=== PATIENT | female | born 1940 | race Caucasian/White ===

== ENCOUNTER 2023-01-03 11:49 | Emergency (ER) | payer OTHER ==
--- OUTSIDE RECORDS SUMMARY | 2023-01-03 12:00 | XMS REPORT | Continuity of Care Document ---
:1940 Author Organization [facility] t Address [address] [facility] [address] [place] [id number] Care Team Providers Name Role Phone Kymberly Stover MD Primary Care Physician [phone] Nathalie Rivers MA Attending Clinician Unavailable Sakina CRUZ, Wild Attending Clinician Therapy, [facility] Attending Clinician Unavailable Hawa Rolon MD Attending Clinician HAWA ROLON Attending Clinician Unavailable Doctor Unassigned, Wrens Attending Clinician Unavailable Lavelle Zacraias Attending Clinician Unavailable Lauren Valente MD Attending Clinician Pedro VORA, Neli Attending Clinician Steve Hanna DO Attending Clinician Selene Vila MD Attending Clinician Ck JAIN, Marc Attending Clinician Unavailable Kymberly Stover MD Attending Clinician [phone] Sarah Arroyo RN Attending Clinician Unavailable Jacquie CRUZ, Andres Kirkland Attending Clinician Maikol JAIN, [facility] Attending Clinician Unavailable TONI PAYNE Attending Clinician Unavailable KYMBERLY STOVER Attending Clinician Unavailable DONALD SMITH Attending Clinician Unavailable Carlos Alberto Cash Attending Clinician Unavailable Lavelle Zacarias Admitting Clinician Unavailable WILD PRESLEY Admitting Clinician Unavailable Carlos Alberto Cash Admitting Clinician Unavailable Payers Payer Name Policy Type Policy Number Effective Date Expiration Date S ource Problems Condition Condition Condition Status Onset Resolution Last Treating Co mments Source Name Details Category Date Date Treatment Clinician Date 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 10-05 st 00:00: Hospita 00 l Dysuria Dysuria Disease Active Univers 7-12 ity of 00:00: [place] 00 [facility] Acute Acute Disease Active Univers cystitis cystitis 01-16 ity of without without 00:00: [place] hematuria hematuria 00 [facility] Atrial Atrial Disease Active Univers fibrillati fibrillati 305 it y of on with on with 00:00: [place] RVR RVR 00 [facility] Chronic Chronic Disease Active Univers pain of pain of 1-29 [place]y [place] knees [place] [facility] Anxiety Anxiety Disease Active Methodi 01-28 00:00: Hospita 00 l Benign Benign Disease Active Methodi essential essential 01-28 hypertensi hypertensi 00:00: Ho spita on on 00 l Insomnia Insomnia Disease Active Meth[facility] di 01-28 00:00: Hospita 00 l Prediabete Prediabete Disease Active M ethodi s s 01-28 00:00: Hospita 00 l Seasonal Seasonal Disease Active Meth[facility] di allergies allergies 01-28 00:00: Hospita 00 l AF (atrial AF (atrial Disease Active M ethodi fibrillati fibrillati 01-28 on) on) 00:00: Hospita 00 l Diarrhea Diarrhea Disease Active 2015-07 [facility] di 0 00:00: Hospita 00 l Abdominal Abdominal Disease Active 2015-07 Met [facility] cramps cramps 0 00:00: Hospita 00 l 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 00:00: Hospit a 00 l Lactose Lactose Disease Active Methodi intoleranc intoleranc 1- st e e 00:00: Hospita 00 l Change in Change in Disease Active Met hodi bowel bowel st habit habit Hospita l Chronic Chronic Disease Active Methodi diarrhea diarrhea st Hospita l Diverticul Diverticul Disease Active M ethodi osis osis st Hospita l Hemorrhoid Hemorrhoid Disease Active M ethodi s s st Hospita l Fecal Fecal Disease Active Methodi incontinen incontinen st ce ce Hospita l Change in Change in Disease Active Met hodi bowel bowel st habit habit Hospita l Allergies, Adverse Reactions, Alerts Allergy Allergy Status Severity Reaction(s) Onset Inactive Treating Comm ents Source Name Type Date Date Clinician PENICILL DRUG Active N/V 20190 Univers IN INGREDI 3-05 ity of 00:00: [place] 00 [facility] Penicill Propensi Active Nausea 0 Univer s in ty to and/or 09-09 ity of adverse Vomiting 00:00: [place] reaction 00 Medical s Branch Penicill Propensi Active Nausea 0 Univer s in ty to and/or 305 ity of adverse Vomiting 00:00: [place] reaction 00 Medical s Branch Codeine Propensi Active Hallucinatio 2018-0 M ethodi ty to ns 02-05 st adverse 00:00: Hospita reaction 00 l s to drug CODEINE DRUG Active Hallucinates Uni vers INGREDI 02-05 ity of 00:00: [place] 00 Medical Branch Codeine Propensi Active Hallucinatio 2018-0 U nivers ty to ns 02-05 ity of adverse 00:00: [place] reaction 00 Medical s Branch Penicill DA Active SV 2016-0 [facility]12 [place] [facility] codeine DA Active SV [facility] 5[facility]12 [place] 00:00: d 00 Medical [place] Penicill DA Active SV VOMITING [facility] ins 5[facility]12 [place] 00:[facility]: d [facility] codeine DA Active SV HALLUCINATIO 2016-0 [facility] NS 5-12 [place] 00:[facility]: d 00 [facility] Family History Family Member Diagnosis Comments Start Date Stop Date Source Natural brother Stroke [facility] Natural father Heart attack [facility] Natural mother [facility] Paternal grandfather [facility] Social History Social Habit Start Date Stop Date Quantity Comments Source Gender identity [facility] Sexual orientation [facility] History SDOH [facility] Alcohol Frequency Hospita l History SDOH [facility] Alcohol Std Drinks Hospit al History SDOH [facility] Exposure [facility] Not sure [facility] SARS-CoV-2 (event) Hospit al History of Social 2022-09-11 2022-09-[address] function 00:00:00 00:00:00 Hospital Alcohol intake 2021-11-29 2021-11-29 Current drinker [facility] 00:00:00 00:00:00 of alcohol Hospital (finding) Tobacco use and 2018-02-05 2018-02-05 Smokeless [facility] exposure 00:00:00 00:00:00 tobacco non-user Hospital Alcohol Comment 2016-06-05 2016-06-05 I don't drink [facility] 00:00:00 00:00:00 every Hospital week/occasionall y Sex Assigned At [birth year] [facility] Smoking Status Start Date Stop Date Source Never smoked tobacco [facility] Medications Ordered Filled Start Stop Current Ordering Indication Dosage Frequency Signature Comments Components Source Medication Medication Date Date Medication? Clinician (SIG) Name Name gabapentin Yes 300mg Q.[id number] Take 300 [facility] (NEURONTIN) 1-19 [id number] mg by s t 300 mg 08:59: 3D mouth 3 Hospita capsule 14 (three) l times a day. atorvastati Yes 20mg QD Take 20 mg Methodi n (LIPITOR) 1-[address] 20 mg 08:59: daily. Hospita tablet 14 Default OP l ins cholecalcif Yes 1000U QD Take 1,000 Methodi jerry, 1-[address] vitamin D3, 08:59: mouth Hospi ta (cholecalci 14 daily. l ferol) 1,000 unit tablet gabapentin Yes 300mg Q.[id number] Take 300 [facility] (NEURONTIN) 1-19 [id number] mg by s t 300 mg 08:59: 3D mouth 3 Hospita capsule 14 (three) l times a day. atorvastati Yes 20mg QD Take 20 mg Methodi n (LIPITOR) 1-[address] 20 mg 08:59: daily. Hospita tablet 14 Default OP l ins cholecalcif 2022-0 Yes 1000U QD Take 1,000 Methodi jerry, 1-[address] vitamin D3, 08:59: mouth Hospi ta (cholecalci 14 daily. l ferol) 1,000 unit tablet gabapentin 2022-0 Yes 300mg Q.[id number] Take 300 [facility] (NEURONTIN) 1-19 [id number] mg by s t 300 mg 08:59: 3D mouth 3 Hospita capsule 14 (three) l times a day. atorvastati 2022-0 Yes 20mg QD Take 20 mg Methodi n (LIPITOR) 1-[address] 20 mg 08:59: daily. Hospita tablet 14 Default OP l ins cholecalcif 2022-0 Yes 1000U QD Take 1,000 Methodi jerry, 1-[address] vitamin D3, 08:59: mouth Hospi ta (cholecalci 14 daily. l ferol) 1,000 unit tablet gabapentin 2022-0 Yes 300mg Q.[id number] Take 300 [facility] (NEURONTIN) 1-19 [id number] mg by s t 300 mg 08:59: 3D mouth 3 Hospita capsule 14 (three) l times a day. atorvastati 2022-0 Yes 20mg QD Take 20 mg Methodi n (LIPITOR) 1-[address] 20 mg 08:59: daily. Hospita tablet 14 Default OP l ins cholecalcif 2022-0 Yes 1000U QD Take 1,000 Methodi jerry, 1-[address] vitamin D3, 08:59: mouth Hospi ta (cholecalci 14 daily. l ferol) 1,000 unit tablet gabapentin 2022-0 Yes 300mg Q.[id number] Take 300 [facility] (NEURONTIN) 1-19 [id number] mg by s t 300 mg 08:59: 3D mouth 3 Hospita capsule 14 (three) l times a day. atorvastati 2022-0 Yes 20mg QD Take 20 mg Methodi n (LIPITOR) 1-[address] 20 mg 08:59: daily. Hospita tablet 14 Default OP l ins cholecalcif 2022-0 Yes 1000U QD Take 1,000 Methodi jerry, 1-[address] vitamin D3, 08:59: mouth Hospi ta (cholecalci 14 daily. l ferol) 1,000 unit tablet gabapentin 2021-0 Yes 300mg Q.[id number] Take 300 Methodi (NEURONTIN) 1-19 [id number] mg by s t 300 mg 08:59: 3D mouth 3 Hospita capsule 14 (three) l times a day. atorvastati 2021-0 Yes 20mg QD Take 20 mg Methodi n (LIPITOR) 1-[address] 20 mg 08:59: daily. Hospita tablet 14 Default OP l ins cholecalcif 2021-0 Yes 1000U QD Take 1,000 Methodi jerry, 1-[address] vitamin D3, 08:59: mouth Hospi ta (cholecalci 14 daily. l ferol) 1,000 unit tablet gabapentin 2021-0 Yes 300mg Q.[id number] Take 300 [facility] (NEURONTIN) 1-19 [id number] mg by s t 300 mg 08:59: 3D mouth 3 Hospita capsule 14 (three) l times a day. atorvastati 0 Yes 20mg QD Take 20 mg Methodi n (LIPITOR) 1-[address] 20 mg 08:59: daily. Hospita tablet 14 Default OP l ins cholecalcif 0 Yes 1000U QD Take 1,000 Methodi jerry, 1-[address] vitamin D3, 08:59: mouth Hospi ta (cholecalci 14 daily. l ferol) 1,000 unit tablet lisinopril Yes 20mg Q.5D Take 20 mg M ethodi (PRINIVIL,Z 03-[address] ESTRIL) 20 14:21: (two) Hospit a mg tablet 15 times a l day. MULTIVIT,AR Yes Take by Met hodi [id number] 03-[address] ITK-CQ10 14:21: Hospita ORAL 15 l vit B comp 0 Yes 1{tbl} QD Take 1 Met [facility]odi no.3-folic- 03-[address] C-biotin 14:21: mouth Hospita (NEPHRO-VIT 15 daily. l E RX) 1-60-300 mg-mg-mcg tablet lisinopril 0 Yes 20mg Q.5D Take 20 mg M ethodi (PRINIVIL,Z 03-[address] ESTRIL) 20 14:21: (two) Hospit a mg tablet 15 times a l day. MULTIVIT,AR Yes Take by Met gilles [id number] 03-29 mouth. ITK-CQ10 14:21: Hospita ORAL 15 l vit B comp 2020-0 Yes 1{tbl} QD Take 1 Met hodi no.3-folic- 9-[address] C-biotin 14:21: mouth Hospita (NEPHRO-VIT 15 daily. l E RX) 1-60-300 mg-mg-mcg tablet lisinopril 0 Yes 20mg Q.5D Take 20 mg M ethodi (PRINIVIL,Z 03-[address] ESTRIL) 20 14:21: (two) Hospit a mg tablet 15 times a l day. MULTIVIT,AR Yes Take by Met gilles [id number] 03-29 mouth. ITK-CQ10 14:21: Hospita ORAL 15 l vit B comp 0 Yes 1{tbl} QD Take 1 Met hodi no.3-folic- 9-[address] C-biotin 14:21: mouth Hospita (NEPHRO-VIT 15 daily. l E RX) 1-60-300 mg-mg-mcg tablet lisinopril 0 Yes 20mg Q.5D Take 20 mg M ethodi (PRINIVIL,Z 03-[address] ESTRIL) 20 14:21: (two) Hospit a mg tablet 15 times a l day. MULTIVIT,AR Yes Take by Met gilles [id number] 03-29 mouth. ITK-CQ10 14:21: Hospita ORAL 15 l vit B comp 2020-0 Yes 1{tbl} QD Take 1 Met hodi no.3-folic- 9-[address] C-biotin 14:21: mouth Hospita (NEPHRO-VIT 15 daily. l E RX) 1-60-300 mg-mg-mcg tablet lisinopril 2020-0 Yes 20mg Q.5D Take 20 mg M ethodi (PRINIVIL,Z 03-[address] ESTRIL) 20 14:21: (two) Hospit a mg tablet 15 times a l day. MULTIVIT,AR Yes Take by Met gilles [id number] 03-29 mouth. ITK-CQ10 14:21: Hospita ORAL 15 l vit B comp Yes 1{tbl} QD Take 1 Met hodi no.3-folic- 9-[address] C-biotin 14:21: mouth Hospita (NEPHRO-VIT 15 daily. l E RX) 1-60-300 mg-mg-mcg tablet lisinopril Yes 20mg Q.5D Take 20 mg M ethodi (PRINIVIL,Z 03-[address] ESTRIL) 20 14:21: (two) Hospit a mg tablet 15 times a l day. MULTIVIT,AR Yes Take by Met gilles [id number] 03-29 mouth. ITK-CQ10 14:21: Hospita ORAL 15 l vit B comp Yes 1{tbl} QD Take 1 Met hodi no.3-folic- 9-[address] C-biotin 14:21: mouth Hospita (NEPHRO-VIT 15 daily. l E RX) 1-60-300 mg-mg-mcg tablet lisinopril Yes 20mg Q.5D Take 20 mg M ethodi (PRINIVIL,Z 03-[address] ESTRIL) 20 14:21: (two) Hospit a mg tablet 15 times a l day. MULTIVIT,AR Yes Take by Met gilles [id number] 03-29 mouth. ITK-CQ10 14:21: Hospita ORAL 15 l vit B comp Yes 1{tbl} QD Take 1 Met hodi no.3-folic- 9-[address] C-biotin 14:21: mouth Hospita (NEPHRO-VIT 15 daily. l E RX) 1-60-300 mg-mg-mcg tablet casirivimab 202- No [id number] 1200mg 1,200 mg, Univers -imdevimab 03-10 Subcutaneo it y of (REGEN-COV 15:32: 15:18 [place], [place], [place] (EUA[place] 00 :00 1 dose, Medical injection 03/10/21 Bran ch 1,200 mg at 1045, Routine casirivimab 2020- No [id number] 1200mg 1,200 mg, Univers -imdevimab 03-10 Subcutaneo it y of (REGEN-COV 15:32: 15:18 us, ONCE, [place] (EUA[place] 00 :00 1 dose, Medical injection 03/10/21 Bran ch 1,200 mg at 1045, Routine MULTIVIT,AR 2019-07 Yes Take by Met hodi [id number] 0-[address] ITK-CQ10 15:26: Hospita ORAL 08 l vit B comp 2019-07 Yes 1{tbl} QD Take 1 Met [facility]odi no.3-folic- 0-[address] C-biotin 15:26: mouth Hospita (NEPHRO-VIT 08 daily. l E RX) 1-60-300 mg-mg-mcg tablet lisinopril 2019-07 Yes 20mg Q.5D Take 20 mg M ethodi (PRINIVIL,Z 0-[address] ESTRIL) 20 15:23: (two) Hospit a mg tablet 40 times a l day. zolpidem 10 Yes [id number] 10mg Take 1 Univers mg tablet 4-28 tablet by ity o f 00:00: mouth at [place] 00 bedtime as Medical needed for Branch Insomnia. Keep on file until patient calls. zolpidem 10 Yes [id number] 10mg Take 1 Univers mg tablet 4-28 tablet by ity o f 00:00: mouth at [place] 00 bedtime as Medical needed for Branch Insomnia. Keep on file until patient calls. zolpidem 10 0 Yes [id number] 10mg Take 1 Univers mg tablet 4-28 tablet by ity o f 00:00: mouth at [place] 00 bedtime as Medical needed for Branch Insomnia. Keep on file until patient calls. zolpidem 10 Yes [id number] 10mg Take 1 Univers mg tablet 4-28 tablet by ity o f 00:00: mouth at [place] 00 bedtime as Medical needed for Branch Insomnia. Keep on file until patient calls. zolpidem 10 0 Yes [id number] 10mg Take 1 Univers mg tablet 4-28 tablet by ity o f 00:00: mouth at [place] 00 bedtime as Medical needed for Branch Insomnia. Keep on file until patient calls. zolpidem 10 Yes [id number] 10mg Take 1 Univers mg tablet 4-28 tablet by ity o f 00:00: mouth at [place] 00 bedtime as Medical needed for Branch Insomnia. Keep on file until patient calls. zolpidem 10 Yes [id number] 10mg Take 1 Univers mg tablet 4-28 tablet by ity o f 00:00: mouth at [place] 00 bedtime as Medical needed for Branch Insomnia. Keep on file until patient calls. zolpidem 10 Yes [id number] 10mg Take 1 Univers mg tablet 4-28 tablet by ity o f 00:00: mouth at [place] 00 bedtime as Medical needed for Branch Insomnia. Keep on file until patient calls. zolpidem 10 Yes [id number] 10mg Take 1 Univers mg tablet 4-28 tablet by ity o f 00:00: mouth at [place] 00 bedtime as Medical needed for Branch Insomnia. Keep on file until patient calls. zolpidem 10 Yes [id number] 10mg Take 1 Univers mg tablet 4-28 tablet by ity o f 00:00: mouth at [place] 00 bedtime as Medical needed for Branch Insomnia. Keep on file until patient calls. zolpidem 10 Yes [id number] 10mg Take 1 Univers mg tablet 4-28 tablet by ity o f 00:00: mouth at [place] 00 bedtime as Medical needed for Branch Insomnia. Keep on file until patient calls. zolpidem 10 Yes [id number] 10mg Take 1 Univers mg tablet 4-28 tablet by ity o f 00:00: mouth at [place] 00 bedtime as Medical needed for Branch Insomnia. Keep on file until patient calls. zolpidem 10 Yes [id number] 10mg Take 1 Univers mg tablet 4-28 tablet by ity o f 00:00: mouth at [place] 00 bedtime as Medical needed for Branch Insomnia. Keep on file until patient calls. zolpidem 10 Yes [id number] 10mg Take 1 Univers mg tablet 4-28 tablet by ity o f 00:00: mouth at [place] 00 bedtime as Medical needed for Branch Insomnia. Keep on file until patient calls. zolpidem 10 2020-0 Yes [id number] 10mg Take 1 Univers mg tablet 4-28 tablet by ity o f 00:00: mouth at [place] 00 bedtime as Medical needed for Branch Insomnia. Keep on file until patient calls. CHOLESTYRAM 2020-0 Yes [id number] TAKE 1 Univers INE 4 gram 1-11 PACKET BY ity of packet 00:00: [facility] 3 [place] (THREE) Medical TIMES Branch DAILY WITH MEALS. CHOLESTYRAM 2020-0 Yes [id number] TAKE 1 Univers INE 4 gram 1-11 PACKET BY ity of packet 00:00: [address] (THREE) Medical TIMES Branch DAILY WITH MEALS. CHOLESTYRAM 2020-0 Yes [id number] TAKE 1 Univers INE 4 gram 1-11 PACKET BY ity of packet 00:00: [address] (THREE) Medical TIMES Branch DAILY WITH MEALS. CHOLESTYRAM 2020-0 Yes [id number] TAKE 1 Univers INE 4 gram 1-11 PACKET BY ity of packet 00:00: [address] (THREE) Medical TIMES Branch DAILY WITH MEALS. CHOLESTYRAM 2020-0 Yes [id number] TAKE 1 Univers INE 4 gram 1-11 PACKET BY ity of packet 00:00: [address] (THREE) Medical TIMES Branch DAILY WITH MEALS. CHOLESTYRAM 2020-0 Yes [id number] TAKE 1 Univers INE 4 gram 1-11 PACKET BY ity of packet 00:00: [address] (THREE) Medical TIMES Branch DAILY WITH MEALS. CHOLESTYRAM 2020-0 Yes [id number] TAKE 1 Univers INE 4 gram 1-11 PACKET BY ity of packet 00:00: [address] (THREE) Medical TIMES Branch DAILY WITH MEALS. CHOLESTYRAM 2020-0 Yes [id number] TAKE 1 Univers INE 4 gram 1-11 PACKET BY ity of packet 00:00: [address] (THREE) Medical TIMES Branch DAILY WITH MEALS. CHOLESTYRAM 2020-0 Yes [id number] TAKE 1 Univers INE 4 gram 1-11 PACKET BY ity of packet 00:00: [address] (THREE) Medical TIMES Branch DAILY WITH MEALS. CHOLESTYRAM 2020-0 Yes [id number] TAKE 1 Univers INE 4 gram 1-11 PACKET BY ity of packet 00:00: MOUTH 3 (THREE) Medical TIMES Branch DAILY WITH MEALS. CHOLESTYRAM 2020-0 Yes [id number] TAKE 1 Univers INE 4 gram 1-11 PACKET BY ity of packet 00:00: MOUTH 3 (THREE) Medical TIMES Branch DAILY WITH MEALS. CHOLESTYRAM 2020-0 Yes [id number] TAKE 1 Univers INE 4 gram 1-11 PACKET BY ity of packet 00:00: MOUTH (THREE) Medical TIMES Branch DAILY WITH MEALS. CHOLESTYRAM 2020-0 Yes [id number] TAKE 1 Univers INE 4 gram 1-11 PACKET BY ity of packet 00:00: MOUTH (THREE) Medical TIMES Branch DAILY WITH MEALS. CHOLESTYRAM 2020-0 Yes [id number] TAKE 1 Univers INE 4 gram 1-11 PACKET BY ity of packet 00:00: [facility] (THREE) Medical TIMES Branch DAILY WITH MEALS. CHOLESTYRAM 2020-0 Yes [id number] TAKE 1 Univers INE 4 gram 1-11 PACKET BY ity of packet 00:00: MOUTH (THREE) Medical TIMES Branch DAILY WITH MEALS. CHOLESTYRAM 2020-0 Yes [id number] TAKE 1 Univers INE 4 gram 1-11 PACKET BY ity of packet 00:00: MOUTH (THREE) Medical TIMES Branch DAILY WITH MEALS. CHOLESTYRAM 2020-0 Yes [id number] TAKE 1 Univers INE 4 gram 1-11 PACKET BY ity of packet 00:00: MOUTH (THREE) Medical TIMES Branch DAILY WITH MEALS. CHOLESTYRAM 2020-0 Yes [id number] TAKE 1 Univers INE 4 gram 1-11 PACKET BY ity of packet 00:00: MOUTH (THREE) Medical TIMES Branch DAILY WITH MEALS. CHOLESTYRAM 2020-0 Yes [id number] TAKE 1 Univers INE 4 gram 1-11 PACKET BY ity of packet 00:00: MOUTH (THREE) Medical TIMES Branch DAILY WITH MEALS. CHOLESTYRAM 2020-0 Yes [id number] TAKE 1 Univers INE 4 gram 1-11 PACKET BY ity of packet 00:00: MOUTH 3 (THREE) Medical TIMES Branch DAILY WITH MEALS. CHOLESTYRAM 2020-0 Yes [id number] TAKE 1 Univers INE 4 gram 1-11 PACKET BY ity of packet 00:00: MOUTH 3 [place] 00 (THREE) Medical TIMES Branch DAILY WITH MEALS. CHOLESTYRAM 2020-0 Yes [id number] TAKE 1 Univers INE 4 gram 1-11 PACKET BY ity of packet 00:00: MOUTH 3 [place] [address] (THREE) Medical TIMES Branch DAILY WITH MEALS. CHOLESTYRAM 2020-0 Yes [id number] TAKE 1 Univers INE 4 gram 1-11 PACKET BY ity of packet 00:00: MOUTH 3 [place] [address] (THREE) Medical TIMES Branch DAILY WITH MEALS. rosuvastati 2018-07 Yes 10mg Take 10 mg Univers n 10 mg 1-11 by mouth ity of tablet 19:26: at [place] [address] bedtime. Medical Branch rosuvastati 2018-07 Yes 10mg Take 10 mg Univers n 10 mg 1-11 by mouth ity of tablet 19:26: at [place] [address] bedtime. Medical Branch rosuvastati 2018-07 Yes 10mg Take 10 mg Univers n 10 mg 1-11 by mouth ity of tablet 19:26: at [place] [address] bedtime. Medical Branch rosuvastati 2018-07 Yes 10mg Take 10 mg Univers n 10 mg 1-11 by mouth ity of tablet 19:26: at [place] [address] bedtime. Medical Branch rosuvastati 2018-07 Yes 10mg Take 10 mg Univers n 10 mg 1-11 by mouth ity of tablet 19:26: at [place] [address] bedtime. Medical Branch rosuvastati 2018-07 Yes 10mg Take 10 mg Univers n 10 mg 1-11 by mouth ity of tablet 19:26: at [place] [address] bedtime. Medical Branch rosuvastati 2018-07 Yes 10mg Take 10 mg Univers n 10 mg 1-11 by mouth ity of tablet 19:26: at [place] [address] bedtime. Medical Branch rosuvastati 2018-07 Yes 10mg Take 10 mg Univers n 10 mg 1-11 by mouth ity of tablet 19:26: at [place] [address] bedtime. Medical Branch rosuvastati 2018-07 Yes 10mg Take 10 mg Univers n 10 mg 1-11 by mouth ity of tablet 19:26: at [place] [address] bedtime. Medical Branch rosuvastati 2018-07 Yes 10mg Take 10 mg Univers n 10 mg 1-11 by mouth ity of tablet 19:26: at [place] [address] bedtime. Medical Branch rosuvastati 2018-07 Yes 10mg Take 10 mg Univers n 10 mg 1-11 by mouth ity of tablet 19:26: at [place] [address] bedtime. Medical Branch rosuvastati 2018-07 Yes 10mg Take 10 mg Univers n 10 mg 1-11 by mouth ity of tablet 19:26: at [place] [address] bedtime. Medical Branch rosuvastati 2018-07 Yes 10mg Take 10 mg Univers n 10 mg 1-11 by mouth ity of tablet 19:26: at [place] [address] bedtime. Medical Branch rosuvastati 2018-07 Yes 10mg Take 10 mg Univers n 10 mg 1-11 by mouth ity of tablet 19:26: at [place] [address] bedtime. Medical Branch rosuvastati 2018-07 Yes 10mg Take 10 mg Univers n 10 mg 1-11 by mouth ity of tablet 19:26: at [place] [address] bedtime. Medical Branch rosuvastati 2018-07 Yes 10mg Take 10 mg Univers n 10 mg 1-11 by mouth ity of tablet 19:26: at [place] [address] bedtime. Medical Branch rosuvastati 2018-07 Yes 10mg Take 10 mg Univers n 10 mg 1-11 by mouth ity of tablet 19:26: at [place] [address] bedtime. Medical Branch rosuvastati 2018-07 Yes 10mg Take 10 mg Univers n 10 mg 1-11 by mouth ity of tablet 19:26: at [place] [address] bedtime. Medical Branch rosuvastati 2018-07 Yes 10mg Take 10 mg Univers n 10 mg 1-11 by mouth ity of tablet 19:26: at [place] [address] bedtime. Medical Branch rosuvastati 2018-07 Yes 10mg Take 10 mg Univers n 10 mg 1-11 by mouth ity of tablet 19:26: at [place] [address] bedtime. Medical Branch rosuvastati 2018-07 Yes 10mg Take 10 mg Univers n 10 mg 1-11 by mouth ity of tablet 19:26: at [place] [address] bedtime. Medical Branch rivaroxaban 2018-07 Yes 15mg Take 15 mg Univers (XARELTO) 1-11 by mouth ity of 20 mg 19:26: daily. [place] [address] Medical Branch rivaroxaban 2018-07 Yes 15mg Take 15 mg Univers (XARELTO) 1-11 by mouth ity of 20 mg 19:26: daily. [place] [facility] 52 Medical Branch rivaroxaban 2018-07 Yes 15mg Take 15 mg Univers (XARELTO) 1-11 by mouth ity of 20 mg 19:26: daily. [address] rivaroxaban 2018-07 Yes 15mg Take 15 mg Univers (XARELTO) 1-11 by mouth ity of 20 mg 19:26: daily. [address] Branch rivaroxaban 2018-07 Yes 15mg Take 15 mg Univers (XARELTO) 1-11 by mouth ity of 20 mg 19:26: daily. [address] rivaroxaban 2018-07 Yes 15mg Take 15 mg Univers (XARELTO) 1-11 by mouth ity of 20 mg 19:26: daily. [address] rivaroxaban 2018-07 Yes 15mg Take 15 mg Univers (XARELTO) 1-11 by mouth ity of 20 mg 19:26: daily. [address] rivaroxaban 2018-07 Yes 15mg Take 15 mg Univers (XARELTO) 1-11 by mouth ity of 20 mg 19:26: daily. [address] rivaroxaban 2018-07 Yes 15mg Take 15 mg Univers (XARELTO) 1-11 by mouth ity of 20 mg 19:26: daily. [address] rivaroxaban 2018-07 Yes 15mg Take 15 mg Univers (XARELTO) 1-11 by mouth ity of 20 mg 19:26: daily. [address] rivaroxaban 2018-07 Yes 15mg Take 15 mg Univers (XARELTO) 1-11 by mouth ity of 20 mg 19:26: daily. [address] rivaroxaban 2018-07 Yes 15mg Take 15 mg Univers (XARELTO) 1-11 by mouth ity of 20 mg 19:26: daily. [address] rivaroxaban 2018-07 Yes 15mg Take 15 mg Univers (XARELTO) 1-11 by mouth ity of 20 mg 19:26: daily. [address] rivaroxaban 2018-07 Yes 15mg Take 15 mg Univers (XARELTO) 1-11 by mouth ity of 20 mg 19:26: daily. [address] rivaroxaban 2018-07 Yes 15mg Take 15 mg Univers (XARELTO) 1-11 by mouth ity of 20 mg 19:26: daily. [address] [address] rivaroxaban 2018-07 Yes 15mg Take 15 mg [facility] (XARELTO) 1-11 by mouth ity of 20 mg 19:26: daily. [place] [address] [facility] Branch rivaroxaban 2018-07 Yes 15mg Take 15 mg [facility] (XARELTO) 1-11 by mouth ity of 20 mg 19:26: daily. [place] tablet 52 Medical Branch rivaroxaban 2018-07 Yes 15mg Take 15 mg [facility] (XARELTO) 1-11 by mouth ity of 20 mg 19:26: daily. [address] Branch rivaroxaban 2018-07 Yes 15mg Take 15 mg [facility] (XARELTO) 1-11 by mouth ity of 20 mg 19:26: daily. [place] tablet [address] [place] [address] Branch rivaroxaban 2018-07 Yes 15mg Take 15 mg [facility] (XARELTO) 1-11 by mouth ity of 20 mg 19:26: daily. [address] Branch rivaroxaban 2018-07 Yes 15mg Take 15 mg [facility] (XARELTO) 1-11 by mouth ity of 20 mg 19:26: daily. [address] nebivolol 5 2018-07 Yes 2.5mg Take 2.5 U nivers mg tablet 1-11 mg by ity of 19:26: mouth. [address] nebivolol 5 2018-07 Yes 2.5mg Take 2.5 U nivers mg tablet 1-11 mg by ity of 19:26: mouth. [address] nebivolol 5 2018-07 Yes 2.5mg Take 2.5 U nivers mg tablet 1-11 mg by ity of 19:26: mouth. [address] nebivolol 5 2018-07 Yes 2.5mg Take 2.5 U nivers mg tablet 1-11 mg by ity of 19:26: mouth. [address] nebivolol 5 2018-07 Yes 2.5mg Take 2.5 U nivers mg tablet 1-11 mg by ity of 19:26: mouth. [address] nebivolol 5 2018-07 Yes 2.5mg Take 2.5 U nivers mg tablet 1-11 mg by ity of 19:26: mouth. [address] nebivolol 5 2018-07 Yes 2.5mg Take 2.5 U nivers mg tablet 1-11 mg by ity of 19:26: mouth. [address] nebivolol 5 2018-07 Yes 2.5mg Take 2.5 U nivers mg tablet 1-11 mg by ity of 19:26: mouth. [place] [address] Medical Branch nebivolol 5 2018-07 Yes 2.5mg Take 2.5 U nivers mg tablet 1-11 mg by ity of 19:26: mouth. [address] Branch nebivolol 5 2018-07 Yes 2.5mg Take 2.5 U nivers mg tablet 1-11 mg by ity of 19:26: mouth. [address] Branch nebivolol 5 2018-07 Yes 2.5mg Take 2.5 U nivers mg tablet 1-11 mg by ity of 19:26: mouth. [address] nebivolol 5 2018-07 Yes 2.5mg Take 2.5 U nivers mg tablet 1-11 mg by ity of 19:26: mouth. [address] nebivolol 5 2018-07 Yes 2.5mg Take 2.5 U nivers mg tablet 1-11 mg by ity of 19:26: mouth. [address] nebivolol 5 2018-07 Yes 2.5mg Take 2.5 U nivers mg tablet 1-11 mg by ity of 19:26: mouth. [address] nebivolol 5 2018-07 Yes 2.5mg Take 2.5 U nivers mg tablet 1-11 mg by ity of 19:26: mouth. [address] nebivolol 2018-07 Yes 2.5mg Take 2.5 U nivers mg tablet 1-11 mg by ity of 19:26: mouth. [address] nebivolol 5 2018-07 Yes 2.5mg Take 2.5 U nivers mg tablet 1-11 mg by ity of 19:26: mouth. [address] nebivolol 5 2018-07 Yes 2.5mg Take 2.5 U nivers mg tablet 1-11 mg by ity of 19:26: mouth. [address] nebivolol 5 2018-07 Yes 2.5mg Take 2.5 U nivers mg tablet 1-11 mg by ity of 19:26: mouth. [address] nebivolol 5 2018-07 Yes 2.5mg Take 2.5 U nivers mg tablet 1-11 mg by ity of 19:26: mouth. [address] nebivolol 5 2018-07 Yes 2.5mg Take 2.5 U nivers mg tablet 1-11 mg by ity of 19:26: mouth. [address] Branch rosuvastati 2018-07 Yes 10mg Take 10 mg [facility] n 10 mg 1-11 by mouth ity of tablet 13:26: at [place] 53 bedtime. [facility] Branch rosuvastati 2018-07 Yes 10mg Take 10 mg Univers n 10 mg 1-11 by mouth ity of tablet 13:26: at [place] 53 bedtime. [facility] Branch rivaroxaban 2018-07 Yes 15mg Take 15 mg [facility] (XARELTO) 1-11 by mouth ity of 20 mg 13:26: daily. [place] [facility] 52 [facility] rivaroxaban 2018-07 Yes 15mg Take 15 mg [facility] (XARELTO) 1-11 by mouth ity of 20 mg 13:26: daily. [place] [facility] 52 [facility] nebivolol 5 2018-07 Yes 2.5mg Take 2.5 U nivers mg tablet 1-11 mg by ity of 13:26: mouth. [address] nebivolol 5 2018-07 Yes 2.5mg Take 2.5 U nivers mg tablet 1-11 mg by ity of 13:26: mouth. [address] ESCITALOPRA 2018-07 Yes [id number] TAKE 1 [facility] M OXALATE 0-30 TABLET BY ity o f 10 mg 00:00: MOUTH [place] tablet 00 EVERY DAY [facility] flecainide 2018-07 Yes 1{tbl} Take 1 Uni vers 50 mg 0-30 tablet by ity of tablet 00:00: mouth [place] 00 daily. [facility] ESCITALOPRA 2018-07 Yes [id number] TAKE 1 [facility] M OXALATE 0-30 TABLET BY ity o f 10 mg 00:00: MOUTH [place] tablet 00 EVERY DAY [facility] Branch flecainide 2018- Yes 1{tbl} Take 1 Uni vers 50 mg 0-30 tablet by ity of tablet 00:00: mouth [place] 00 daily. [facility] ESCITALOPRA 2018-07 Yes [id number] TAKE 1 [facility] M OXALATE 0-30 TABLET BY ity o f 10 mg 00:00: MOUTH [place] tablet 00 EVERY DAY [facility] flecainide 2018- Yes 1{tbl} Take 1 Uni vers 50 mg 0-30 tablet by ity of tablet 00:00: mouth [place] 00 daily. [facility] ESCITALOPRA 2018-07 Yes [id number] TAKE 1 [facility] M OXALATE 0-30 TABLET BY ity o f 10 mg 00:00: MOUTH [place] tablet 00 EVERY DAY Medical Branch flecainide 2018- Yes 1{tbl} Take 1 [facility] vers 50 mg 0-30 tablet by ity of tablet 00:00: mouth [place] 00 daily. Medical Branch ESCITALOPRA 2018-07 Yes [id number] TAKE 1 [facility] M OXALATE 0-30 TABLET BY ity o f 10 mg 00:00: MOUTH [place] tablet 00 EVERY DAY Medical Branch flecainide 2018- Yes 1{tbl} Take 1 [facility] vers 50 mg 0-30 tablet by ity of tablet 00:00: mouth [place] 00 daily. Medical Branch ESCITALOPRA 2018-07 Yes [id number] TAKE 1 [facility] M OXALATE 0-30 TABLET BY ity o f 10 mg 00:00: MOUTH [place] tablet 00 EVERY DAY Medical Branch flecainide 2018- Yes 1{tbl} Take 1 [facility] vers 50 mg 0-30 tablet by ity of tablet 00:00: mouth [place] 00 daily. Medical Branch ESCITALOPRA 2018-07 Yes [id number] TAKE 1 [facility] M OXALATE 0-30 TABLET BY ity o f 10 mg 00:00: MOUTH [place] tablet 00 EVERY DAY Medical Branch flecainide 2018- Yes 1{tbl} Take 1 [facility] vers 50 mg 0-30 tablet by ity of tablet 00:00: mouth [place] 00 daily. Medical Branch ESCITALOPRA 2018-07 Yes [id number] TAKE 1 [facility] M OXALATE 0-30 TABLET BY ity o f 10 mg 00:00: MOUTH [place] tablet 00 EVERY DAY Medical Branch flecainide 2018- Yes 1{tbl} Take 1 [facility] vers 50 mg 0-30 tablet by ity of tablet 00:00: mouth [place] 00 daily. Medical Branch ESCITALOPRA 2018-07 Yes [id number] TAKE 1 [facility] M OXALATE 0-30 TABLET BY ity o f 10 mg 00:00: MOUTH [place] tablet 00 EVERY DAY Medical Branch ESCITALOPRA 2018- Yes [id number] TAKE 1 [facility] M OXALATE 0-30 TABLET BY ity o f 10 mg 00:00: MOUTH [place] tablet 00 EVERY DAY Medical Branch flecainide 2018- Yes 1{tbl} Take 1 [facility] vers 50 mg 0-30 tablet by ity of tablet 00:00: mouth [place] 00 daily. Medical Branch flecainide 2019- Yes 1{tbl} Take 1 [facility] vers 50 mg 0-30 tablet by ity of tablet 00:00: mouth [place] 00 daily. Medical Branch ESCITALOPRA 2018-07 Yes [id number] TAKE 1 [facility] M OXALATE 0-30 TABLET BY ity o f 10 mg 00:00: MOUTH [place] tablet 00 EVERY DAY Medical Branch flecainide 2018-07 Yes 1{tbl} Take 1 [facility] vers 50 mg 0-30 tablet by ity of tablet 00:00: mouth [place] 00 daily. Medical Branch ESCITALOPRA 2018-07 Yes [id number] TAKE 1 [facility] M OXALATE 0-30 TABLET BY ity o f 10 mg 00:00: MOUTH [place] tablet 00 EVERY DAY Medical Branch flecainide 2018- Yes 1{tbl} Take 1 [facility] vers 50 mg 0-30 tablet by ity of tablet 00:00: mouth [place] 00 daily. Medical Branch ESCITALOPRA 2018-07 Yes [id number] TAKE 1 [facility] M OXALATE 0-30 TABLET BY ity o f 10 mg 00:00: MOUTH [place] tablet 00 EVERY DAY Medical Branch flecainide 2018-07 Yes 1{tbl} Take 1 [facility] vers 50 mg 0-30 tablet by ity of tablet 00:00: mouth [place] 00 daily. Medical Branch ESCITALOPRA 2018-07 Yes [id number] TAKE 1 [facility] M OXALATE 0-30 TABLET BY ity o f 10 mg 00:00: MOUTH [place] tablet 00 EVERY DAY Medical Branch flecainide 2018- Yes 1{tbl} Take 1 [facility] vers 50 mg 0-30 tablet by ity of tablet 00:00: mouth [place] 00 daily. Medical Branch ESCITALOPRA 2018-07 Yes [id number] TAKE 1 [facility] M OXALATE 0-30 TABLET BY ity o f 10 mg 00:00: MOUTH [place] tablet 00 EVERY DAY Medical Branch flecainide 2019- Yes 1{tbl} Take 1 [facility] vers 50 mg 0-30 tablet by ity of tablet 00:00: mouth [place] 00 daily. Medical Branch ESCITALOPRA 2018-07 Yes [id number] TAKE 1 [facility] M OXALATE 0-30 TABLET BY ity o f 10 mg 00:00: MOUTH [place] tablet 00 EVERY DAY Medical Branch flecainide 2018- Yes 1{tbl} Take 1 [facility] vers 50 mg 0-30 tablet by ity of tablet 00:00: mouth [place] 00 daily. Medical Branch ESCITALOPRA 2018-07 Yes [id number] TAKE 1 [facility] M OXALATE 0-30 TABLET BY ity o f 10 mg 00:00: MOUTH [place] tablet 00 EVERY DAY Medical Branch flecainide 2018-07 Yes 1{tbl} Take 1 [facility] vers 50 mg 0-30 tablet by ity of tablet 00:00: mouth [place] 00 daily. Medical Branch ESCITALOPRA 2018-07 Yes [id number] TAKE 1 [facility] M OXALATE 0-30 TABLET BY ity o f 10 mg 00:00: MOUTH [place] tablet 00 EVERY DAY Medical Branch flecainide 2018-07 Yes 1{tbl} Take 1 [facility] vers 50 mg 0-30 tablet by ity of tablet 00:00: mouth [place] 00 daily. Medical Branch ESCITALOPRA 2018-07 Yes [id number] TAKE 1 [facility] M OXALATE 0-30 TABLET BY ity o f 10 mg 00:00: MOUTH [place] tablet 00 EVERY DAY Medical Branch flecainide 2018-07 Yes 1{tbl} Take 1 [facility] vers 50 mg 0-30 tablet by ity of tablet 00:00: mouth [place] 00 daily. Medical Branch ESCITALOPRA 2018-07 Yes [id number] TAKE 1 [facility] M OXALATE 0-30 TABLET BY ity o f 10 mg 00:00: MOUTH [place] tablet 00 EVERY DAY Medical Branch flecainide 2018-07 Yes 1{tbl} Take 1 [facility] vers 50 mg 0-30 tablet by ity of tablet 00:00: mouth [place] 00 daily. Medical Branch ESCITALOPRA 2018-07 Yes [id number] TAKE 1 [facility] M OXALATE 0-30 TABLET BY ity o f 10 mg 00:00: MOUTH [place] tablet 00 EVERY DAY Medical Branch flecainide 2018- Yes 1{tbl} Take 1 [facility] vers 50 mg 0-30 tablet by ity of tablet 00:00: mouth [place] 00 daily. Medical Branch ESCITALOPRA 2018-07 Yes [id number] TAKE 1 [facility] M OXALATE 0-30 TABLET BY ity o f 10 mg 00:00: MOUTH [place] tablet 00 EVERY DAY Medical Branch flecainide 2018- Yes 1{tbl} Take 1 [facility] vers 50 mg 0-30 tablet by ity of tablet 00:00: mouth [place] 00 daily. Medical Branch ESCITALOPRA 2018-07 Yes [id number] TAKE 1 [facility] M OXALATE 0-30 TABLET BY ity o f 10 mg 00:00: MOUTH [place] tablet 00 EVERY DAY Medical Branch flecainide 2019-1 Yes 1{tbl} Take 1 [facility] vers 50 mg 0-30 tablet by ity of tablet 00:00: mouth [place] 00 daily. Medical Branch ipratropium 2019-0 Yes 2{spray Use 2 Un zohra 0.03 % 8-02 } Sprays in ity of nasal spray 00:00: each nostril Medical every 12 Branch (twelve) hours. ipratropium 2019-0 Yes 2{spray Use 2 Un zohra 0.03 % 8-02 } Sprays in ity of nasal spray 00:00: each [place] nostril Medical every 12 Branch (twelve) hours. ipratropium 2019-0 Yes 2{spray Use 2 Un zohra 0.03 % 8-02 } Sprays in ity of nasal spray 00:00: each [place] nostril Medical every 12 Branch (twelve) hours. ipratropium 2019-0 Yes 2{spray Use 2 Un zohra 0.03 % 8-02 } Sprays in ity of nasal spray 00:00: each [place] nostril Medical every 12 Branch (twelve) hours. ipratropium 2019-0 Yes 2{spray Use 2 Un zohra 0.03 % 8-02 } Sprays in ity of nasal spray 00:00: each [place] nostril Medical every 12 Branch (twelve) hours. ipratropium 2019-0 Yes 2{spray Use 2 Un zohra 0.03 % 8-02 } Sprays in ity of nasal spray 00:00: each [place] nostril Medical every 12 Branch (twelve) hours. ipratropium 2019-0 Yes 2{spray Use 2 Un zohra 0.03 % 8-02 } Sprays in ity of nasal spray 00:00: each [place] nostril Medical every 12 Branch (twelve) hours. ipratropium 2019-0 Yes 2{spray Use 2 Un zohra 0.03 % 8-02 } Sprays in ity of nasal spray 00:00: each [place] nostril Medical every 12 Branch (twelve) hours. ipratropium 2019-0 Yes 2{spray Use 2 Un zohra 0.03 % 8-02 } Sprays in ity of nasal spray 00:00: each [place] nostril Medical every 12 Branch (twelve) hours. ipratropium 2019-0 Yes 2{spray Use 2 Un zohra 0.03 % 8-02 } Sprays in ity of nasal spray 00:00: each [place] nostril Medical every 12 Branch (twelve) hours. ipratropium 2019-0 Yes 2{spray Use 2 Un zohra 0.03 % 8-02 } Sprays in ity of nasal spray 00:00: each [place] nostril Medical every 12 Branch (twelve) hours. ipratropium 2019-0 Yes 2{spray Use 2 Un zohra 0.03 % 8-02 } Sprays in ity of nasal spray 00:00: each [place] nostril Medical every 12 Branch (twelve) hours. ipratropium 2019-0 Yes 2{spray Use 2 Un zohra 0.03 % 8-02 } Sprays in ity of nasal spray 00:00: each [place] nostril Medical every 12 Branch (twelve) hours. ipratropium 2019-0 Yes 2{spray Use 2 Un zohra 0.03 % 8-02 } Sprays in ity of nasal spray 00:00: each [place] nostril Medical every 12 Branch (twelve) hours. ipratropium 2019-0 Yes 2{spray Use 2 Un zohra 0.03 % 8-02 } Sprays in ity of nasal spray 00:00: each [place] nostril Medical every 12 Branch (twelve) hours. ipratropium 2019-0 Yes 2{spray Use 2 Un zohra 0.03 % 8-02 } Sprays in ity of nasal spray 00:00: each [place] nostril Medical every 12 Branch (twelve) hours. ipratropium 2019-0 Yes 2{spray Use 2 Un zohra 0.03 % 8-02 } Sprays in ity of nasal spray 00:00: each [place] nostril Medical every 12 Branch (twelve) hours. ipratropium 2019-0 Yes 2{spray Use 2 Un zohra 0.03 % 8-02 } Sprays in ity of nasal spray 00:00: each [place] nostril Medical every 12 Branch (twelve) hours. ipratropium 2019-0 Yes 2{spray Use 2 Un zohra 0.03 % 8-02 } Sprays in ity of nasal spray 00:00: each 00 nostril Medical every 12 Branch (twelve) hours. ipratropium 2019-0 Yes 2{spray Use 2 Un zohra 0.03 % 8-02 } Sprays in ity of nasal spray 00:00: each [place] 00 nostril Medical every 12 Branch (twelve) hours. ipratropium 2019-0 Yes 2{spray Use 2 Un zohra 0.03 % 8-02 } Sprays in ity of nasal spray 00:00: each [place] 00 nostril Medical every 12 Branch (twelve) hours. ipratropium 2019-0 Yes 2{spray Use 2 Un zohra 0.03 % 8-02 } Sprays in ity of nasal spray 00:00: each [place] nostril Medical every 12 Branch (twelve) hours. ipratropium 2019-0 Yes 2{spray Use 2 Un zohra 0.03 % 8-02 } Sprays in ity of nasal spray 00:00: each [place] 00 nostril Medical every 12 Branch (twelve) hours. ipratropium 2019-0 Yes 2{spray Use 2 Un zohra 0.03 % 8-02 } Sprays in ity of nasal spray 00:00: each [place] 00 nostril Medical every 12 Branch (twelve) hours. zolpidem Yes [id number] 10mg Take 1 [facility] mg tablet 7-23 tablet by ity o f 00:00: mouth at [place] 00 bedtime as Medical needed for Branch Insomnia. Keep on file until patient calls. zolpidem Yes [id number] 10mg Take 1 [facility] mg tablet 7-23 tablet by ity o f 00:00: mouth at [place] 00 bedtime as Medical needed for Branch Insomnia. Keep on file until patient calls. zolpidem 10 Yes [id number] 10mg Take 1 [facility] mg tablet 7-23 tablet by ity o f 00:00: mouth at [place] 00 bedtime as Medical needed for Branch Insomnia. Keep on file until patient calls. zolpidem 10 Yes [id number] 10mg Take 1 [facility] mg tablet 7-23 tablet by ity o f 00:00: mouth at [place] 00 bedtime as Medical needed for Branch Insomnia. Keep on file until patient calls. zolpidem 10 Yes [id number] 10mg Take 1 [facility] mg tablet 7-23 tablet by ity o f 00:00: mouth at [place] 00 bedtime as Medical needed for Branch Insomnia. Keep on file until patient calls. zolpidem 10 Yes [id number] 10mg Take 1 [facility] mg tablet 7-23 tablet by ity o f 00:00: mouth at [place] 00 bedtime as Medical needed for Branch Insomnia. Keep on file until patient calls. zolpidem 10 Yes [id number] 10mg Take 1 [facility] mg tablet 7-23 tablet by ity o f 00:00: mouth at [place] 00 bedtime as Medical needed for Branch Insomnia. Keep on file until patient calls. zolpidem 10 Yes [id number] 10mg Take 1 [facility] mg tablet 7-23 tablet by ity o f 00:00: mouth at [place] 00 bedtime as Medical needed for Branch Insomnia. Keep on file until patient calls. zolpidem 2020- No [id number] 10mg Take 1 [facility] mg tablet 7-23 04-28 tablet by ity of 00:00: 00:00 mouth at [place] 00 :00 bedtime as Medical needed for Branch Insomnia. Keep on file until patient calls. NEBIVOLOL Yes 5mg Take 5 mg Uni vers HCL 7-12 by mouth ity of (BYSTOLIC 14:40: daily. [place] ORAL) 05 Medical Branch rivaroxaban Yes 15mg Take 15 mg [facility] (XARELTO) 7-12 by mouth ity of 20 mg 14:40: daily. [place] tablet 05 Medical Branch rosuvastati Yes 10mg Take 10 mg [facility] n 10 mg 7-12 by mouth ity of tablet 14:40: at [place] 05 bedtime. Medical Branch NEBIVOLOL Yes 5mg Take 5 mg Uni vers HCL 7-12 by mouth ity of (BYSTOLIC 14:40: daily. [place] ORAL) 05 Medical Branch rivaroxaban 0 Yes 15mg Take 15 mg [facility] (XARELTO) 7-12 by mouth ity of 20 mg 14:40: daily. [place] tablet 05 Medical Branch rosuvastati Yes 10mg Take 10 mg [facility] n 10 mg 7-12 by mouth ity of tablet 14:40: at [place] 05 bedtime. Medical Branch Diclofenac 2018- Yes [id number] APPLY TO Univers Sodium 1 % 11-13 [id number] AFFECTED ity of gel 00:00: AREA 2-4 [place] 00 GRAMS Medical TWICE A Branch DAY NEEDED FOR PAIN pregabalin 2018- Yes [id number] 75mg Take 1 [facility] 75 mg 11-13 [id number] capsule by ity of capsule 00:00: mouth 3 [place] 00 (three) Medical times Branch daily. Diclofenac Yes [id number] APPLY TO Univers Sodium 1 % 11-13 [id number] AFFECTED ity of gel 00:00: AREA 2-4 [place] 00 GRAMS Medical TWICE A Branch DAY NEEDED FOR PAIN Diclofenac 2018- Yes [id number] APPLY TO Univers Sodium 1 % 11-13 [id number] AFFECTED ity of gel 00:00: AREA 2-4 [place] 00 GRAMS Medical TWICE A Branch DAY NEEDED FOR PAIN Diclofenac 2018- Yes [id number] APPLY TO Univers Sodium 1 % 11-13 [id number] AFFECTED ity of gel 00:00: AREA 2-4 [place] 00 GRAMS Medical TWICE A Branch DAY NEEDED FOR PAIN Diclofenac 2019-0 Yes [id number] APPLY TO Univers Sodium 1 % 11-13 [id number] AFFECTED ity of gel 00:00: AREA 2-4 [place] 00 GRAMS Medical TWICE A Branch DAY NEEDED FOR PAIN Diclofenac 2019-0 Yes [id number] APPLY TO Univers Sodium 1 % 11-13 [id number] AFFECTED ity of gel 00:00: AREA 2-4 [place] 00 GRAMS Medical TWICE A Branch DAY NEEDED FOR PAIN Diclofenac 2019-0 Yes [id number] APPLY TO Univers Sodium 1 % 11-13 [id number] AFFECTED ity of gel 00:00: AREA 2-4 [place] 00 GRAMS Medical TWICE A Branch DAY NEEDED FOR PAIN Diclofenac 2019-0 Yes [id number] APPLY TO Univers Sodium 1 % 11-13 [id number] AFFECTED ity of gel 00:00: AREA 2-4 [place] 00 GRAMS Medical TWICE A Branch DAY NEEDED FOR PAIN Diclofenac 2019-0 Yes [id number] APPLY TO Univers Sodium 1 % 11-13 [id number] AFFECTED ity of gel 00:00: AREA 2-4 [place] 00 GRAMS Medical TWICE A Branch DAY NEEDED FOR PAIN Diclofenac 2019-0 Yes [id number] APPLY TO Univers Sodium 1 % 11-13 [id number] AFFECTED ity of gel 00:00: AREA 2-4 [place] 00 GRAMS Medical TWICE A Branch DAY NEEDED FOR PAIN Diclofenac 2019-0 Yes [id number] APPLY TO Univers Sodium 1 % 11-13 [id number] AFFECTED ity of gel 00:00: AREA 2-4 [place] 00 GRAMS Medical TWICE A Branch DAY NEEDED FOR PAIN Diclofenac 2019-0 Yes [id number] APPLY TO Univers Sodium 1 % 11-13 [id number] AFFECTED ity of gel 00:00: AREA 2-4 [place] 00 GRAMS Medical TWICE A Branch DAY NEEDED FOR PAIN Diclofenac 2019-0 Yes [id number] APPLY TO Univers Sodium 1 % 11-13 [id number] AFFECTED ity of gel 00:00: AREA 2-4 [place] 00 GRAMS Medical TWICE A Branch DAY NEEDED FOR PAIN Diclofenac 2019-0 Yes [id number] APPLY TO Univers Sodium 1 % 11-13 [id number] AFFECTED ity of gel 00:00: AREA 2-4 [place] 00 GRAMS Medical TWICE A Branch DAY NEEDED FOR PAIN Diclofenac 2019-0 Yes [id number] APPLY TO Univers Sodium 1 % 11-13 [id number] AFFECTED ity of gel 00:00: AREA 2-4 [place] 00 GRAMS Medical TWICE A Branch DAY NEEDED FOR PAIN Diclofenac 2019-0 Yes [id number] APPLY TO Univers Sodium 1 % 11-13 [id number] AFFECTED ity of gel 00:00: AREA 2-4 [place] 00 GRAMS Medical TWICE A Branch DAY NEEDED FOR PAIN Diclofenac 2019-0 Yes [id number] APPLY TO Univers Sodium 1 % 11-13 [id number] AFFECTED ity of gel 00:00: AREA 2-4 [place] 00 GRAMS Medical TWICE A Branch DAY NEEDED FOR PAIN Diclofenac 2019-0 Yes [id number] APPLY TO Univers Sodium 1 % 11-13 [id number] AFFECTED ity of gel 00:00: AREA 2-4 [place] 00 GRAMS Medical TWICE A Branch DAY NEEDED FOR PAIN Diclofenac 2019-0 Yes [id number] APPLY TO Univers Sodium 1 % 11-13 [id number] AFFECTED ity of gel 00:00: AREA 2-4 [place] 00 GRAMS Medical TWICE A Branch DAY NEEDED FOR PAIN Diclofenac 2019-0 Yes [id number] APPLY TO Univers Sodium 1 % 11-13 [id number] AFFECTED ity of gel 00:00: AREA 2-4 [place] 00 GRAMS Medical TWICE A Branch DAY NEEDED FOR PAIN Diclofenac 2019-0 Yes [id number] APPLY TO Univers Sodium 1 % 11-13 [id number] AFFECTED ity of gel 00:00: AREA 2-4 [place] 00 GRAMS Medical TWICE A Branch DAY NEEDED FOR PAIN Diclofenac 2019-0 Yes [id number] APPLY TO [facility] Sodium 1 % 11-13 [id number] AFFECTED ity of gel 00:00: AREA 2-4 [place] 00 GRAMS Medical TWICE A Branch DAY NEEDED FOR PAIN Diclofenac Yes [id number] APPLY TO [facility] Sodium 1 % 11-13 [id number] AFFECTED ity of gel 00:00: AREA 2-4 [place] 00 GRAMS Medical TWICE A Branch DAY NEEDED FOR PAIN Diclofenac Yes [id number] APPLY TO [facility] Sodium 1 % 11-13 [id number] AFFECTED ity of gel 00:00: AREA 2-4 [place] 00 GRAMS Medical TWICE A Branch DAY NEEDED FOR PAIN Diclofenac Yes [id number] APPLY TO [facility] Sodium 1 % 11-13 [id number] AFFECTED ity of gel 00:00: AREA 2-4 [place] 00 GRAMS Medical TWICE A Branch DAY NEEDED FOR PAIN pregabalin 2018- Yes [id number] 75mg Take 1 [facility] 75 mg 11-13 [id number] capsule by ity of capsule 00:00: mouth 3 (three) Medical times Branch daily. lisinopril Yes TAKE 1 [facility] 20 mg 2-25 TABLET BY ity of tablet 00:00: MOUTH TWICE A Medical DAY Branch lisinopril Yes TAKE 1 [facility] 20 mg 2-25 TABLET BY ity of tablet 00:00: MOUTH TWICE A Medical DAY Branch lisinopril 2018-0 Yes TAKE 1 [facility] 20 mg 2-25 TABLET BY ity of tablet 00:00: [facility] TWICE A Medical DAY Branch lisinopril 2018- Yes TAKE 1 Unive rs 20 mg 2-25 TABLET BY ity of tablet 00:00: MOUTH TWICE A Medical DAY Branch lisinopril 2018- Yes TAKE 1 Unive rs 20 mg 2-25 TABLET BY ity of tablet 00:00: MOUTH TWICE A Medical DAY Branch lisinopril 2018- Yes TAKE 1 [facility]ive rs 20 mg 2-25 TABLET BY ity of tablet 00:00: MOUTH TWICE A Medical DAY Branch lisinopril 2018- Yes TAKE 1 [facility] rs 20 mg 2-25 TABLET BY ity of tablet 00:00: MOUTH TWICE A Medical DAY Branch lisinopril 2018- Yes TAKE 1 [facility] 20 mg 2-25 TABLET BY ity of tablet 00:00: MOUTH TWICE A Medical DAY Branch lisinopril 2019-0 Yes TAKE 1 [facility] 20 mg 2-25 TABLET BY ity of tablet 00:00: TWICE A Medical DAY Branch lisinopril 2019-0 Yes TAKE 1 [facility] rs 20 mg 2-25 TABLET BY ity of tablet 00:00: TWICE A Medical DAY Branch lisinopril 2019-0 Yes TAKE 1 [facility] 20 mg 2-25 TABLET BY ity of tablet 00:00: TWICE A Medical DAY Branch lisinopril 2019-0 Yes TAKE 1 [facility] 20 mg 2-25 TABLET BY ity of tablet 00:00: TWICE A Medical DAY Branch lisinopril 2019-0 Yes TAKE 1 [facility] 20 mg 2-25 TABLET BY ity of tablet 00:00: TWICE A Medical DAY Branch lisinopril 2019-0 Yes TAKE 1 Un[facility] rs 20 mg 2-25 TABLET BY ity of tablet 00:00: TWICE A Medical DAY Branch lisinopril 2019-0 Yes TAKE 1 Unive rs 20 mg 2-25 TABLET BY ity of tablet 00:00: TWICE A Medical DAY Branch lisinopril 2019-0 Yes TAKE 1 [facility] 20 mg 2-25 TABLET BY ity of tablet 00:00: TWICE A Medical DAY Branch lisinopril 2019-0 Yes TAKE 1 [facility]ive rs 20 mg 2-25 TABLET BY ity of tablet 00:00: TWICE A Medical DAY Branch lisinopril 2019-0 Yes TAKE 1 [facility] rs 20 mg 2-25 TABLET BY ity of tablet 00:00: TWICE A Medical DAY Branch lisinopril 2019-0 Yes TAKE 1 [facility] rs 20 mg 2-25 TABLET BY ity of tablet 00:00: TWICE A Medical DAY Branch lisinopril 2019-0 Yes TAKE 1 [facility] rs 20 mg 2-25 TABLET BY ity of tablet 00:00: TWICE A Medical DAY Branch lisinopril 2019-0 Yes TAKE 1 [facility] 20 mg 2-25 TABLET BY ity of tablet 00:00: TWICE A Medical DAY Branch lisinopril 2019-0 Yes TAKE 1 Unive rs 20 mg 2-25 TABLET BY ity of tablet 00:00: MOUTH [place] 00 TWICE A Medical DAY Branch lisinopril Yes TAKE 1 Unive rs 20 mg 2-25 TABLET BY ity of tablet 00:00: MOUTH [place] 00 TWICE A Medical DAY Branch lisinopril Yes TAKE 1 Unive rs 20 mg 2-25 TABLET BY ity of tablet 00:00: MOUTH [place] 00 TWICE A Medical DAY Branch lisinopril Yes TAKE 1 Unive rs 20 mg 2-25 TABLET BY ity of tablet 00:00: MOUTH [place] 00 TWICE A Medical DAY Branch cholestyram 2017-07 Yes [id number] 4g Take 1 [facility] ine light 2-31 Packet by ity o f (CHOLESTYRA 00:00: mouth 3 [place] MINE LIGHT) 00 (three) Medic al 4 gram times Branch powder daily with meals. cholestyram 2017-07 Yes [id number] 4g Take 1 [facility] ine light 2-31 Packet by ity o f (CHOLESTYRA 00:00: mouth 3 [place] MINE LIGHT) 00 (three) Medic al 4 gram times Branch powder daily with meals. ipratropium 2017-07 2019- No 2{spray Use 2 U nivers 0.03 % [id number] } Sprays in ity of nasal spray 00:00: 00:00 each [place] 00 :00 nostril Medical every 12 Branch (twelve) hours. escitalopra 2017-07 Yes [id number] 10mg Take 1 [facility] oxalate 0-02 tablet by ity o f 10 mg 00:00: mouth [place] tablet 00 daily. [facility] escitalopra 2017-07 Yes [id number] 10mg Take 1 [facility] oxalate 0-02 tablet by ity o f 10 mg 00:00: mouth [place] tablet 00 daily. [facility] Branch cholestyram Yes [facility]IX ONE [facility] (QUESTRAN) 00:[facility]: [facility] 4 gram 00 LIQUID AND l packet TAKE BY MOUTH EVERY DAY. DO NOT TAKE MEDS 1 HOUR PRIOR OR AFTER. cholestyram Yes MIX ONE [facility] (QUESTRAN) 00:00: WITH [facility] 4 gram 00 LIQUID AND l packet TAKE BY MOUTH EVERY DAY. DO NOT TAKE MEDS 1 HOUR PRIOR OR AFTER. cholestyram Yes MIX ONE [facility] (QUESTRAN) 00:00: WITH [facility] 4 gram 00 LIQUID AND l packet TAKE BY MOUTH EVERY DAY. DO NOT TAKE MEDS 1 HOUR PRIOR OR AFTER. cholestyram Yes MIX ONE [facility] (QUESTRAN) 00:00: WITH [facility] 4 gram 00 LIQUID AND l packet TAKE BY MOUTH EVERY DAY. DO NOT TAKE MEDS 1 HOUR PRIOR OR AFTER. cholestyram Yes MIX ONE [facility] (QUESTRAN) 00:00: WITH [facility] 4 gram 00 LIQUID AND l packet TAKE BY MOUTH EVERY DAY. DO NOT TAKE MEDS 1 HOUR PRIOR OR AFTER. cholestyram Yes MIX ONE [facility] (QUESTRAN) 00:00: WITH [facility] 4 gram 00 LIQUID AND l packet TAKE BY MOUTH EVERY DAY. DO NOT TAKE MEDS 1 HOUR PRIOR OR AFTER. cholestyram Yes MIX ONE [facility] (QUESTRAN) 00:00: WITH [facility] 4 gram 00 LIQUID AND l packet TAKE BY MOUTH EVERY DAY. DO NOT TAKE MEDS 1 HOUR PRIOR OR AFTER. cholestyram Yes MIX ONE [facility] (QUESTRAN) 00:00: WITH [facility] 4 gram 00 LIQUID AND l packet TAKE BY MOUTH EVERY DAY. DO NOT TAKE MEDS 1 HOUR PRIOR OR AFTER. diclofenac Yes 2g Apply 2 g [facility] (VOLTAREN) 5-[address] 1 % gel 00:00: as [facility]. [facility] l diclofenac Yes 2g Apply 2 g [facility] (VOLTAREN) 5-[address] 1 % gel 00:00: as [facility]. [facility] l diclofenac Yes 2g Apply 2 g [facility] (VOLTAREN) 5-[address] 1 % gel 00:00: as needed. [facility] 00 l diclofenac 0 Yes 2g Apply 2 g [facility] (VOLTAREN) 5-[address] 1 % gel 00:00: as needed. [facility] l diclofenac Yes 2g Apply 2 g [facility] (VOLTAREN) 5-[address] 1 % gel 00:00: as needed. [facility] 00 l diclofenac Yes 2g Apply 2 g [facility] (VOLTAREN) 5-[address] 1 % gel 00:00: as needed. [facility] 00 l diclofenac Yes 2g Apply 2 g [facility] (VOLTAREN) 5-[address] 1 % gel 00:00: as needed. [facility] 00 l diclofenac 2017-0 Yes 2g Apply 2 g [facility] (VOLTAREN) 5-[address] 1 % gel 00:00: as needed. [facility] 00 l hydroCHLORO Yes TAKE 1 Univ ers thiazide 25 4-24 TABLET BY ity of mg tablet 00:00: MOUTH [place] [id number] EVERY DAY Medical IN THE [place] MORNING hydroCHLORO Yes 12.5mg 12.5 mg. Univers thiazide 25 4-24 ity of mg tablet 00:00: [address] hydroCHLORO Yes 12.5mg 12.5 mg. Univers thiazide 25 4-24 ity of mg tablet 00:00: [address] hydroCHLORO Yes 12.5mg 12.5 mg. Univers thiazide 25 4-24 ity of mg tablet 00:00: [address] hydroCHLORO Yes 12.5mg 12.5 mg. Univers thiazide 25 4-24 ity of mg tablet 00:00: [address] hydroCHLORO Yes 12.5mg 12.5 mg. Univers thiazide 25 4-24 ity of mg tablet 00:00: [address] hydroCHLORO Yes 12.5mg 12.5 mg. Univers thiazide 25 4-24 ity of mg tablet 00:00: [address] hydroCHLORO Yes 12.5mg 12.5 mg. Univers thiazide 25 4-24 ity of mg tablet 00:00: [address] hydroCHLORO Yes 12.5mg 12.5 mg. Univers thiazide 25 4-24 ity of mg tablet 00:00: [address] hydroCHLORO Yes 12.5mg 12.5 mg. Univers thiazide 25 4-24 ity of mg tablet 00:00: [address] hydroCHLORO 0 Yes 12.5mg 12.5 mg. Univers thiazide 25 4-24 ity of mg tablet 00:00: [address] hydroCHLORO Yes 12.5mg 12.5 mg. [facility] thiazide 25 4-24 ity of mg tablet 00:00: [address] hydroCHLORO Yes 12.5mg 12.5 mg. [facility] thiazide 25 4-24 ity of mg tablet 00:00: [address] hydroCHLORO Yes 12.5mg 12.5 mg. Univers thiazide 25 4-24 ity of mg tablet 00:00: [address] hydroCHLORO Yes 12.5mg 12.5 mg. Univers thiazide 25 4-24 ity of mg tablet 00:00: [address] hydroCHLORO Yes 12.5mg 12.5 mg. Univers thiazide 25 4-24 ity of mg tablet 00:00: [address] hydroCHLORO Yes 12.5mg 12.5 mg. Univers thiazide 25 4-24 ity of mg tablet 00:00: [address] hydroCHLORO Yes 12.5mg 12.5 mg. Univers thiazide 25 4-24 ity of mg tablet 00:00: [address] hydroCHLORO Yes 12.5mg 12.5 mg. Univers thiazide 25 4-24 ity of mg tablet 00:00: [address] hydroCHLORO Yes 12.5mg 12.5 mg. Univers thiazide 25 4-24 ity of mg tablet 00:00: [address] hydroCHLORO Yes 12.5mg 12.5 mg. Univers thiazide 25 4-24 ity of mg tablet 00:00: [address] hydroCHLORO Yes 12.5mg 12.5 mg. Univers thiazide 25 4-24 ity of mg tablet 00:00: [address] hydroCHLORO Yes 12.5mg 12.5 mg. Univers thiazide 25 4-24 ity of mg tablet 00:00: [address] hydroCHLORO Yes 12.5mg 12.5 mg. Univers thiazide 25 4-24 ity of mg tablet 00:00: [address] hydroCHLORO Yes TAKE 1 Univ ers thiazide 25 4-24 TABLET BY ity of mg tablet 00:00: MOUTH [place] [id number] EVERY DAY Medical IN THE [place] MORN[place] hydroCHLORO Yes 25mg QD Take 25 mg [facility] thiazide 4-[address] (HYDRODIURI 00:00: daily. [facility]) 25 MG 00 l tablet hydroCHLORO 2018-0 Yes 25mg QD Take 25 mg [facility] thiazide 4-[address] (HYDRODIURI 00:00: daily. [facility]) 25 MG 00 l tablet hydroCHLORO 2018-0 Yes 25mg QD Take 25 mg [facility] thiazide 4-[address] (HYDRODIURI 00:00: daily. [facility]) 25 MG 00 l tablet hydroCHLORO 2018-0 Yes 25mg QD Take 25 mg [facility] thiazide 4-[address] (HYDRODIURI 00:00: daily. [facility]) 25 MG 00 l tablet hydroCHLORO 2018-0 Yes 25mg QD Take 25 mg [facility] thiazide 4-[address] (HYDRODIURI 00:00: daily. [facility]) 25 MG 00 l tablet hydroCHLORO 2018-0 Yes 25mg QD Take 25 mg [facility] thiazide 4-[address] (HYDRODIURI 00:00: daily. [facility]) 25 MG 00 l tablet hydroCHLORO 2018-0 Yes 25mg QD Take 25 mg [facility] thiazide 4-[address] (HYDRODIURI 00:00: daily. [facility]) 25 MG 00 l tablet hydroCHLORO 2018-0 Yes 25mg QD Take 25 mg [facility] thiazide 4-[address] (HYDRODIURI 00:00: daily. [facility]) 25 MG 00 l tablet zolpidem 2016-07 Yes 5mg Take 5 mg [facility] (AMBIEN) 5 0-[address] [facility] tablet 00:00: as needed. [facility] l zolpidem 2016-07 Yes 5mg Take 5 mg [facility] (AMBIEN) 5 0-[address] MG tablet 00:00: as needed. [facility] 00 l zolpidem 2016-07 Yes 5mg Take 5 mg [facility] (AMBIEN) 5 0-[address] MG tablet 00:00: as needed. [facility] zolpidem 2016-07 Yes 5mg Take 5 mg [facility] (AMBIEN) 5 0-[address] MG tablet 00:00: as needed. [facility] zolpidem 2016-07 Yes 5mg Take 5 mg [facility] (AMBIEN) 5 0-[address] MG tablet 00:00: as needed. [facility] 00 l zolpidem 2016-07 Yes 5mg Take 5 mg [facility] (AMBIEN) 5 0-[address] MG tablet 00:00: as needed. [facility] zolpidem 2016-07 Yes 5mg Take 5 mg [facility] (AMBIEN) 5 0-[address] MG tablet 00:00: as needed. [facility] zolpidem 2016-07 Yes 5mg Take 5 mg [facility] (AMBIEN) 5 0-[address] MG tablet 00:00: as needed. [facility] 00 l escitalopra Yes 10mg QD Take 10 mg [facility] (LEXAPRO) 9-[address] 10 MG 00:00: daily. [facility]osp[facility] tablet 00 l escitalopra Yes 10mg QD Take 10 mg [facility] (LEXAPRO) 9-[address] 10 MG 00:00: daily. [facility]ospita tablet 00 l escitalopra Yes 10mg QD Take 10 mg [facility] (LEXAPRO) 9-[address] 10 MG 00:00: daily. [facility]ospita tablet 00 l escitalopra Yes 10mg QD Take 10 mg [facility] (LEXAPRO) 9-[address] 10 MG 00:00: daily. [facility]ospita tablet 00 l escitalopra Yes 10mg QD Take 10 mg [facility] (LEXAPRO) 9-[address] 10 MG 00:00: daily. [facility]ospita tablet 00 l escitalopra Yes 10mg QD Take 10 mg [facility] (LEXAPRO) 9-[address] 10 MG 00:00: daily. [facility]ospita tablet 00 l escitalopra 2016 Yes 10mg QD Take 10 mg [facility] (LEXAPRO) 9-[address] 10 MG 00:00: daily. Hospita tablet 00 l escitalopra [id number] Yes 10mg QD Take 10 mg [facility] (LEXAPRO) 9-[address] 10 MG 00:00: daily. Hospita tablet 00 l Immunizations Ordered Filled Immunization Date Status Comments [facility] e Immunization Name Name Ticket M[facility] COVID-19 2020-08-03 Completed [facility] VACC[facility] 00:00:00 [facility] PFIZER COVID-19 2020-08-03 Completed [facility] VACC[facility] 00:00:00 [facility] PFIZER COVID-19 2020-08-03 Completed [facility] VACCIN[facility] 00:00:00 [facility] PFIZER COVID-19 2020-08-03 Completed [facility] VACC[facility] 00:00:00 [facility] PFIZER COVID-19 2020-08-03 Completed [facility] VACCIN[facility] 00:00:00 [facility] PFIZER COVID-19 2020-08-03 Completed [facility] VACCINATION 00:00:00 [facility] PFIZER COVID-19 2020-08-03 Completed [facility] VACCINATION 00:00:00 [facility] PFIZER COVID-19 2020-08-03 Completed [facility] VACCINATION 00:00:00 [facility] PFIZER COVID-19 2020-07-13 Completed [facility] VACCINATION 00:00:00 [facility] PFIZER COVID-19 2020-07-13 Completed [facility] VACCINATION 00:00:00 [facility] PFIZER COVID-19 2020-07-13 Completed [facility] VACCINATION 00:00:00 [facility] PFIZER COVID-19 2020-07-13 Completed [facility] VACCINATION 00:00:00 [facility] PFIZER COVID-19 2020-07-13 Completed [facility] VACCINATION 00:00:00 [facility] PFIZER COVID-19 2020-07-13 Completed [facility] VACCINATION 00:00:00 [facility] PFIZER COVID-19 2020-07-13 Completed [facility] VACCINATION 00:00:00 [facility] PFIZER COVID-19 2020-07-13 Completed [facility] VACCINATION 00:00:00 [facility] Pneumococcal 2019-05-05 Completed University o f Polysaccharide, 00:00:00 [place] [facility] PPSV23 (PNEUMOVAX) Branch Pneumococcal 2019-05-05 Completed University o f Polysaccharide, 00:00:00 [place] [facility] PPSV23 (PNEUMOVAX) Branch Pneumococcal 2019-05-05 Completed University o f Polysaccharide, 00:00:00 [place] [facility] PPSV23 (PNEUMOVAX) Branch Pneumococcal 2019-05-05 Completed University o f Polysaccharide, 00:00:00 [place] [facility] PPSV23 (PNEUMOVAX) Branch Pneumococcal 2019-05-05 Completed University o f Polysaccharide, 00:00:00 [place] [facility] PPSV23 (PNEUMOVAX) Branch Pneumococcal 2019-05-05 Completed University o f Polysaccharide, 00:00:00 [place] [facility] PPSV23 (PNEUMOVAX) Branch Pneumococcal 2019-05-05 Completed University o f Polysaccharide, 00:00:00 [place] [facility] PPSV23 (PNEUMOVAX) Branch Pneumococcal 2019-05-05 Completed University o f Polysaccharide, 00:00:00 [place] [facility] PPSV23 (PNEUMOVAX) Branch Pneumococcal 2019-05-05 Completed University o f Polysaccharide, 00:00:00 [place] [facility] PPSV23 (PNEUMOVAX) Branch Pneumococcal 2019-05-05 Completed University o f Polysaccharide, 00:00:00 [place] [facility] PPSV23 (PNEUMOVAX) Branch Pneumococcal 2019-05-05 Completed University o f Polysaccharide, 00:00:00 [place] [facility] PPSV23 (PNEUMOVAX) Branch Pneumococcal 2019-05-05 Completed University o f Polysaccharide, 00:00:00 [place] [facility] PPSV23 (PNEUMOVAX) Branch Pneumococcal 2019-05-05 Completed University o f Polysaccharide, 00:00:00 [place] [facility] PPSV23 (PNEUMOVAX) Branch Pneumococcal 2019-05-05 Completed University o f Polysaccharide, 00:00:00 [place] [facility] PPSV23 (PNEUMOVAX) Branch Pneumococcal 2019-05-05 Completed University o f Polysaccharide, 00:00:00 [place] [facility] PPSV23 (PNEUMOVAX) Branch Pneumococcal 2019-05-05 Completed University o f Polysaccharide, 00:00:00 [place] [facility] PPSV23 (PNEUMOVAX) Branch Pneumococcal 2019-05-05 Completed University o f Polysaccharide, 00:00:00 [place] [facility] PPSV23 (PNEUMOVAX) Branch Pneumococcal 2019-05-05 Completed University o f Polysaccharide, 00:00:00 [place] [facility] PPSV23 (PNEUMOVAX) Branch Pneumococcal 2019-05-05 Completed University o f Polysaccharide, 00:00:00 [place] [facility] PPSV23 (PNEUMOVAX) Branch Pneumococcal 2019-05-05 Completed University o f Polysaccharide, 00:00:00 [place] [facility] PPSV23 (PNEUMOVAX) Branch Pneumococcal 2019-05-05 Completed University o f Polysaccharide, 00:00:00 [place] [facility] PPSV23 (PNEUMOVAX) Branch Pneumococcal 2019-05-05 Completed University o f Polysaccharide, 00:00:00 [place] [facility] PPSV23 (PNEUMOVAX) Branch Pneumococcal 2019-05-05 Completed University o f Polysaccharide, 00:00:00 [facility] PPSV23 (PNEUMOVAX) Branch Influenza High Dose 2019-04-23 Completed Unive rsity of 00:00:00 [facility] Influenza High Dose 2019-04-23 Completed Unive rsity of 00:00:00 [facility] Influenza High Dose 2019-04-23 Completed Unive rsity of 00:00:00 [facility] Influenza High Dose 2019-04-23 Completed Unive rsity of 00:00:00 [facility] Influenza High Dose 2019-04-23 Completed Unive rsity of 00:00:00 [facility] Influenza High Dose 2019-04-23 Completed Unive rsity of 00:00:00 [facility] Influenza High Dose 2019-04-23 Completed Unive rsity of 00:00:00 [facility] Influenza High Dose 2019-04-23 Completed Unive rsity of 00:00:00 [facility] Influenza High Dose 2019-04-23 Completed Unive rsity of 00:00:00 [facility] Influenza High Dose 2019-04-23 Completed Unive rsity of 00:00:00 [facility] Influenza High Dose 2019-04-23 Completed Unive rsity of 00:00:00 [facility] Influenza High Dose 2019-04-23 Completed Unive rsity of 00:00:00 [facility] Influenza High Dose 2019-04-23 Completed Unive rsity of 00:00:00 [facility] Influenza High Dose 2019-04-23 Completed Unive rsity of 00:00:00 [facility] Influenza High Dose 2019-04-23 Completed Unive rsity of 00:00:00 [facility] Influenza High Dose 2019-04-23 Completed Unive rsity of 00:00:00 [facility] Influenza High Dose 2019-04-23 Completed Unive rsity of 00:00:00 [facility] Influenza High Dose 2019-04-23 Completed Unive rsity of 00:00:00 [facility] Influenza High Dose 2019-04-23 Completed Unive rsity of 00:00:00 [facility] Influenza High Dose 2019-04-23 Completed Unive rsity of 00:00:00 [facility] Influenza High Dose 2019-04-23 Completed Unive rsity of 00:00:00 [facility] Influenza High Dose 2019-04-23 Completed Unive rsity of 00:00:00 [facility] Influenza High Dose 2019-04-23 Completed Unive rsity of 00:00:00 [facility] Influenza High Dose 2018-05-20 Completed Unive rsity of 00:00:00 [facility] Influenza High Dose 2018-05-20 Completed Unive rsity of 00:00:00 [facility] Influenza High Dose 2018-04-27 Completed Unive rsity of 00:00:00 [facility] Influenza High Dose 2018-04-27 Completed Unive rsity of 00:00:00 [facility] Influenza High Dose 2018-04-27 Completed Unive rsity of 00:00:00 [facility] Influenza High Dose 2018-04-27 Completed Unive rsity of 00:00:00 [facility] Influenza High Dose 2018-04-27 Completed Unive rsity of 00:00:00 [facility] Influenza High Dose 2018-04-27 Completed Unive rsity of 00:00:00 [facility] Influenza High Dose 2018-04-27 Completed Unive rsity of 00:00:00 [facility] Influenza High Dose 2018-04-27 Completed Unive rsity of 00:00:00 [facility] Influenza High Dose 2018-04-27 Completed Unive rsity of 00:00:00 [facility] Influenza High Dose 2018-04-27 Completed Unive rsity of 00:00:00 [facility] Influenza High Dose 2018-04-27 Completed Unive rsity of 00:00:00 [facility] Influenza High Dose 2018-04-27 Completed Unive rsity of 00:00:00 [facility] Influenza High Dose 2018-04-27 Completed Unive rsity of 00:00:00 [facility] Influenza High Dose 2018-04-27 Completed Unive rsity of 00:00:00 [facility] Influenza High Dose 2018-04-27 Completed Unive rsity of 00:00:00 [facility] Influenza High Dose 2018-04-27 Completed Unive rsity of 00:00:00 [facility] Influenza High Dose 2018-04-27 Completed Unive rsity of 00:00:00 [facility] Influenza High Dose 2018-04-27 Completed Unive rsity of 00:00:00 [facility] Influenza High Dose 2018-04-27 Completed Unive rsity of 00:00:00 [facility] Influenza High Dose 2018-04-27 Completed Unive rsity of 00:00:00 [facility] Influenza High Dose 2018-04-27 Completed Unive rsity of 00:00:00 [facility] Influenza High Dose 2018-04-27 Completed Unive rsity of 00:00:00 [facility] Influenza High Dose 2018-04-27 Completed Unive rsity of 00:00:00 [facility] Pneumococcal 13 2018-03-31 Completed Universit y of Conjugate, PCV13 00:00:00 [place] [facility] (Prevnar 13) Branch Pneumococcal 13 2018-03-31 Completed Universit y of Conjugate, PCV13 00:00:00 [place] [facility] (Prevnar 13) Branch Pneumococcal 13 2018-03-31 Completed Universit y of Conjugate, PCV13 00:00:00 [place] [facility] (Prevnar 13) Branch Pneumococcal 13 2018-03-31 Completed Universit y of Conjugate, PCV13 00:00:00 [place] [facility] (Prevnar 13) Branch Pneumococcal 13 2018-03-31 Completed Universit y of Conjugate, PCV13 00:00:00 [place] [facility] (Prevnar 13) Branch Pneumococcal 13 2018-03-31 Completed Universit y of Conjugate, PCV13 00:00:00 [place] [facility] (Prevnar 13) Branch Pneumococcal 13 2018-03-31 Completed Universit y of Conjugate, PCV13 00:00:00 [place] [facility] (Prevnar 13) Branch Pneumococcal 13 2018-03-31 Completed Universit y of Conjugate, PCV13 00:00:00 [place] [facility] (Prevnar 13) Branch Pneumococcal 13 2018-03-31 Completed Universit y of Conjugate, PCV13 00:00:00 [place] [facility] (Prevnar 13) Branch Pneumococcal 13 2018-03-31 Completed Universit y of Conjugate, PCV13 00:00:00 [place] [facility] (Prevnar 13) Branch Pneumococcal 13 2018-03-31 Completed Universit y of Conjugate, PCV13 00:00:00 [place] [facility] (Prevnar 13) Branch Pneumococcal 13 2018-03-31 Completed Universit y of Conjugate, PCV13 00:00:00 [place] [facility] (Prevnar 13) Branch Pneumococcal 13 2018-03-31 Completed Universit y of Conjugate, PCV13 00:00:00 [place] [facility] (Prevnar 13) Branch Pneumococcal 13 2018-03-31 Completed Universit y of Conjugate, PCV13 00:00:00 [place] [facility] (Prevnar 13) Branch Pneumococcal 13 2018-03-31 Completed Universit y of Conjugate, PCV13 00:00:00 [place] [facility] (Prevnar 13) Branch Pneumococcal 13 2018-03-31 Completed Universit y of Conjugate, PCV13 00:00:00 [place] [facility] (Prevnar 13) Branch Pneumococcal 13 2018-03-31 Completed Universit y of Conjugate, PCV13 00:00:00 [place] [facility] (Prevnar 13) Branch Pneumococcal 13 2018-03-31 Completed Universit y of Conjugate, PCV13 00:00:00 [place] [facility] (Prevnar 13) Branch Pneumococcal 13 2018-03-31 Completed Universit y of Conjugate, PCV13 00:00:00 [place] [facility] (Prevnar 13) Branch Pneumococcal 13 2018-03-31 Completed Universit y of Conjugate, PCV13 00:00:00 [place] [facility] (Prevnar 13) Branch Pneumococcal 13 2018-03-31 Completed Universit y of Conjugate, PCV13 00:00:00 [place] [facility] (Prevnar 13) Branch Pneumococcal 13 2018-03-31 Completed Universit y of Conjugate, PCV13 00:00:00 [place] [facility] (Prevnar 13) Branch Pneumococcal 13 2018-03-31 Completed Universit y of Conjugate, PCV13 00:00:00 [place] [facility] (Prevnar 13) Branch Pneumococcal 13 2018-03-31 Completed Universit y of Conjugate, PCV13 00:00:00 [place] [facility] (Prevnar 13) Branch Pneumococcal 13 2018-03-31 Completed Universit y of Conjugate, PCV13 00:00:00 [place] [facility] (Prevnar 13) Branch Influenza High Dose 2017-04-14 Completed Unive rsity of 00:00:00 [facility] Influenza High Dose 2017-04-14 Completed Unive rsity of 00:00:00 [facility] Influenza High Dose 2017-04-14 Completed Unive rsity of 00:00:00 [facility] Influenza High Dose 2017-04-14 Completed Unive rsity of 00:00:00 [facility] Influenza High Dose 2017-04-14 Completed Unive rsity of 00:00:00 [facility] Influenza High Dose 2017-04-14 Completed Unive rsity of 00:00:00 [facility] Influenza High Dose 2017-04-14 Completed Unive rsity of 00:00:00 [place] [facility] Influenza High Dose 2017-04-14 Completed Unive rsity of 00:00:00 [place] [facility] Influenza High Dose 2017-04-14 Completed Unive rsity of 00:00:00 [facility] Influenza High Dose 2017-04-14 Completed Unive rsity of 00:00:00 [facility] Influenza High Dose 2017-04-14 Completed Unive rsity of 00:00:00 [facility] Influenza High Dose 2017-04-14 Completed Unive rsity of 00:00:00 [place] [facility] Influenza High Dose 2017-04-14 Completed Unive rsity of 00:00:00 [facility] Influenza High Dose 2017-04-14 Completed Unive rsity of 00:00:00 [facility] Influenza High Dose 2017-04-14 Completed Unive rsity of 00:00:00 [facility] Influenza High Dose 2017-04-14 Completed Unive rsity of 00:00:00 [facility] Influenza High Dose 2017-04-14 Completed Unive rsity of 00:00:00 [facility] Influenza High Dose 2017-04-14 Completed Unive rsity of 00:00:00 [facility] Influenza High Dose 2017-04-14 Completed Unive rsity of 00:00:00 [facility] Influenza High Dose 2017-04-14 Completed Unive rsity of 00:00:00 [facility] Influenza High Dose 2017-04-14 Completed Unive rsity of 00:00:00 [facility] Influenza High Dose 2017-04-14 Completed Unive rsity of 00:00:00 [facility] Influenza High Dose 2017-04-14 Completed Unive rsity of 00:00:00 [facility] Influenza High Dose 2017-04-14 Completed Unive rsity of 00:00:00 [facility] Influenza High Dose 2017-04-14 Completed Unive rsity of 00:00:00 [facility] Influenza High Dose 2017-04-11 Completed Unive rsity of 00:00:00 [facility] Influenza High Dose 2017-04-11 Completed Unive rsity of 00:00:00 [facility] Influenza High Dose 2017-04-11 Completed Unive rsity of 00:00:00 [facility] Influenza High Dose 2017-04-11 Completed Unive rsity of 00:00:00 [place] [facility] Influenza High Dose 2017-04-11 Completed Unive rsity of 00:00:00 [facility] Influenza High Dose 2017-04-11 Completed Unive rsity of 00:00:00 [facility] [place] [facility] Influenza High Dose 2017-04-11 Completed Unive rsity of 00:00:00 [facility] Influenza High Dose 2017-04-11 Completed Unive rsity of 00:00:00 [facility] Influenza High Dose 2017-04-11 Completed Unive rsity of 00:00:00 [facility] Influenza High Dose 2017-04-11 Completed Unive rsity of 00:00:00 [facility] Influenza High Dose 2017-04-11 Completed Unive rsity of 00:00:00 [facility] Influenza High Dose 2017-04-11 Completed Unive rsity of 00:00:00 [facility] Influenza High Dose 2017-04-11 Completed Unive rsity of 00:00:00 [facility] Influenza High Dose 2017-04-11 Completed Unive rsity of 00:00:00 [facility] Influenza High Dose 2017-04-11 Completed Unive rsity of 00:00:00 [facility] Influenza High Dose 2017-04-11 Completed Unive rsity of 00:00:00 [facility] Influenza High Dose 2017-04-11 Completed Unive rsity of 00:00:00 [facility] Influenza High Dose 2017-04-11 Completed Unive rsity of 00:00:00 [facility] Influenza High Dose 2017-04-11 Completed Unive rsity of 00:00:00 [facility] Influenza High Dose 2017-04-11 Completed Unive rsity of 00:00:00 [facility] Influenza High Dose 2017-04-11 Completed Unive rsity of 00:00:00 [facility] Influenza High Dose 2017-04-11 Completed Unive rsity of 00:00:00 [facility] Influenza High Dose 2017-04-11 Completed Unive rsity of 00:00:00 [facility] Influenza High Dose 2017-04-11 Completed Unive rsity of 00:00:00 [facility] Influenza High Dose 2017-04-11 Completed Unive rsity of 00:00:00 [facility] Tdap 2016-04-25 Completed University of 00:00:00 [facility] Tdap 2016-04-25 Completed University of 00:00:00 [facility] Tdap 2016-04-25 Completed University of 00:00:00 [facility] Tdap 2016-04-25 Completed University of 00:00:00 [facility] Tdap 2016-04-25 Completed University of 00:00:00 [facility] Tdap 2016-04-25 Completed University of 00:00:00 [facility] Tdap 2016-04-25 Completed University of 00:00:00 [facility] Tdap 2016-04-25 Completed University of 00:00:00 [facility] Tdap 2016-04-25 Completed University of 00:00:00 [facility] Tdap 2016-04-25 Completed University of 00:00:00 [facility] Tdap 2016-04-25 Completed University of 00:00:00 [facility] Tdap 2016-04-25 Completed University of 00:00:00 [facility] Tdap 2016-04-25 Completed University of 00:00:00 [facility] TDAP 2016-04-25 Completed University of 00:00:00 [facility] TDAP 2016-04-25 Completed University of 00:00:00 [facility] TDAP 2016-04-25 Completed University of 00:00:00 [facility] TDAP 2016-04-25 Completed University of 00:00:00 [facility] TDAP 2016-04-25 Completed University of 00:00:00 [facility] TDAP 2016-04-25 Completed University of 00:00:00 [facility] TDAP 2016-04-25 Completed University of 00:00:00 [facility] TDAP 2016-04-25 Completed University of 00:00:00 [facility] TDAP 2016-04-25 Completed University of 00:00:00 [facility] TDAP 2016-04-25 Completed University of 00:00:00 [facility] TDAP 2016-04-25 Completed University of 00:00:00 [facility] TDAP 2016-04-25 Completed University of 00:00:00 [facility] Influenza High Dose 2016-04-16 Completed Unive rsity of 00:00:00 [facility] Influenza High Dose 2016-04-16 Completed Unive rsity of 00:00:00 [facility] Influenza High Dose 2016-04-16 Completed Unive rsity of 00:00:00 [facility] Influenza High Dose 2016-04-16 Completed Unive rsity of 00:00:00 [facility] Influenza High Dose 2016-04-16 Completed Unive rsity of 00:00:00 [facility] Influenza High Dose 2016-04-16 Completed Unive rsity of 00:00:00 [facility] Influenza High Dose 2016-04-16 Completed Unive rsity of 00:00:00 [facility] Influenza High Dose 2016-04-16 Completed Unive rsity of 00:00:00 [facility] Influenza High Dose 2016-04-16 Completed Unive rsity of 00:00:00 [facility] Influenza High Dose 2016-04-16 Completed Unive rsity of 00:00:00 [facility] Influenza High Dose 2016-04-16 Completed Unive rsity of 00:00:00 [facility] Influenza High Dose 2016-04-16 Completed Unive rsity of 00:00:00 [facility] Influenza High Dose 2016-04-16 Completed Unive rsity of 00:00:00 [facility] Influenza High Dose 2016-04-16 Completed Unive rsity of 00:00:00 [facility] Influenza High Dose 2016-04-16 Completed Unive rsity of 00:00:00 [facility] Influenza High Dose 2016-04-16 Completed Unive rsity of 00:00:00 [facility] Influenza High Dose 2016-04-16 Completed Unive rsity of 00:00:00 [facility] Influenza High Dose 2016-04-16 Completed Unive rsity of 00:00:00 [facility] Influenza High Dose 2016-04-16 Completed Unive rsity of 00:00:00 [facility] Influenza High Dose 2016-04-16 Completed Unive rsity of 00:00:00 [facility] Influenza High Dose 2016-04-16 Completed Unive rsity of 00:00:00 [facility] Influenza High Dose 2016-04-16 Completed Unive rsity of 00:00:00 [facility] Influenza High Dose 2016-04-16 Completed Unive rsity of 00:00:00 [facility] Influenza High Dose 2016-04-16 Completed Unive rsity of 00:00:00 [facility] Influenza High Dose 2016-04-16 Completed Unive rsity of 00:00:00 [facility] Pneumococcal 2013-06-14 Completed University o f Polysaccharide, 00:00:00 [facility] PPSV23 (PNEUMOVAX) Branch Pneumococcal 2013-06-14 Completed University o f Polysaccharide, 00:00:00 [place] [facility] PPSV23 (PNEUMOVAX) Branch Pneumococcal 2013-06-14 Completed University o f Polysaccharide, 00:00:00 [place] [facility] PPSV23 (PNEUMOVAX) Branch Pneumococcal 2013-06-14 Completed University o f Polysaccharide, 00:00:00 [place] [facility] PPSV23 (PNEUMOVAX) Branch Pneumococcal 2013-06-14 Completed University o f Polysaccharide, 00:00:00 [place] [facility] PPSV23 (PNEUMOVAX) Branch Pneumococcal 2013-06-14 Completed University o f Polysaccharide, 00:00:00 [place] [facility] PPSV23 (PNEUMOVAX) Branch Pneumococcal 2013-06-14 Completed University o f Polysaccharide, 00:00:00 [place] [facility] PPSV23 (PNEUMOVAX) Branch Pneumococcal 2013-06-14 Completed University o f Polysaccharide, 00:00:00 [place] [facility] PPSV23 (PNEUMOVAX) Branch Pneumococcal 2013-06-14 Completed University o f Polysaccharide, 00:00:00 [place] [facility] PPSV23 (PNEUMOVAX) Branch Pneumococcal 2013-06-14 Completed University o f Polysaccharide, 00:00:00 [place] [facility] PPSV23 (PNEUMOVAX) Branch Pneumococcal 2013-06-14 Completed University o f Polysaccharide, 00:00:00 [place] [facility] PPSV23 (PNEUMOVAX) Branch Pneumococcal 2013-06-14 Completed University o f Polysaccharide, 00:00:00 [place] [facility] PPSV23 (PNEUMOVAX) Branch Pneumococcal 2013-06-14 Completed University o f Polysaccharide, 00:00:00 [place] [facility] PPSV23 (PNEUMOVAX) Branch Pneumococcal 2013-06-14 Completed University o f Polysaccharide, 00:00:00 [place] [facility] PPSV23 (PNEUMOVAX) Branch Pneumococcal 2013-06-14 Completed University o f Polysaccharide, 00:00:00 [place] [facility] PPSV23 (PNEUMOVAX) Branch Pneumococcal 2013-06-14 Completed University o f Polysaccharide, 00:00:00 [place] [facility] PPSV23 (PNEUMOVAX) Branch Pneumococcal 2013-06-14 Completed University o f Polysaccharide, 00:00:00 [place] [facility] PPSV23 (PNEUMOVAX) Branch Pneumococcal 2013-06-14 Completed University o f Polysaccharide, 00:00:00 [place] [facility] PPSV23 (PNEUMOVAX) Branch Pneumococcal 2013-06-14 Completed University o f Polysaccharide, 00:00:00 [place] [facility] PPSV23 (PNEUMOVAX) Branch Pneumococcal 2013-06-14 Completed University o f Polysaccharide, 00:00:00 [place] [facility] PPSV23 (PNEUMOVAX) Branch Pneumococcal 2013-06-14 Completed University o f Polysaccharide, 00:00:00 [place] [facility] PPSV23 (PNEUMOVAX) Branch Pneumococcal 2013-06-14 Completed University o f Polysaccharide, 00:00:00 [place] [facility] PPSV23 (PNEUMOVAX) Branch Pneumococcal 2013-06-14 Completed University o f Polysaccharide, 00:00:00 [place] [facility] PPSV23 (PNEUMOVAX) Branch Pneumococcal 2013-06-14 Completed University o f Polysaccharide, 00:00:00 [place] [facility] PPSV23 (PNEUMOVAX) Branch Pneumococcal 2013-06-14 Completed University o f Polysaccharide, 00:00:00 [place] [facility] PPSV23 (PNEUMOVAX) Branch Vital Signs Vital Name Observation Time Observation Value Comments Source Systolic blood 2021-03-10 16:03:00 122 mm[Hg] [facility] Diastolic blood 2021-03-10 16:03:00 64 mm[Hg[facility] Heart rate 2021-03-10 16:03:00 84 /min [facility] Body temperature 2021-03-10 16:03:00 36.78 Tere [facility] Respiratory rate 2021-03-10 16:03:00 12 /min [facility] Oxygen saturation in 2021-03-10 16:03:00 94 /min [facility] Arterial blood by [facility] Pulse oximetry [facility] Body height 2021-03-10 15:00:00 170.2 cm [facility] Body weight 2021-03-10 15:00:00 86.183 kg [facility] BMI 2021-03-10 15:00:00 29.76 kg/m2 [facility] Body height 2021-12-08 15:12:00 167.6 cm [facility] Body weight 2021-12-08 15:12:00 88.905 kg [facility] BMI 2021-12-08 15:12:00 31.64 kg/m2 [facility] Systolic blood 2021-11-29 16:31:00 143 mm[Hg] [facility] Diastolic blood 2021-11-29 16:31:00 62 mm[Hg] [facility] pressure Heart rate 2021-11-29 16:31:00 64 /min [facility] Systolic blood 2021-07-26 17:45:00 145 mm[Hg] [facility] pressure Diastolic blood 2021-07-26 17:45:00 78 mm[Hg] [facility] pressure Heart rate 2021-07-26 17:45:00 84 /min [facility] Body weight 2021-07-26 17:45:00 90.719 kg [facility] BMI 2021-07-26 17:45:00 32.28 kg/m2 [facility] Body height 2021-03-29 18:52:00 167.6 cm [facility] Body height 2020-12-02 15:43:00 167.6 cm [facility] Body weight 2020-12-02 15:43:00 87.091 kg [facility] BMI 2020-12-02 15:43:00 30.99 kg/m2 [facility] Systolic blood 2020-11-23 16:45:00 119 mm[Hg] [facility] pressure Diastolic blood 2020-11-23 16:45:00 80 [facility] Heart rate 2020-11-23 16:45:00 84 /min [facility] Body temperature 2020-07-27 20:33:00 36.61 Tere [facility] Respiratory rate 2020-07-27 20:33:00 17 /min [facility] Oxygen saturation in 2020-07-27 20:33:00 96 /min [facility] Arterial blood by Pulse oximetry Procedures Procedure Date / Time Performing Clinician Source Performed CT CHEST W CONTRAST 2021-12-08 15:[facility] ABDOMEN W WO CONTRAST PELVIS W CONTRAST CANCER ANTIGEN 125 2021-11-29 17:56:00 Wild Presley [facility] CANCER ANTIGEN 125 2021-07-26 18:03:00 Neli Vasquez [facility] CANCER ANTIGEN 125 2021-03-29 19:48:00 [facility] 2021-03-10 05:01:00 Doctor Unassigned, No [facility] 2020-12-02 [facility] PELVIS W CONTRAST CANCER ANTIGEN 125 2020-11-23 17:30:00 [facility] CANCER ANTIGEN 125 2020-07-27 19:22:00 [facility] AUTHORIZATION FOR 2020-07-19 06:01:00 Doctor Unassigned, No [facility] RELEASE OF PHI Name Medical Branch REFERRAL- 2020-04-28 05:01:00 Doctor Unassigned, No [facility] REQUEST/RESPONSE [facility] CT CHEST W CONTRAST 2020-04-26 16:15:44 Sakina, [facility] ABDOMEN W CONTRAST PELVIS W CONTRAST POC CREATININE 2020-04-26 14:35:00 Sakina [facility] Ho spital ESTIMATED GFR 2020-04-26 14:35:00 Sakina [facility] Ho spital CANCER ANTIGEN 125 2020-04-20 16:55:00 [facility] REFERRAL- 2019-10-27 05:01:00 Doctor Unassigned, No [facility] REQUEST/RESPONSE [facility] ASSIGNMENT OF BENEFITS 2019-09-17 15:02:16 Doctor Unassigned, No [facility] Plan of Care Planned Activity Planned Date Details Comments Source Future Scheduled 2022-12-20 SHINGLES VACCINES Method [facility] Test 15:44:15 (1 of 2) [code = SHINGLES VACCINES (1 of 2)] Future Scheduled 2022-12-20 COVID-19 VACCINE (4 [facility] 15:44:15 - Booster for Pfizer series) [code = COVID-19 VACCINE (4 - Booster for Pfizer series)] Future Scheduled 2022-12-20 INFLUENZA VACCINE Method [facility] Test 15:44:15 [code = INFLUENZA VACCINE] Future Scheduled 2022-07-23 SHINGLES VACCINES Method [facility] Test 15:52:50 (1 of 2) [code = SHINGLES VACCINES (1 of 2)] Future Scheduled 2022-07-23 COVID-19 VACCINE (4 Meth odist Hospital Test 15:52:50 - Booster for Pfizer series) [code = COVID-19 VACCINE (4 - Booster for Pfizer series)] Future Scheduled 2022-07-23 INFLUENZA VACCINE Method [facility] Test 15:52:50 [code = INFLUENZA VACCINE] Future Scheduled 2022-06-21 SHINGLES VACCINES [facility] Test 19:12:52 (1 of 2) [code = SHINGLES VACCINES (1 of 2)] Future Scheduled 2022-06-21 COVID-19 VACCINE (4 [facility] Hospital Test 19:12:52 - Booster for Pfizer series) [code = COVID-19 VACCINE (4 - Booster for Pfizer series)] Future Scheduled 2022-06-21 INFLUENZA VACCINE [facility] Test 19:12:52 [code = INFLUENZA VACCINE] Future Scheduled 2022-06-21 SHINGLES VACCINES [facility] Test 19:12:52 (1 of 2) [code = SHINGLES VACCINES (1 of 2)] Future Scheduled 2022-06-21 COVID-19 VACCINE (4 [facility] Hospital Test 19:12:52 - Booster for Pfizer series) [code = COVID-19 VACCINE (4 - Booster for Pfizer series)] Future Scheduled 2022-06-21 INFLUENZA VACCINE [facility] Test 19:12:52 [code = INFLUENZA VACCINE] Future Scheduled 2022-06-21 SHINGLES VACCINES [facility] Test 19:12:52 (1 of 2) [code = SHINGLES VACCINES (1 of 2)] Future Scheduled 2022-06-21 COVID-19 VACCINE (4 [facility] Test 19:12:52 - Booster for Pfizer series) [code = COVID-19 VACCINE (4 - Booster for Pfizer series)] Future Scheduled 2022-06-21 INFLUENZA VACCINE [facility] Test 19:12:52 [code = INFLUENZA VACCINE] Future Scheduled 2022-06-21 SHINGLES VACCINES [facility] Test 19:12:52 (1 of 2) [code = SHINGLES VACCINES (1 of 2)] Future Scheduled 2022-06-21 COVID-19 VACCINE (4 [facility] Test 19:12:52 - Booster for Pfizer series) [code = COVID-19 VACCINE (4 - Booster for Pfizer series)] Future Scheduled 2022-06-21 INFLUENZA VACCINE [facility] Test 19:12:52 [code = INFLUENZA VACCINE] Future Scheduled 2021-08-02 [facility] 11:35:11 screening (procedure) [code = 701622721] Future Scheduled 2021-08-02 SHINGLES VACCINES [facility] Test 11:35:11 (#1) [code = SHINGLES VACCINES (#1)] Future Scheduled 2021-08-02 COVID-19 VACCINE (3 [facility] Test 11:35:11 - Booster for Pfizer series) [code = COVID-19 VACCINE (3 - Booster for Pfizer series)] Future Scheduled 2021-08-02 INFLUENZA VACCINE [facility] Test 11:35:11 [code = INFLUENZA VACCINE] Future Scheduled [facility] Test screening (procedure) [code = 252174042] Future Scheduled SHINGLES VACCINES [facility] Test (#1) [code = SHINGLES VACCINES (#1)] Future Scheduled INFLUENZA VACCINE [facility] Test [code = INFLUENZA VACCINE] Encounters Start End Encounter Admission Attending Care Care Encounter Source Date/Time Date/Time Type Type Clinicians Facility Department ID 2022-03-28 2022-03-28 Telephone Silvestre, 1.2.840.1 [id number] Methodi 00:00:00 00:00:[address] 3.430.2.7 Hospit a .3.671647 l .8 2022-03-28 2022-03-28 Travel 1.2.840.1 1.2.966.881 [id number] Methodi 00:00:00 00:00:[address] 3.430.2.7 0.2.7.3.698 Ho spita .3.552209 084.8 l .8 2022-03-28 2022-03-28 Telephone Silvestre, 1.2.840.1 [id number] Methodi 00:00:00 00:00:[address] 3.430.2.7 Hospit a .3.098057 l .8 2022-03-28 2022-03-28 Travel 1.2.840.1 1.2.801.691 [id number] Methodi 00:00:00 00:00:[address] 3.430.2.7 0.2.7.3.698 Ho spita .3.566868 084.8 l .8 2021-12-11 2021-12-11 Telephone SakinaTeduj 1.2.840.1 [id number] Methodi 00:00:00 00:00:[address] 3.430.2.7 Hospit a .3.191177 l .8 2021-12-08 2021-12-08 Outpatient SAKINATED AntonyUJ [facility] 2099 [id number] [place] 00:00:00 00:00:[address] 2021-12-05 2021-12-05 Telephone SakinaTeduj 1.2.840.1 [id number] Methodi 00:00:00 00:00:[address] 3.430.2.7 Hospit a .3.674759 l .8 2021-11-29 2021-11-29 Lab Wild Presley 1.2.840.1 [id number] Methodi 12:35:00 12:40:[address] 3.430.2.7 Hospit a .3.961404 l .8 2021-11-29 2021-11-29 Office Wild Presley 1.2.840.1 [id number] Methodi 11:15:00 12:30:[address] 3.430.2.7 Hospit a .3.312242 l .8 2021-11-29 2021-11-29 Travel 1.2.840.1 1.2.731.641 1296 [id number] Methodi 00:00:00 00:00:[address] 3.430.2.7 0.2.7.3.698 Ho spita .3.741256 084.8 l .8 2021-07-26 2021-07-26 [facility] 1.2.840.1 [id number] Methodi 12:30:00 12:35:[address] 3.430.2.7 Hospit a .3.254863 l .8 2021-07-26 2021-07-26 [facility] Wild Presley 1.2.840.1 [id number] Methodi 11:30:00 12:18:[address] 3.430.2.7 Hospit a .3.410475 l .8 2021-07-26 2021-07-26 Travel 1.2.840.1 1.2.706.500 4502 [id number] Methodi 00:00:00 00:00:[address] 3.430.2.7 0.2.7.3.698 Ho spita .3.559257 084.8 l .8 2021-03-29 2021-03-29 [facility] Wild Presley 1.2.840.1 [id number] Methodi 14:33:24 14:38:[address] 3.430.2.7 Hospit a .3.007216 l .8 2021-03-29 2021-03-29 [facility] Wild Presley 1.2.840.1 [id number] [id number] Methodi 13:49:53 14:26:[address] 3.430.2.7 Hospit a .3.865746 l .8 2021-03-29 2021-03-29 Travel 1.2.840.1 1.2.158.837 7744 [id number] Methodi 00:00:00 00:00:[address] 3.430.2.7 0.2.7.3.698 Ho spita .3.284849 084.8 l .8 2021-03-10 2021-03-10 Nurse Therapy, Adc Covid Infusion [facility] 1.2.840.114 [id number] Univers 09:16:12 10:16:12 Visit Hawa Rolon 350.1.13.10 [place] [id number] [place] [address] Branch 2021-03-10 2021-03-10 Outpatient R [facility] [id number] Univers 10:00:00 10:00:00 HAWA hebert [facility] 2021-03-10 2021-03-10 Orders Doctor CHUCK 1.2.840.114 [id number] [facility] 00:00:00 00:00:00 Only Unassigned, DEBBIE 350.1.13.10 ity of [place] [facility] 4.2.7.2.686 Everardo as [id number] [place] [address] Branch 2021-01-25 2021-01-25 Outpatient MICH Vasquez [facility] LOLLY [id number] [facility] 12:00:00 12:00:00 Mass, 05 Karime blank [facility] 2021-01-05 2021-01-05 Telephone Ambrosio, 1.2.840.1 [id number] [id number] Methodi 00:00:00 00:00:[address] [facility] 3.430.2.7 Hospit a .3.836741 l .8 2020-12-02 2020-12-02 Outpatient [facility] [id number] [place] 00:00:00 00:00:[address] 2020-12-02 2020-12-02 Travel 1.2.840.1 1.2.965.906 3040 [id number] Methodi 00:00:00 00:00:[address] 3.430.2.7 0.2.7.3.698 Ho spita .3.592315 084.8 l .8 2020-11-23 2020-11-23 Office Sakina, Wild 1.2.840.1 [id number] [id number] Methodi 11:41:49 12:43:39 Visit Neli Vasquez 26192.1.[address] 3.430.2.7 Hospit a .3.440402 l .8 2020-11-23 2020-11-23 Lab [facility] 1.2.840.1 [id number] Methodi 12:12:07 12:17:[address] 3.430.2.7 Hospit a .3.730758 l .8 2020-11-23 2020-11-23 Travel 1.2.840.1 1.2.240.537 0507 [id number] Methodi 00:00:00 00:00:[address] 3.430.2.7 0.2.7.3.698 Ho spita .3.196898 084.8 l .8 2020-08-03 2020-08-03 Clinical 1.2.840.1 [id number] Methodi 13:34:06 13:43:[address] 3.430.2.7 Hospit a .3.450678 l .8 2020-07-30 2020-07-30 Patient Jacques [facility] 1.2.840.114 [id number] 00:00:00 00:00:00 Outreach Steve PRIMARY 350.1.13.10 [place] [facility] 4.2.7.2.686 PAVILLION [id number] 388 2020-07-30 2020-07-30 Patient Jacques [facility] 1.2.840.114 [id number] Univers 00:00:00 00:00:00 Outreach Steve PRIMARY 350.1.13.10 i ty of [place] 4[place].2.686 [place] [id number] [place] dical 388 Branch 2020-07-27 2020-07-27 [facility], 1.2.840.1 [id number] Methodi 15:00:00 23:59:00 Encounter Selene Davies 33072.1.[address] 3.430.2.7 Hospit a .3.487379 l .8 2020-07-27 2020-07-27 Hospital Selene [place] 1.2.840.1 [id number] Methodi 13:47:37 15:48:02 Encounter Marc Stover 11724.1.[address] 3.430.2.7 Hospit a .3.449895 l .8 2020-07-27 2020-07-27 Lab [place] 1.2.840.1 [id number] Methodi 12:28:19 12:33:[address] 3.430.2.7 Hospit a .3.715612 l .8 2020-07-27 2020-07-27 Office Wild [place] 1.2.840.1 [id number] Methodi 11:43:47 12:15:48 Visit Neli Clifford 78792.1.[address] 3.430.2.7 Hospit a .3.784862 l .8 2020-07-27 2020-07-27 Travel 1.2.840.1 1.2.882.908 0172 [id number] Methodi 00:00:00 00:00:[address] 3.430.2.7 0.2.7.3.698 [facility] 084.8 l .8 2020-07-26 2020-07-26 [facility] 1.2.840.1 [id number] 2099 [id number] Methodi 00:00:00 00:00:00 Selene Davies 94204.1.[address] 3.430.2.7 Hospit a .3.751562 l .8 2020-07-25 2020-07-25 Telephone [facility], 1.2.840.1 [id number] 2099 [id number] Methodi 00:00:00 00:00:00 Selene Davies 96154.1.[address] 3.430.2.7 Hospit a .3.252307 l .8 2020-07-22 2020-07-22 [facility] 1.2.840.114 [id number] 00:00:00 00:00:00 Kymberly A [place] 350.1.13.10 [place] 4.2.7.2.686 Professio [id number] [address] 2020-07-22 2020-07-22 [facility] 1.2.840.114 [id number] [facility] 00:00:00 00:00:00 Kymberly A [place] 350.1.13.10 [place] [id number] [address] 2020-07-19 2020-07-19 Orders Doctor CHUCK 1.2.840.114 [id number] 00:00:00 00:00:00 Only Unassigned, DEBBIE 350.1.13.10 [place] HOSPITAL 4.2.7.2.686 [phone] [facility] 2020-07-19 2020-07-19 Orders Doctor CHUCK 1.2.840.114 [id number] [facility] 00:00:00 00:00:00 Only Unassigned, DEBBIE 350.1.13.10 [place] [facility] 4.2.7.2.686 Everardo as [phone] [address] 2020-07-18 2020-07-18 Refill [place], [facility] 1.2.840.114 [id number] 00:00:00 00:00:00 Kymberly A [place] 350.1.13.10 [place] 4.2.7.2.686 Professio [phone] [address] 2020-07-18 2020-07-18 [facility], [facility] 1.2.840.114 [id number] [id number] [facility] 00:00:00 00:00:00 Kymberly A [place] 350.1.13.10 [place] [phone] [address] 2020-07-17 2020-07-17 [facility] 1.2.840.114 [id number] [id number] 00:00:00 00:00:00 Kymberly Vera 350.1.13.10 [place] 4.2.7.2.686 Professio [phone] [address] 2020-07-17 2020-07-17 [facility] 1.2.840.114 [id number] [id number] [facility] 00:00:00 00:00:00 Kymberly Vera 350.1.13.10 [place] [phone] [address] 2020-07-13 2020-07-13 Clinical 1.2.840.1 [id number] 02823 [id number] Methodi 17:59:27 18:08:[address] 3.430.2.7 Hospit a .3.236186 l .8 2020-07-13 2020-07-13 Travel 1.2.840.1 1.2.708.436 5728 260201 Methodi 00:00:00 00:00:[address] 3.430.2.7 0.2.7.3.698 Ho spita .3.770499 084.8 l .8 2020-07-11 2020-07-11 [facility] 1.2.840.1 [id number] 05571 57498 Methodi 01:00:00 23:59:00 Yesi Selene SellersDasha 78605.1.[address] 3.430.2.7 Hospit a .3.467399 l .8 2020-07-06 2020-07-06 Travel 1.2.840.1 1.2.918.871 9466 360440 Methodi 00:00:00 00:00:[address] 3.430.2.7 0.2.7.3.698 Ho spita .3.418921 084.8 l .8 2020-06-16 2020-06-16 Travel 1.2.840.1 1.2.258.833 2522 213992 Methodi 00:00:00 00:00:[address] 3.430.2.7 0.2.7.3.698 Ho spita .3.199834 084.8 l .8 2020-04-28 2020-04-28 Telephone [facility] 1.2.840.114 7 [id number] 00:00:00 00:00:00 Kymberly Vera 350.1.13.10 [place] 4.2.7.2.686 Professio [phone] [address] 2020-04-28 2020-04-28 Orders Doctor CHUCK 1.2.840.114 [id number] 00:00:00 00:00:00 Only Unassigned, DEBBIE 350.1.13.10 [place] [facility] 4.2.7.2.686 [phone] [facility] 2020-04-28 2020-04-28 Telephone [facility] 1.2.840.114 7 [id number] Univers 00:00:00 00:00:00 Kymberly Vera 350.1.13.10 [place] [phone] [place] dical [address] 2020-04-28 2020-04-28 Orders Doctor CHUCK 1.2.840.114 [id number] [facility] 00:00:00 00:00:00 Only Unassigned, DEBBIE 350.1.13.10 ity of [place] [facility] 4.2.7.2.686 Everardo as [phone] [address] 2020-04-27 2020-04-27 [facility] Selene Vila.2.840.1 03459 1189 [id number] Methodi 13:14:38 16:41:51 Encounter Sarah Lawton 66508.1.[address] 3.430.2.7 Hospit a .3.911943 l .8 2020-04-26 2020-04-26 Outpatient WILD [facility] 2099 [id number] [place] 00:00:00 00:00:[address] 2020-04-26 2020-04-26 Telephone [place], 1.2.840.1 [id number] [id number] Methodi 00:00:00 00:00:00 Selene Davies 46753.1.[address] 3.430.2.7 Hospit a .3.652427 l .8 2020-04-26 2020-04-26 Travel 1.2.840.1 1.2.733.336 2733 294136 Methodi 00:00:00 00:00:[address] 3.430.2.7 0.2.7.3.698 Ho spita .3.944436 084.8 l .8 2020-04-21 2020-04-21 Telemedici Jacquie, 1.2.840.1 [id number] Methodi 10:31:18 10:46:18 ne Andres 51047.1.[address] [place] 3.430.2.7 Hospit a .3.408513 l .8 2020-04-20 2020-04-20 Lab [facility] [place] 1.2.840.1 [id number] 282 [id number] Methodi 11:37:38 11:42:[address] 3.430.2.7 Hospit a .3.600446 l .8 2020-04-20 2020-04-20 Office [place] 1.2.840.1 [id number] 639 [id number] Methodi 11:14:53 11:35:[address] 3.430.2.7 Hospit a .3.209833 l .8 2020-04-20 2020-04-20 Travel 1.2.840.1 1.2.976.666 4089 433194 Methodi 00:00:00 00:00:[address] 3.430.2.7 0.2.7.3.698 Ho spita .3.424026 084.8 l .8 2020-03-01 2020-03-01 Oncology Maikol, 1.2.840.1 [id number] 09803 00591 Methodi 00:00:00 00:00:00 [facility] Medardo 16547.1.1 270 s t ip 3.430.2.7 Hospit a .3.163375 l .8 2020-01-06 2020-01-06 Outpatient FARACH, [facility] [id number] [place] 00:00:00 00:00:00 SELENE 484 Method i 2020-01-06 2020-01-06 Outpatient FARACH, [facility] [id number] 311 [place] 00:00:00 00:00:00 SELENE 164 Method i 2020-01-06 2020-01-06 Outpatient FARACH, [facility] [id number] [place] 00:00:00 00:00:00 SELENE 963 Method i 2020-01-06 2020-01-06 Outpatient [place]ARACH, [facility] [id number] 310 [place] 00:00:00 00:00:00 SELENE 645 Method i 2020-01-04 2020-01-04 Outpatient [place]ARACH, [facility] [id number] [place] 00:00:00 00:00:00 SELENE 644 Method i 2020-01-04 2020-01-04 Outpatient [place], [facility] [id number] [place] 00:00:00 00:00:00 SELENE 163 Method i 2020-01-01 2020-01-01 Outpatient FARACH, [facility] [id number] [place] 00:00:00 00:00:00 SELENE 162 Method i 2020-01-01 2020-01-01 Outpatient FARACH, [facility] [id number] 310 [place] 00:00:00 00:00:00 SELENE 643 Method i 2019-12-31 2019-12-31 Outpatient [facility] [id number] 786 [place] 00:00:00 00:00:00 618 Method i 2019-12-31 2019-12-31 Outpatient FARACH, [facility] [id number] 788 [place] 00:00:00 00:00:00 SELENE 720 Method i 2019-12-30 2019-12-30 Outpatient [facility] [id number] 786 [place] 00:00:00 00:00:[address] 2019-12-29 2019-12-29 Outpatient [facility] [id number] 786 [place] 00:00:00 00:00:[address] 2019-12-28 2019-12-28 Outpatient [facility] [id number] 786 [place] 00:00:00 00:00:[address] 2019-12-25 2019-12-25 Outpatient [facility] [id number] 786 [place] 00:00:00 00:00:[address] 2019-12-24 2019-12-25 Outpatient FARACH, [facility] [id number] [place] 00:00:00 00:00:00 SELENE [address] 2019-12-24 2019-12-24 Outpatient BAILEYBAI, [facility] 2100 [id number] [place] 00:00:00 00:00:00 TONI [address] 2019-12-24 2019-12-24 Outpatient NEELACH, [facility] [id number] 263 [place] 00:00:00 00:00:00 SELENE [address] 2019-12-24 2019-12-24 Outpatient [facility] [id number] 786 [place] 00:00:00 00:00:[address] 2019-12-24 2019-12-24 Outpatient NEELACH, [facility] [id number] 788 [place] 00:00:00 00:00:00 SELENE [address] 2019-12-23 2019-12-23 Outpatient [facility] [id number] 786 [place] 00:00:00 00:00:[address] 2019-12-22 2019-12-22 Outpatient [facility] [id number] 786 [place] 00:00:00 00:00:[address] 2019-12-21 2019-12-21 Outpatient [facility] [id number] 786 [place] 00:00:00 00:00:[address] 2019-12-18 2019-12-18 Outpatient [facility] [id number] 786 [place] 00:00:00 00:00:[address] 2019-12-17 2019-12-17 Outpatient R[place], [facility] [id number] 788 [place] 00:00:00 00:00:00 SELENE [address] 2019-12-17 2019-12-17 Outpatient [facility] [id number] 786 [place] 00:00:00 00:00:[address] 2019-12-17 2019-12-17 Outpatient NEELACH, [facility] [id number] 969 [place] 00:00:00 00:00:00 SELENE [address] 2019-12-16 2019-12-16 Outpatient [facility] [id number] [place] 00:00:00 00:00:[address] 2019-12-15 2019-12-16 Outpatient NEELACH, [facility] [id number] 787 [place] 00:00:00 00:00:00 SELENE [address] 2019-12-15 2019-12-15 Outpatient TABATABAI, [facility] 2100 [id number] [place] 00:00:00 00:00:00 TONI [address] 2019-12-15 2019-12-15 Outpatient [facility] [id number] 786 [place] 00:00:00 00:00:[address] 2019-12-14 2019-12-14 Outpatient [facility] [id number] 786 [place] 00:00:00 00:00:[address] 2019-12-11 2019-12-11 Outpatient [facility] [id number] 786 [place] 00:00:00 00:00:[address] 2019-12-10 2019-12-11 Outpatient R[place], [facility] [id number] 591 [place] 00:00:00 00:00:00 SELENE [address] 2019-12-10 2019-12-10 Outpatient [facility] [id number] 786 [place] 00:00:00 00:00:[address] 2019-12-10 2019-12-10 Outpatient R[place], [facility] [id number] 788 [place] 00:00:00 00:00:00 SELENE [address] 2019-12-09 2019-12-09 Outpatient [facility] [id number] 786 [place] 00:00:00 00:00:[address] 2019-12-08 2019-12-08 Outpatient [facility] [id number] 786 [place] 00:00:00 00:00:[address] 2019-12-07 2019-12-07 Outpatient NEELACH, [facility] [id number] 855 [place] 00:00:00 00:00:00 SELENE [address] 2019-12-07 2019-12-07 Outpatient [facility] [id number] 786 [place] 00:00:00 00:00:[address] 2019-12-04 2019-12-04 Outpatient [facility] [id number] 786 [place] 00:00:00 00:00:[address] 2019-12-03 2019-12-03 Outpatient [facility] [id number] [place] 00:00:00 00:00:[address] 2019-12-03 2019-12-03 Outpatient FARACH, [facility] [id number] 788 [place] 00:00:00 00:00:00 SELENE [address] 2019-12-02 2019-12-02 Outpatient [facility] [id number] 786 [place] 00:00:00 00:00:[address] 2019-12-01 2019-12-01 Outpatient [facility] [id number] 786 [place] 00:00:00 00:00:[address] 2019-11-27 2019-11-27 Outpatient [facility] [id number] 786 [place] 00:00:00 00:00:[address] 2019-11-26 2019-11-26 Outpatient FARACH, [facility] [id number] 786 [place] 00:00:00 00:00:00 SELENE [address] 2019-11-19 2019-11-19 Telephone [facility] 1.2.840.114 [id number] [facility] 00:00:00 00:00:00 Kymberly Vera 350.1.13.10 ity [facility] [place]2.[place] [phone] [place] dical [address] 2019-11-19 2019-11-19 [facility] 1.2.840.114 [id number] 00:00:00 00:00:00 Kymberly Vera 350.1.13.10 [place] 4.2.7.2.686 Professio [phone] [address] 2019-11-18 2019-11-18 Outpatient SAKINA, WILD [facility] 2100 [id number] [place] 00:00:00 00:00:00 001 Method i 2019-11-18 2019-11-18 Outpatient FARACH, [facility] [id number] [place] 00:00:00 00:00:00 SELENE 874 Method i 2019-11-18 2019-11-18 Outpatient FARACH, [facility] [id number] [place] 00:00:00 00:00:00 SELENE 851 Method i 2019-11-17 2019-11-[address] [facility] 1.2.840.114 [id number] [facility] 07:55:54 13:46:22 ne Visit Kymberly Vera 350.1.13.10 it[place] [phone] [address] 2019-11-17 2019-11-[address] [facility] 1.2.840.114 [id number] 07:55:54 13:46:22 ne Visit Kymberly Vera 350.1.13.10 [place] 4.2.7.2.686 Professio [phone] [address] 2019-11-17 2019-11-17 Outpatient R JOLANTA [facility] [id number] [facility] 13:40:00 13:40:00 KYMBERLY hebert of [facility] 2019-11-09 2019-11-09 Outpatient RIVER, [facility] [id number] 912 [place] 00:00:00 00:00:00 SELENE 477 Method i 2019-11-06 2019-11-07 Outpatient NEELACH, [facility] [id number] 855 [place] 00:00:00 00:00:00 SELENE 840 Method i 2019-11-03 2019-11-03 Telephone Jolanta [facility] 1.2.840.114 7 [id number] [facility] 00:00:00 00:00:00 Kymberly Vera 350.1.13.10 [place] [phone] [place] dic[address] 2019-11-03 2019-11-03 Telephone Jolanta [facility] 1.2.840.114 [id number] 00:00:00 00:00:00 Kymberly A [place] 350.1.13.10 [place] 4.2.7.2.686 Professio [phone] [address] 2019-10-28 2019-10-28 [facility] 1.2.840.114 7 [id number] [facility] 00:00:00 00:00:00 Kymberly A [place] 350.1.13.10 it[place].2.[place] [phone] [place] dic[address] 2019-10-28 2019-10-28 [facility] 1.2.840.114 7 [id number] [facility] 00:00:00 00:00:00 Kymberly A Chuy 350.1.13.10 it[place].2.[place] [phone] [place] dic[address] 2019-10-27 2019-10-27 Orders Doctor CHUCK 1.2.840.114 [id number] Univers 00:00:00 00:00:00 Only Unassigned, DEBBIE 350.1.13.10 [facility] [place] [facility] 4.2.7.2.686 Everardo as [phone] [address] 2019-10-27 2019-10-27 Orders Doctor CHUCK 1.2.840.114 [id number] 00:00:00 00:00:00 Only Unassigned, DEBBIE 350.1.13.10 [place] [facility] 4.2.7.2.686 [phone] [facility] 2019-10-23 2019-10-23 [facility] 1.2.840.114 [id number] [facility] 00:00:00 00:00:00 Kymberly A [place] 350.1.13.10 [place]2.[place] [phone] [place] dic[address] 2019-10-14 2019-10-14 Outpatient WILD [facility] 2100 [id number] [place] 00:00:00 00:00:[address] 2019-10-14 2019-10-14 Outpatient SAKINA, [facility] 2100 [id number] [place] 00:00:00 00:00:[address] 2019-10-14 2019-10-14 Nurse Jolanta [facility] 1.2.840.114 [id number] [facility] 00:00:00 00:00:00 Triage Kymberly Vera 350.1.13.10 ity [facility] 4[place]7.2.[place] [phone] [place] dical [address] 2019-10-06 2019-10-06 Outpatient SAKINA, [facility] 021 [id number] [place] 00:00:00 00:00:[address] 2019-09-28 2019-09-28 Outpatient SAKINA, [facility] 2100 [id number] [place] 00:00:00 00:00:00 269 Method i 2019-09-28 2019-09-28 Outpatient SAKINA, [facility] 2100 [id number] [place] 00:00:00 00:00:[address] 2019-09-25 2019-09-25 Outpatient SAKINA, [facility] 2100 [id number] [place] 00:00:00 00:00:[address] 2019-09-17 2019-09-17 Outpatient R SMITH, [facility] [id number] Univers 10:00:00 10:00:00 DONALD ity of [facility] 2019-09-17 2019-09-17 Orders Doctor WOODS 1.2.840.114 [id number] [facility] 00:00:00 00:00:00 Only Unassigned, DEBBIE 350.1.13.10 ity of [facility] 4.2.7.2.686 [place] as [phone] [address] 2019-09-16 2019-09-16 Outpatient SAKINA, [facility] 2100 [id number] [place] 00:00:00 00:00:[address] 2019-09-16 2019-09-16 Outpatient SAKINA, [facility] 2100 [id number] [place] 00:00:00 00:00:[address] 2019-08-11 2019-08-11 Telephone Jolanta WYLORENZO 1.2.840.114 [id number] Univers 00:00:00 00:00:00 Kymberly Vera 350.1.13.10 [place] [phone] [address] 2019-07-07 2019-07-21 Inpatient CAPO Ng TELE [id number] [facility] 11:42:00 11:52:[address] 2019-02-05 2019-02-05 Refill Jolanta [facility] 1.2.840.114 [id number] Univers 00:00:00 00:00:00 Kymberly Vera 350.1.13.10 [place].2.[place] [phone] [address] 2019-02-04 2019-02-04 Patient Doctor CHUCK 1.2.840.114 [id number] Univers 00:00:00 00:00:00 Secure Msg Unassigned, DEBBIE 350.1.13.10 ity of [place] [facility] 4.2.7.2.686 [place] as [phone] [address] Results Test Description Test Time Test Comments Results Result Comments Source CBC W/AUTO DIFF 2019-07-08 05:33:00 Test Item Value Reference Range Interpretation Comme nts WHITE BLOOD CELL (test code = WBC) 6.5 K/MM3 3.8-9.8 N RED BLOOD CELL (test code = RBC) 3.27 M/MM3 3.58-4.97 L HEMOGLOBIN (test code = HGB) 8.7 G/DL 11.2-14.9 L HEMATOCRIT (test code = HCT) 29.1 % 33.2-43.5 L MEAN CELL VOLUME (test code = MCV) 89 fL 80.7-99.1 N MEAN CELL HGB (test code = MCH) 26.6 pg 27.0-34.1 L MEAN CELL HGB CONCETRATION (test code = MCHC) 29.9 % 32.2-35. 7 L RED CELL DISTRIBUTION WIDTH (test code = RDW) 14.9 % 12.1-15. 2 N PLATELET COUNT (test code = PLT) 163 K/MM3 129-368 MEAN PLATELET VOLUME (test code = MPV) 9.4 fl 7.4-10.4 N NEUTROPHIL % (test code = NT%) 67.0 % 43-75 N IMMATURE GRANULOCYTE % (test code = IG%) 0.3 % 0.0-2.0 N LYMPHOCYTE % (test code = LY%) 21.9 % 14-44 N MONOCYTE % (test code = MO%) 8.8 % 4-13 N EOSINOPHIL % (test code = EO%) 1.7 % 0-6 N BASOPHIL % (test code = BA%) 0.3 % 0-2 N NUCLEATED RBC % (test code = NRBC%) 0.0 % 0-1.0 N NEUTROPHIL # (test code = NT#) 4.32 K/mm3 2.0-7.6 N IMMATURE GRANULOCYTE # (test code = IG#) 0.02 x10 3/uL 0-0.03 N LYMPHOCYTE # (test code = LY#) 1.41 K/mm3 1.0-3.8 N MONOCYTE # (test code = MO#) 0.57 K/mm3 0.1-0.8 N EOSINOPHIL # (test code = EO#) 0.11 K/mm3 0.0-0.2 N BASOPHIL # (test code = BA#) 0.02 K/mm3 0.0-0.2 N NUCLEATED RBC # (test code = NRBC#) 0.00 K/mm3 0.0-0.1 N RECOLLECTION NEEDED ON 07/08/19 AT 0510 BY NOLANRBREASON: CLOTTED/ PLT COUN DROPNOTIFIED PATIENT CARE STAFF: MARCI Arreguin [facility]OL[facility] [id number] 05:21:00 Test Item Value Reference Range Interpretation Comments SODIUM (test code = 136 MMOL/L 137-145 L NA) POTASSIUM (test code = 3.9 MMOL/L 3.5-5.1 N K) CHLORIDE (test code = 105 MMOL/L 98-107 N CL) CARBON DIOXIDE (test 24 MMOL/L 22-30 N code = CO2) ANION GAP (test code = 11 MMOL/L 14-24 L GAP) GLUCOSE (test code = 98 MG/DL 74-106 N GLU) BLOOD UREA NITROGEN 12 MG/DL 7-17 N (test code = BUN) GLOMERULAR FILTRATION > 60 Report ing units: RATE (test code = GFR) ml/mi n/1.73 m2 (Modified MDRD Formula)Referen ce Range: > or = 6 0 ml/min/1.73 m2 CREATININE (test code 0.60 MG/DL 0.52-1.04 N = CREAT) CALCIUM (test code = 7.5 MG/DL 8.4-10.2 L CA) BASIC METABOLIC [id number] 05:16:00 Test Item Value Reference Range Interpretation Comments SODIUM (test code = 136 MMOL/L 137-145 L NA) POTASSIUM (test code = 3.9 MMOL/L 3.5-5.1 N K) CHLORIDE (test code = 105 MMOL/L 98-107 N CL) CARBON DIOXIDE (test MMOL/L 22-30 code = CO2) GLUCOSE (test code = MG/DL 74-106 GLU) BLOOD UREA NITROGEN MG/DL 7-17 (test code = BUN) GLOMERULAR FILTRATION > 60 Report ing units: RATE (test code = GFR) ml/mi n/1.73 m2 (Modified MDRD Formula)Referen ce Range: > or = 6 0 ml/min/1.73 m2 CREATININE (test code 0.60 MG/DL 0.52-1.04 N = CREAT) CALCIUM (test code = MG/DL 8.7-9.7 CA) BASIC METABOLIC [id number] 05:14:00 Test Item Value Reference Range Interpretation Comments SODIUM (test code = NA) 136 MMOL/L 137-145 L POTASSIUM (test code = K) 3.9 MMOL/L 3.5-5.1 N CHLORIDE (test code = CL) 105 MMOL/L 98-107 N CARBON DIOXIDE (test code = CO2) MMOL/L 22-30 GLUCOSE (test code = GLU) MG/DL 74-106 BLOOD UREA NITROGEN (test code = MG/DL 7-17 BUN) GLOMERULAR FILTRATION RATE (test code = GFR) CREATININE (test code = CREAT) MG/DL 0.52-1.04 CALCIUM (test code = CA) MG/DL 8.7-9.7 BASIC METABOLIC [id number] 05:13:00 Test Item Value Reference Range Interpretation Comments SODIUM (test code = NA) 136 MMOL/L 137-145 L POTASSIUM (test code = K) MMOL/L 3.5-5.1 CHLORIDE (test code = CL) 105 MMOL/L 98-107 N CARBON DIOXIDE (test code = CO2) MMOL/L 22-30 GLUCOSE (test code = GLU) MG/DL 74-106 BLOOD UREA NITROGEN (test code = MG/DL 7-17 BUN) GLOMERULAR FILTRATION RATE (test code = GFR) CREATININE (test code = CREAT) MG/DL 0.52-1.04 CALCIUM (test code = CA) MG/DL 8.7-9.7 [id number] 11:38:00 Test Item Value Reference Range Interpretation Comments ACT-ISTAT (test code = ACTI) 296 SEC 74-137 H [id number] 11:38:00 Test Item Value Reference Range Interpretation Comments ACT-ISTAT (test code = ACTI) 301 SEC 74-137 H [id number] 11:38:00 Test Item Value Reference Range Interpretation Comments ACT-ISTAT (test code = ACTI) 329 SEC 74-137 H [id number] 11:38:00 Test Item Value Reference Range Interpretation Comments ACT-ISTAT (test code = ACTI) 329 SEC 74-137 H [id number] 11:38:00 Test Item Value Reference Range Interpretation Comments ACT-ISTAT (test code = ACTI) 296 SEC 74-137 H [id number] 11:38:00 Test Item Value Reference Range Interpretation Comments ACT-ISTAT (test code = ACTI) 252 SEC 74-137 H BASIC METABOLIC [id number] 07:15:00 Test Item Value Reference Range Interpretation Comments SODIUM (test code = 139 MMOL/L 137-145 N NA) POTASSIUM (test code = 3.8 MMOL/L 3.5-5.1 N K) CHLORIDE (test code = 102 MMOL/L 98-107 N CL) CARBON DIOXIDE (test 26 MMOL/L 22-30 N code = CO2) GLUCOSE (test code = 115 MG/DL 74-106 H GLU) BLOOD UREA NITROGEN 16 MG/DL 7-17 N (test code = BUN) GLOMERULAR FILTRATION > 60 Report ing units: RATE (test code = GFR) ml/mi n/1.73 m2 (Modified MDRD Formula)Referen ce Range: > or = 6 0 ml/min/1.73 m2 CREATININE (test code 0.80 MG/DL 0.52-1.04 N = CREAT) CALCIUM (test code = 8.9 MG/DL 8.4-10.2 N CA) [id number] 07:15:00 Test Item Value Reference Range Interpretation Comments MAGNESIUM (test code = MAG) 1.9 MG/DL 1.6-2.3 N BASIC METABOLIC [id number] 07:14:00 Test Item Value Reference Range Interpretation Comments SODIUM (test code = 139 MMOL/L 137-145 N NA) POTASSIUM (test code = 3.8 MMOL/L 3.5-5.1 N K) CHLORIDE (test code = 102 MMOL/L 98-107 N CL) CARBON DIOXIDE (test 26 MMOL/L 22-30 N code = CO2) GLUCOSE (test code = 115 MG/DL 74-106 H GLU) BLOOD UREA NITROGEN 16 MG/DL 7-17 N (test code = BUN) GLOMERULAR FILTRATION > 60 Report ing units: RATE (test code = GFR) ml/mi n/1.73 m2 (Modified MDRD Formula)Referen ce Range: > or = 6 0 ml/min/1.73 m2 CREATININE (test code 0.80 MG/DL 0.52-1.04 N = CREAT) CALCIUM (test code = MG/DL 8.7-9.7 CA) [id number] 07:14:00 Test Item Value Reference Range Interpretation Comments MAGNESIUM (test code = MAG) MG/DL 1.6-2.3 BASIC METABOLIC [id number] 07:11:00 Test Item Value Reference Range Interpretation Comments SODIUM (test code = NA) 139 MMOL/L 137-145 N POTASSIUM (test code = K) 3.8 MMOL/L 3.5-5.1 N CHLORIDE (test code = CL) 102 MMOL/L 98-107 N CARBON DIOXIDE (test code = CO2) MMOL/L 22-30 GLUCOSE (test code = GLU) MG/DL 74-106 BLOOD UREA NITROGEN (test code = MG/DL 7-17 BUN) GLOMERULAR FILTRATION RATE (test code = GFR) CREATININE (test code = CREAT) MG/DL 0.52-1.04 CALCIUM (test code = CA) MG/DL 8.7-9.7 [id number] 07:11:00 Test Item Value Reference Range Interpretation Comments MAGNESIUM (test code = MAG) MG/DL 1.6-2.3 PROTHROMBIN [id number] 07:09:00 Test Item Value Reference Range Interpretation Comments PROTHROMBIN TIME 10.3 SECONDS 9.6-11.6 N PATIENT (test code = PTP) INTERNATIONAL NORMAL 1.0 0.8-1.1 N The INR is to be RATIO (test code = used only for INR) monitoring oral anticoagulantth erap y. INDICATION I NR VALUE ---- ---- ---- -------1. Prophylaxis, de ep venous thrombos is, including high risk surgery. 2.0 - 3.0 2. Prophylaxis, deep venous thrombosis, hip surgery, treatm ent for deep venous thrombosis or pulmonary prevention of systemic emboli sm in patients wit h valvular heart disease, atrial fibrillation, tissue heart va lve, or acute myocar dial infarction. 2.0 - 3.0 3. Snow Removal/Plowing al prosthesis hear t valves, recurre nt systemic emboli sm. 3.0 - 4.5 Comments to Police Captain: WILL BRING SPECIMAN TO THE [facility] [id number] 07:09:00 Test Item Value Reference Range Interpretation Comments PTT ACTIVATED (test code = APTT) 27.1 SECONDS 22.0-33.0 N Comments to Police Captain: WILL BRING SPECIMAN TO THE [facility] W/AUTO DIFF 2019-07-07 06:53:00 Test Item Value Reference Range Interpretation Comments WHITE BLOOD CELL (test code = 6.6 K/MM3 3.8-9.8 N WBC) RED BLOOD CELL (test code = 4.36 M/MM3 3.58-4.97 N RBC) HEMOGLOBIN (test code = HGB) 11.6 G/DL 11.2-14.9 N HEMATOCRIT (test code = HCT) 38.0 % 33.2-43.5 N MEAN CELL VOLUME (test code = 87 fL 80.7-99.1 N MCV) MEAN CELL HGB (test code = MCH) 26.6 pg 27.0-34.1 L MEAN CELL HGB CONCETRATION 30.5 % 32.2-35.7 L (test code = MCHC) RED CELL DISTRIBUTION WIDTH 14.6 % 12.1-15.2 N (test code = RDW) PLATELET COUNT (test code = 242 K/MM3 129-368 N PLT) MEAN PLATELET VOLUME (test code 10.0 fl 7.4-10.4 N = MPV) NEUTROPHIL % (test code = NT%) 66.8 % 43-75 N IMMATURE GRANULOCYTE % (test 0.5 % 0.0-2.0 N code = IG%) LYMPHOCYTE % (test code = LY%) 22.9 % 14-44 N MONOCYTE % (test code = MO%) 8.1 % 4-13 N EOSINOPHIL % (test code = EO%) 1.4 % 0-6 N BASOPHIL % (test code = BA%) 0.3 % 0-2 N NUCLEATED RBC % (test code = 0.0 % 0-1.0 N NRBC%) NEUTROPHIL # (test code = NT#) 4.44 K/mm3 2.0-7.6 N IMMATURE GRANULOCYTE # (test 0.03 x10 3/uL 0-0.03 N code = IG#) LYMPHOCYTE # (test code = LY#) 1.52 K/mm3 1.0-3.8 N MONOCYTE # (test code = MO#) 0.54 K/mm3 0.1-0.8 N EOSINOPHIL # (test code = EO#) 0.09 K/mm3 0.0-0.2 N BASOPHIL # (test code = BA#) 0.02 K/mm3 0.0-0.2 N NUCLEATED RBC # (test code = 0.00 K/mm3 0.0-0.1 N NRBC#) [id number] 06:13:00 Test Item Value Reference Range Interpretation Comments CREATININE (test code = CREAT) 0.60 MG/DL 0.52-1.04 N PLATELET [id number] 05:55:00 Test Item Value Reference Range Interpretation Comments PLATELET COUNT (test code = PLT) 202 K/MM3 129-368 N COMPREHENSIVE METABOLIC [id number] 13:52:00 Test Item Value Reference Range Interpretation Comments SODIUM (test code = NA) 134 MMOL/L 137-145 L POTASSIUM (test code = 3.6 MMOL/L 3.5-5.1 N K) CHLORIDE (test code = 99 MMOL/L 98-107 N CL) CARBON DIOXIDE (test 29 MMOL/L 22-30 N code = CO2) GLUCOSE (test code = 106 MG/DL 74-106 N GLU) BLOOD UREA NITROGEN 14 MG/DL 7-17 N (test code = BUN) GLOMERULAR FILTRATION > 60 Report ing units: RATE (test code = GFR) ml/mi n/1.73 m2 (Modified MDRD Formula)Referen ce Range: > or = 6 0 ml/min/1.73 m2 CREATININE (test code = 0.80 MG/DL 0.52-1.04 N CREAT) TOTAL PROTEIN (test 5.6 G/DL 6.3-8.2 L code = PROT) ALBUMIN (test code = 3.1 G/DL 3.5-5.0 L ALB) CALCIUM (test code = 8.0 MG/DL 8.4-10.2 L CA) BILIRUBIN TOTAL (test 0.5 MG/DL 0.2-1.3 N code = BILT) SGOT/AST (test code = 26 UNITS/L 14-36 N AST) SGPT/ALT (test code = 33 UNITS/L 9-52 N ALT) ALKALINE PHOSPHATASE 71 UNITS/L 38-126 N (test code = ALKP) [id number] 13:52:00 Test Item Value Reference Range Interpretation Comments PHOSPHOROUS (test code = PHOS) 3.0 MG/DL 2.5-4.5 N [id number] 13:52:00 Test Item Value Reference Range Interpretation Comments MAGNESIUM (test code = MAG) 1.7 MG/DL 1.6-2.3 N COMPREHENSIVE METABOLIC [id number] 13:51:00 Test Item Value Reference Range Interpretation Comments SODIUM (test code = NA) 134 MMOL/L 137-145 L POTASSIUM (test code = 3.6 MMOL/L 3.5-5.1 N K) CHLORIDE (test code = 99 MMOL/L 98-107 N CL) CARBON DIOXIDE (test 29 MMOL/L 22-30 N code = CO2) GLUCOSE (test code = 106 MG/DL 74-106 N GLU) BLOOD UREA NITROGEN 14 MG/DL 7-17 N (test code = BUN) GLOMERULAR FILTRATION > 60 Report ing units: RATE (test code = GFR) ml/mi n/1.73 m2 (Modified MDRD Formula)Referen ce Range: > or = 6 0 ml/min/1.73 m2 CREATININE (test code = 0.80 MG/DL 0.52-1.04 N CREAT) TOTAL PROTEIN (test 5.6 G/DL 6.3-8.2 L code = PROT) ALBUMIN (test code = 3.1 G/DL 3.5-5.0 L ALB) CALCIUM (test code = 8.0 MG/DL 8.4-10.2 L CA) BILIRUBIN TOTAL (test 0.5 MG/DL 0.2-1.3 N code = BILT) SGOT/AST (test code = 26 UNITS/L 14-36 N AST) SGPT/ALT (test code = 33 UNITS/L 9-52 N ALT) ALKALINE PHOSPHATASE 71 UNITS/L 38-126 N (test code = ALKP) [id number] 13:51:00 Test Item Value Reference Range Interpretation Comments PHOSPHOROUS (test code = PHOS) 3.0 MG/DL 2.5-4.5 N [id number] 13:51:00 Test Item Value Reference Range Interpretation Comments MAGNESIUM (test code = MAG) MG/DL 1.6-2.3 COMPREHENSIVE METABOLIC [id number] 13:50:00 Test Item Value Reference Range Interpretation Comments SODIUM (test code = NA) 134 MMOL/L 137-145 L POTASSIUM (test code = 3.6 MMOL/L 3.5-5.1 N K) CHLORIDE (test code = 99 MMOL/L 98-107 N CL) CARBON DIOXIDE (test MMOL/L 22-30 code = CO2) GLUCOSE (test code = MG/DL 74-106 GLU) BLOOD UREA NITROGEN MG/DL 7-17 (test code = BUN) GLOMERULAR FILTRATION > 60 Report ing units: RATE (test code = GFR) ml/mi n/1.73 m2 (Modified MDRD Formula)Referen ce Range: > or = 6 0 ml/min/1.73 m2 CREATININE (test code = 0.80 MG/DL 0.52-1.04 N CREAT) TOTAL PROTEIN (test G/DL 6.3-8.2 code = PROT) ALBUMIN (test code = 3.1 G/DL 3.5-5.0 L ALB) CALCIUM (test code = MG/DL 8.7-9.7 CA) BILIRUBIN TOTAL (test MG/DL 0.2-1.3 code = BILT) SGOT/AST (test code = UNITS/L 15-37 AST) SGPT/ALT (test code = UNITS/L 9-52 ALT) ALKALINE PHOSPHATASE UNITS/L 38-126 (test code = ALKP) [id number] 13:50:00 Test Item Value Reference Range Interpretation Comments PHOSPHOROUS (test code = PHOS) MG/DL 2.5-4.5 [id number] 13:50:00 Test Item Value Reference Range Interpretation Comments MAGNESIUM (test code = MAG) MG/DL 1.6-2.3 COMPREHENSIVE METABOLIC [id number] 13:48:00 Test Item Value Reference Range Interpretation Comments SODIUM (test code = NA) 134 MMOL/L 137-145 L POTASSIUM (test code = K) 3.6 MMOL/L 3.5-5.1 N CHLORIDE (test code = CL) 99 MMOL/L 98-107 N CARBON DIOXIDE (test code = CO2) MMOL/L 22-30 GLUCOSE (test code = GLU) MG/DL 74-106 BLOOD UREA NITROGEN (test code = MG/DL 7-17 BUN) GLOMERULAR FILTRATION RATE (test code = GFR) CREATININE (test code = CREAT) MG/DL 0.52-1.04 TOTAL PROTEIN (test code = PROT) G/DL 6.3-8.2 ALBUMIN (test code = ALB) 3.1 G/DL 3.5-5.0 L CALCIUM (test code = CA) MG/DL 8.7-9.7 BILIRUBIN TOTAL (test code = BILT) MG/DL 0.2-1.3 SGOT/AST (test code = AST) UNITS/L 15-37 SGPT/ALT (test code = ALT) UNITS/L 9-52 ALKALINE PHOSPHATASE (test code = UNITS/L 38-126 ALKP) [id number] 13:48:00 Test Item Value Reference Range Interpretation Comments PHOSPHOROUS (test code = PHOS) MG/DL 2.5-4.5 [id number] 13:48:00 Test Item Value Reference Range Interpretation Comments MAGNESIUM (test code = MAG) MG/DL 1.6-2.3 COMPREHENSIVE METABOLIC [id number] 13:47:00 Test Item Value Reference Range Interpretation Comments SODIUM (test code = NA) MMOL/L 137-145 POTASSIUM (test code = K) MMOL/L 3.5-5.1 CHLORIDE (test code = CL) 99 MMOL/L 98-107 N CARBON DIOXIDE (test code = CO2) MMOL/L 22-30 GLUCOSE (test code = GLU) MG/DL 74-106 BLOOD UREA NITROGEN (test code = MG/DL 7-17 BUN) GLOMERULAR FILTRATION RATE (test code = GFR) CREATININE (test code = CREAT) MG/DL 0.52-1.04 TOTAL PROTEIN (test code = PROT) G/DL 6.3-8.2 ALBUMIN (test code = ALB) G/DL 3.5-5.0 CALCIUM (test code = CA) MG/DL 8.7-9.7 BILIRUBIN TOTAL (test code = BILT) MG/DL 0.2-1.3 SGOT/AST (test code = AST) UNITS/L 15-37 SGPT/ALT (test code = ALT) UNITS/L 9-52 ALKALINE PHOSPHATASE (test code = UNITS/L 38-126 ALKP) [id number] 13:47:00 Test Item Value Reference Range Interpretation Comments PHOSPHOROUS (test code = PHOS) MG/DL 2.5-4.5 [id number] 13:47:00 Test Item Value Reference Range Interpretation Comments MAGNESIUM (test code = MAG) MG/DL 1.6-2.3 CBC W/AUTO [id number] 13:08:00 Test Item Value Reference Range Interpretation Comments WHITE BLOOD CELL (test code = 8.1 K/MM3 3.8-9.8 N WBC) RED BLOOD CELL (test code = 3.15 M/MM3 3.58-4.97 L RBC) HEMOGLOBIN (test code = HGB) 9.7 G/DL 11.2-14.9 L HEMATOCRIT (test code = HCT) 30.3 % 33.2-43.5 L MEAN CELL VOLUME (test code = 96 fL 80.7-99.1 N MCV) MEAN CELL HGB (test code = MCH) 30.8 pg 27.0-34.1 N MEAN CELL HGB CONCETRATION 32.0 % 32.2-35.7 L (test code = MCHC) RED CELL DISTRIBUTION WIDTH 14.5 % 12.1-15.2 N (test code = RDW) PLATELET COUNT (test code = 231 K/MM3 129-368 N PLT) MEAN PLATELET VOLUME (test code 8.9 fl 7.4-10.4 N = MPV) NEUTROPHIL % (test code = NT%) 71.0 % 43-75 N IMMATURE GRANULOCYTE % (test 0.4 % 0.0-2.0 N code = IG%) LYMPHOCYTE % (test code = LY%) 20.4 % 14-44 N MONOCYTE % (test code = MO%) 5.8 % 4-13 N EOSINOPHIL % (test code = EO%) 2.2 % 0-6 N BASOPHIL % (test code = BA%) 0.2 % 0-2 N NUCLEATED RBC % (test code = 0.0 % 0-1.0 N NRBC%) NEUTROPHIL # (test code = NT#) 5.76 K/mm3 2.0-7.6 N IMMATURE GRANULOCYTE # (test 0.03 x10 3/uL 0-0.03 N code = IG#) LYMPHOCYTE # (test code = LY#) 1.66 K/mm3 1.0-3.8 N MONOCYTE # (test code = MO#) 0.47 K/mm3 0.1-0.8 N EOSINOPHIL # (test code = EO#) 0.18 K/mm3 0.0-0.2 N BASOPHIL # (test code = BA#) 0.02 K/mm3 0.0-0.2 N NUCLEATED RBC # (test code = 0.00 K/mm3 0.0-0.1 N NRBC#) [id number] 08:00:00 Test Item Value Reference Range Interpretation Comments GLUBED (test code = GLUBED) 140 mg/dL 60-125 H - XR SPINE 1 V SPEC [id number] 12:26:00 Patient Name: SIA ESCAMILLA Unit No: [id number] EXAMS: CPT CODE: [id number] XR SPINE 1 V SPEC LEVEL 40980 3 LATERAL INTRAOPERATIVE VIEWS OF THE LUMBAR SPINE Image 1: Surgical instrumentation is at the L4 level. Image 2: In progress L4 S1 posterior decompression and fusion without complication. Image 3: L4-S1 posterior instrumented fusion is present without evidence of complication. Interbodygrafts are well-positioned. at 1226 Reported and signed by: Darío Barney M.D. CC: Stewart Wooten M.D. Technologist: LASHELL ERNST RT(R) Transcribed D/ (5296) t.LETICIAR.[facility] NAME: SIA ESCAMILLA [address] [facility] [address] [facility] PHYS: Devon David MD : 1940 AGE: 78 SEX: F [place], [place] [address] LOC: Y.502 A PHONE #: [phone] EXAM DATE: 03/26/2019 STATUS: DIS IN FAX #: [phone] RAD #: D/C DT 03/29/2019 PAGE 1 Signed Report Patient Name: SIA ESCAMILLA Unit No: [id number] EXAMS: CPT CODE: [id number] XR SPINE 1 V SPEC LEVEL 25715 <Continued> Orig Print D/T: S: 03/30/2019 (7437) [facility] NAME: SIA ESCAMILLA [address] [facility] PHYS: Devon David MD : 1940 AGE: 78 SEX: F [place], [place] [address] LOC: Y.502 A PHONE #: [phone] EXAM DATE: 03/26/2019 STATUS: DIS IN FAX#: [phone] RAD #: D/C DT 03/29/2019 PAGE 2 Signed Report- XR SPINE 1 V SPEC [id number] 12:26:00 Patient Name: SIA ESCAMILLA Unit No: [id number] EXAMS: CPT CODE: [id number] XR SPINE 1 V SPEC LEVEL 67262 3 LATERAL INTRAOPERATIVE VIEWS OF THE LUMBAR SPINE Image 1: Surgical instrumentation is at the L4 level. Image 2: In progress L4 S1 posterior decompression and fusion without complication. Image 3: L4-S1 posterior instrumented fusion is present without evidence of complication. Interbodygrafts are well-positioned. at 1226 Reported and signed by: Darío Barney M.D. CC: Stewart Wooten M.D. Technologist: DEVON HOGUE (RT.R) Transcribed D/ (1226) tNABEELJ [facility] NAME: SIA ESCAMILLA [address] [facility] PHYS: Devon David MD : 1940 AGE: 78 SEX: F [place], [place] [address] LOC: Y.502 A PHONE #: [phone] EXAM DATE: 03/26/2019 STATUS: DIS IN FAX #: [phone] RAD #: D/C DT 03/29/2019 PAGE 1 Signed Report Patient Name: SIA ESCAMILLA Unit No: [id number] EXAMS: CPT CODE: [id number] XR SPINE 1 V SPEC LEVEL 44829 <Continued> Orig Print D/T: S: 03/30/2019 (1221) [facility] NAME: SIA ESCAMILLA [address] [facility] PHYS: Devon David MD : 1940 AGE: 78 SEX: F [place], [place] LOC: Y.502 A PHONE #: [phone] EXAM DATE: 03/26/2019 STATUS: DIS IN FAX #: [phone] RAD #: D/C DT 03/29/2019 PAGE 2 Signed Report- XR SPINE 1 V SPEC [id number] 12:26:00 Patient Name: SIA ESCAMILLA Unit No: [id number] EXAMS: CPT CODE: [id number] XR SPINE 1 V SPEC LEVEL 72426 3 LATERAL INTRAOPERATIVE VIEWS OF THE LUMBAR SPINE Image 1: Surgical instrumentation is at the L4 level. Image 2: In progress L4 S1 posterior decompression and fusion without complication. Image 3: L4-S1 posterior instrumented fusion is present without evidence of complication. Interbodygrafts are well-positioned. at 1226 Reported and signed by: Darío Barney M.D. CC: Stewart Wooten M.D. Technologist: DEVON HOGUE (RT.R) Transcribed D/ (1226) tYVON.[facility] NAME: SIA ESCAMILLA [address] [facility] PHYS: Devon David MD : 1940 AGE: 78 SEX: F [place], [place] [address] LOC: Y.502 A PHONE #: [phone] EXAM DATE: 03/26/2019 STATUS: DIS IN FAX #: [phone] RAD #: D/C DT 03/29/2019 PAGE 1 Signed Report Patient Name: SIA ESCAMILLA Unit No: [id number] EXAMS: CPT CODE: [id number] XR SPINE 1 V SPEC LEVEL 59384 <Aniceto nued> Orig Print D/T: S: 03/30/2019 (4359) [facility] NAME: SIA ESCAMILLA [address] [facility] PHYS: Devon David MD : 1940 AGE: 78 SEX: [place] [address] LOC: Y.502 A PHONE #: [phone] EXAM DATE: 03/26/2019 STATUS: DIS IN FAX #: [phone] RAD #: D/C DT 03/29/2019 PAGE 2 Signed ReportHGB [id number] 08:39:00 Test Item Value Reference Range Interpretation Comments HEMOGLOBIN (test code = HGB) 8.7 g/dL 10.7-13.9 L HEMATOCRIT (test code = HCT) 27.2 % 32.1-42.1 L HGB [id number] 08:39:00 Test Item Value Reference Range Interpretation Comments HEMOGLOBIN (test code = HGB) 8.7 g/dL 10.7-13.9 L HEMATOCRIT (test code = HCT) 27.2 % 32.1-42.1 L [id number] 06:03:00 Test Item Value Reference Range Interpretation Comments GLUBED (test code = GLUBED) 85 mg/dL 60-125 N [id number] 20:35:00 Test Item Value Reference Range Interpretation Comments GLUBED (test code = GLUBED) 98 mg/dL 60-125 N [id number] 16:57:00 Test Item Value Reference Range Interpretation Comments GLUBED (test code = GLUBED) 101 mg/dL 60-125 N [id number] 16:57:00 Test Item Value Reference Range Interpretation Comments GLUBED (test code = GLUBED) 107 mg/dL 60-125 N VANCOMYCIN [id number] 13:25:00 Test Item Value Reference Range Interpretation Comments VANCOMYCIN TROUGH (test code = 12.50 mcg/mL 15.0-20.0 L VANCT) DATE OF LAST DOSE: 03/27/19TIME OF LAST DOSE: 2100VANCOMYCIN [id number] 13:24:00 Test Item Value Reference Range Interpretation Comments VANCOMYCIN TROUGH (test code = 12.50 mcg/mL 15.0-20.0 L VANCT) DATE OF LAST DOSE: 03/27/19TIME OF LAST DOSE: 2100HGB [id number] 06:30:00 Test Item Value Reference Range Interpretation Comments HEMOGLOBIN (test code = HGB) 8.6 g/dL 12-16 L HEMATOCRIT (test code = HCT) 26.7 % 37-47 L [id number] 05:46:00 Test Item Value Reference Range Interpretation Comments GLUBED (test code = GLUBED) 113 mg/dL 60-125 N [id number] 20:56:00 Test Item Value Reference Range Interpretation Comments GLUBED (test code = GLUBED) 143 mg/dL 60-125 H BASIC METABOLIC [id number] 06:46:00 Test Item Value Reference Range Interpretation Comments SODIUM (test code = 134 mmol/L 136-145 L NA) POTASSIUM (test code = 4.4 mmol/L 3.5-5.1 N K) CHLORIDE (test code = 98.0 mmol/L 98-107 N CL) CARBON DIOXIDE (test 26.0 mmol/L 21-32 N code = CO2) GLUCOSE (test code = 191 mg/dL 70-110 H GLU) BLOOD UREA NITROGEN 10 mg/dL 7-18 N (test code = BUN) GLOMERULAR FILTRATION 68.6 >60 Unit o f measure: RATE (test code = GFR) mL/mi n/1.73 d0Npzokuvvs Range:Healthy A dults >90 mL/min/1.73 m2 For Chronic Kid shannan Disease: Stage II Mild Decrease i n GFR 60-90 Stage III Moderate Decrea se in GFR 30-59 Stage IV Severe Decrease in GFR 15-29 Stage V Kidney Failure <15 CREATININE (test code 0.81 mg/dL 0.55-1.30 N = CREAT) CALCIUM (test code = 7.7 mg/dL 8.2-10.1 L CA) HGB [id number] 05:49:00 Test Item Value Reference Range Interpretation Comments HEMOGLOBIN (test code = HGB) 9.8 g/dL 12-16 L HEMATOCRIT (test code = HCT) 29.9 % 37-47 L BASIC METABOLIC [id number] 16:40:00 Test Item Value Reference Range Interpretation Comments SODIUM (test code = 134 mmol/L 136-145 L NA) POTASSIUM (test code = 4.3 mmol/L 3.5-5.1 N K) CHLORIDE (test code = 96.0 mmol/L 98-107 L CL) CARBON DIOXIDE (test 28.5 mmol/L 21-32 N code = CO2) GLUCOSE (test code = 100 mg/dL 70-110 N GLU) BLOOD UREA NITROGEN 11 mg/dL 7-18 N (test code = BUN) GLOMERULAR FILTRATION 60.7 >60 Unit o f measure: RATE (test code = GFR) mL/mi n/1.73 m6Rmmisnkne Range:Healthy A dults >90 mL/min/1.73 m2 For Chronic Kid shannan Disease: Stage II Mild Decrease i n GFR 60-90 Stage III Moderate Decrea se in GFR 30-59 Stage IV Severe Decrease in GFR 15-29 Stage V Kidney Failure <15 CREATININE (test code 0.90 mg/dL 0.55-1.30 N = CREAT) CALCIUM (test code = 8.7 mg/dL 8.2-10.1 N CA) CBC W/AUTO [id number] 16:14:00 Test Item Value Reference Range Interpretation Comments WHITE BLOOD CELL (test code = WBC) 5.6 K/mm3 5.8-11.0 L RED BLOOD CELL (test code = RBC) 4.60 M/mm3 4.2-5.4 N HEMOGLOBIN (test code = HGB) 13.8 g/dL 12-16 N HEMATOCRIT (test code = HCT) 41.4 % 37-47 N MEAN CELL VOLUME (test code = MCV) 90 fL 80-98 N MEAN CELL HGB (test code = MCH) 30.0 pg 27-34 N MEAN CELL HGB CONCENTRATION (test 33.3 g/dL 30.8-34.1 N code = MCHC) RED CELL DISTRIBUTION WIDTH (test 13.1 % 11-16 N code = RDW) PLT (test code = PLT) 249 K/mm3 130-400 N MEAN PLATELET VOLUME (test code = 10.7 fL 8.9-12.1 N MPV) NEUTROPHIL % (test code = NT%) 64.6 % 45-70 N LYMPHOCYTE % (test code = LY%) 25.3 % 20-40 N MONOCYTE % (test code = MO%) 8.8 % 3-10 N EOSINOPHIL % (test code = EO%) 0.7 % 1-5 L BASOPHIL % (test code = BA%) 0.4 % 0.0-1.1 N NEUTROPHIL # (test code = NT#) 3.60 K/mm3 2.00-7.50 N LYMPHOCYTE # (test code = LY#) 1.41 K/mm3 1.50-4.00 L MONOCYTE # (test code = MO#) 0.49 K/mm3 0.2-0.8 N EOSINOPHIL # (test code = EO#) 0.04 K/mm3 0.04-0.4 N BASOPHIL # (test code = BA#) 0.02 K/mm3 0.02-0.10 N MANUAL DIFF REQUIRED (test code = NO MANUAL DIFF MDIFF) NUCLEATED RED BLOOD CELL (test 0 % 0-0 N code = NRBC) URINALYSIS [id number] 14:42:00 Test Item Value Reference Range Interpretation Comments UA COLOR (test code = COLU) YELLOW YELLOW UA APPEARANCE (test code = SL CLOUDY CLEAR A APPU) UA GLUCOSE DIPSTICK (test code NEGATIVE NEGATIVE = DGLUU) UA BILIRUBIN DIPSTICK (test NEGATIVE NEGATIVE code = BILU) UA KETONE DIPSTICK (test code NEGATIVE mg/dL NEG = KETU) UA SPECIFIC GRAVITY (test code 1.010 1.003-1.035 = SGU) UA BLOOD DIPSTICK (test code = NEGATIVE NEGATIVE FABIAN) UA PH DIPSTICK (test code = 7.0 >6.5 AUGUST) UA PROTEIN DIPSTICK (test code NEGATIVE mg/dL NEG = PROU) UA UROBILINIOGEN DIPSTICK 0.2 mg/dL NORM (test code = URO) UA NITRITE DIPSTICK (test code NEGATIVE NEG = YOSSI) UA LEUKOCYTE ESTERASE DIPSTICK NEGATIVE NEGATIVE (test code = LEUU) UA WBC (test code = WBCU) <5 /HPF 0-2 UA RBC (test code = RBCU) 0-2 /HPF 0-2 UA EPITHELIAL CELLS (test code FEW /HPF 0-2 = EPIU) UA BACTERIA (test code = BACU) FEW /HPF NONE URINALYSIS [id number] 16:40:00 Test Item Value Reference Range Interpretation Comments UA COLOR (test code = COLU) YELLOW YELLOW UA APPEARANCE (test code = SL CLOUDY CLEAR A APPU) UA GLUCOSE DIPSTICK (test code NEGATIVE NEGATIVE = DGLUU) UA BILIRUBIN DIPSTICK (test NEGATIVE NEGATIVE code = BILU) UA KETONE DIPSTICK (test code NEGATIVE mg/dL NEG = KETU) UA SPECIFIC GRAVITY (test code 1.010 1.003-1.035 = SGU) UA BLOOD DIPSTICK (test code = NEGATIVE NEGATIVE FABIAN) UA PH DIPSTICK (test code = 7.0 >6.5 AUGUST) UA PROTEIN DIPSTICK (test code NEGATIVE mg/dL NEG = PROU) UA UROBILINIOGEN DIPSTICK 0.2 mg/dL NORM (test code = URO) UA NITRITE DIPSTICK (test code NEGATIVE NEG = YOSSI) UA LEUKOCYTE ESTERASE DIPSTICK NEGATIVE NEGATIVE (test code = LEUU) UA WBC (test code = WBCU) <5 /HPF 0-2 UA RBC (test code = RBCU) 0-2 /HPF 0-2 UA EPITHELIAL CELLS (test code FEW /HPF 0-2 = EPIU) UA BACTERIA (test code = BACU) MODERATE /HPF NONE BASIC METABOLIC [id number] 12:40:00 Test Item Value Reference Range Interpretation Comments SODIUM (test code = 139 mmol/L 136-145 N NA) POTASSIUM (test code = 4.5 mmol/L 3.5-5.1 N K) CHLORIDE (test code = 101.0 mmol/L 98-107 N CL) CARBON DIOXIDE (test 30.4 mmol/L 21-32 N code = CO2) GLUCOSE (test code = 108 mg/dL 70-110 N GLU) BLOOD UREA NITROGEN 17 mg/dL 7-18 N (test code = BUN) GLOMERULAR FILTRATION 52.0 >60 Unit o f measure: RATE (test code = GFR) mL/mi n/1.73 g5Fujufkruj Range:Healthy Adults >90 mL/min/1.73 m2 For Chronic Kidney Disease: Stage II Mild Decrease i n GFR 60-90 Stage III Moderate Decrea se in GFR 30-59 St age IV Severe Decre ase in GFR 15-29 St age V Kidney Failur e <15 CREATININE (test code 1.03 mg/dL 0.55-1.30 N = CREAT) CALCIUM (test code = 9.5 mg/dL 8.2-10.1 N CA) CBC W/AUTO [id number] 12:11:00 Test Item Value Reference Range Interpretation Comments WHITE BLOOD CELL (test code = WBC) 5.8 K/mm3 5.8-11.0 N RED BLOOD CELL (test code = RBC) 4.90 M/mm3 4.2-5.4 N HEMOGLOBIN (test code = HGB) 14.6 g/dL 12-16 N HEMATOCRIT (test code = HCT) 44.4 % 37-47 N MEAN CELL VOLUME (test code = MCV) 91 fL 80-98 N MEAN CELL HGB (test code = MCH) 29.8 pg 27-34 N MEAN CELL HGB CONCENTRATION (test 32.9 g/dL 30.8-34.1 N code = MCHC) RED CELL DISTRIBUTION WIDTH (test 12.5 % 11-16 N code = RDW) PLT (test code = PLT) 231 K/mm3 130-400 N MEAN PLATELET VOLUME (test code = 10.8 fL 8.9-12.1 N MPV) NEUTROPHIL % (test code = NT%) 63.7 % 45-70 N LYMPHOCYTE % (test code = LY%) 25.0 % 20-40 N MONOCYTE % (test code = MO%) 9.4 % 3-10 N EOSINOPHIL % (test code = EO%) 1.4 % 1-5 N BASOPHIL % (test code = BA%) 0.3 % 0.0-1.1 N NEUTROPHIL # (test code = NT#) 3.67 K/mm3 2.00-7.50 N LYMPHOCYTE # (test code = LY#) 1.44 K/mm3 1.50-4.00 L MONOCYTE # (test code = MO#) 0.54 K/mm3 0.2-0.8 N EOSINOPHIL # (test code = EO#) 0.08 K/mm3 0.04-0.4 N BASOPHIL # (test code = BA#) 0.02 K/mm3 0.02-0.10 N MANUAL DIFF REQUIRED (test code = NO MANUAL DIFF MDIFF) NUCLEATED RED BLOOD CELL (test 0 % 0-0 N code = NRBC) CBC W/AUTO [id number] 08:53:00 Test Item Value Reference Range Interpretation Comments WHITE BLOOD CELL (test code = 7.2 K/MM3 3.8-9.8 N WBC) RED BLOOD CELL (test code = 3.78 M/MM3 3.58-4.97 RBC) HEMOGLOBIN (test code = HGB) 11.3 G/DL 11.2-14.9 N HEMATOCRIT (test code = HCT) 35.7 % 33.2-43.5 MEAN CELL VOLUME (test code = 94 fL 80.7-99.1 N MCV) MEAN CELL HGB (test code = MCH) 29.9 pg 27.0-34.1 N MEAN CELL HGB CONCETRATION 31.7 % 32.2-35.7 L (test code = MCHC) RED CELL DISTRIBUTION WIDTH 13.9 % 12.1-15.2 N (test code = RDW) PLATELET COUNT (test code = 170 K/MM3 129-368 N PLT) MEAN PLATELET VOLUME (test code 10.4 fl 7.4-10.4 N = MPV) NEUTROPHIL % (test code = NT%) 62.7 % 43-75 N IMMATURE GRANULOCYTE % (test 0.4 % 0.0-2.0 N code = IG%) LYMPHOCYTE % (test code = LY%) 23.4 % 14-44 N MONOCYTE % (test code = MO%) 9.6 % 4-13 N EOSINOPHIL % (test code = EO%) 3.5 % 0-6 N BASOPHIL % (test code = BA%) 0.4 % 0-2 N NUCLEATED RBC % (test code = 0.0 % 0-1.0 N NRBC%) NEUTROPHIL # (test code = NT#) 4.49 K/mm3 2.0-7.6 N IMMATURE GRANULOCYTE # (test 0.03 x10 3/uL 0-0.03 N code = IG#) LYMPHOCYTE # (test code = LY#) 1.68 K/mm3 1.0-3.8 N MONOCYTE # (test code = MO#) 0.69 K/mm3 0.1-0.8 N EOSINOPHIL # (test code = EO#) 0.25 K/mm3 0.0-0.2 H BASOPHIL # (test code = BA#) 0.03 K/mm3 0.0-0.2 N NUCLEATED RBC # (test code = 0.00 K/mm3 0.0-0.1 N NRBC#) BASIC METABOLIC [id number] 08:40:00 Test Item Value Reference Range Interpretation Comments SODIUM (test code = 135 MMOL/L 137-145 L NA) POTASSIUM (test code = 3.7 MMOL/L 3.5-5.1 N K) CHLORIDE (test code = 104 MMOL/L 98-107 N CL) CARBON DIOXIDE (test 24 MMOL/L 22-30 N code = CO2) ANION GAP (test code = 11 MMOL/L 14-24 L GAP) GLUCOSE (test code = 112 MG/DL 74-106 H GLU) BLOOD UREA NITROGEN 22 MG/DL 7-17 H (test code = BUN) GLOMERULAR FILTRATION 54 Report ing units: RATE (test code = GFR) ml/mi n/1.73 m2 (Modified MDRD Formula)Referen ce Range: > or = 6 0 ml/min/1.73 m2 CREATININE (test code 1.00 MG/DL 0.52-1.04 N = CREAT) CALCIUM (test code = 8.5 MG/DL 8.4-10.2 N CA) BASIC METABOLIC [id number] 07:07:00 Test Item Value Reference Range Interpretation Comments SODIUM (test code = 138 MMOL/L 137-145 N NA) POTASSIUM (test code = 3.9 MMOL/L 3.5-5.1 N K) CHLORIDE (test code = 98 MMOL/L 98-107 N CL) CARBON DIOXIDE (test 25 MMOL/L 22-30 N code = CO2) ANION GAP (test code = 19 MMOL/L 14-24 N GAP) GLUCOSE (test code = 133 MG/DL 74-106 H GLU) BLOOD UREA NITROGEN 26 MG/DL 7-17 H (test code = BUN) GLOMERULAR FILTRATION 48 Report ing units: RATE (test code = GFR) ml/mi n/1.73 m2 (Modified MDRD Formula)Referen ce Range: > or = 6 0 ml/min/1.73 m2 CREATININE (test code 1.10 MG/DL 0.52-1.04 H = CREAT) CALCIUM (test code = 9.4 MG/DL 8.4-10.2 N CA) [id number] 07:07:00 Test Item Value Reference Range Interpretation Comments MAGNESIUM (test code = MAG) 2.1 MG/DL 1.6-2.3 N PROTHROMBIN [id number] 07:02:00 Test Item Value Reference Range Interpretation Comments PROTHROMBIN TIME 10.5 SECONDS 9.6-11.6 N PATIENT (test code = PTP) INTERNATIONAL NORMAL 1.0 0.8-1.1 N The INR is to be RATIO (test code = used only for INR) monitoring oral anticoagulantth erap y. INDICATION I NR VALUE ---- ---- ---- -------1. Prophylaxis, de ep venous thrombos is, including high risk surgery. 2.0 - 3.0 2. Prophylaxis, deep venous thrombosis, hip surgery, treatm ent for deep venous thrombosis or pulmonary prevention of systemic emboli sm in patients wit h valvular heart disease, atrial fibrillation, tissue heart va lve, or acute myocar dial infarction. 2.0 - 3.0 3. Snow Removal/Plowing al prosthesis hear t valves, recurre nt systemic emboli sm. 3.0 - 4.5 Comments to Police Captain: WILL BRING TO THE LABPTT [id number] 07:02:00 Test Item Value Reference Range Interpretation Comments PTT ACTIVATED (test code = APTT) 28.3 SECONDS 22.0-33.0 N Comments to Police Captain: WILL BRING TO THE LABCBC W/AUTO [id number] 06:56:00 Test Item Value Reference Range Interpretation Comments WHITE BLOOD CELL (test code = 7.3 K/MM3 3.8-9.8 N WBC) RED BLOOD CELL (test code = 4.74 M/MM3 3.58-4.97 N RBC) HEMOGLOBIN (test code = HGB) 14.4 G/DL 11.2-14.9 N HEMATOCRIT (test code = HCT) 43.8 % 33.2-43.5 H MEAN CELL VOLUME (test code = 92 fL 80.7-99.1 N MCV) MEAN CELL HGB (test code = MCH) 30.4 pg 27.0-34.1 N MEAN CELL HGB CONCETRATION 32.9 % 32.2-35.7 N (test code = MCHC) RED CELL DISTRIBUTION WIDTH 13.6 % 12.1-15.2 N (test code = RDW) PLATELET COUNT (test code = 211 K/MM3 129-368 N PLT) MEAN PLATELET VOLUME (test code 10.4 fl 7.4-10.4 N = MPV) NEUTROPHIL % (test code = NT%) 58.8 % 43-75 N IMMATURE GRANULOCYTE % (test 0.3 % 0.0-2.0 N code = IG%) LYMPHOCYTE % (test code = LY%) 31.4 % 14-44 N MONOCYTE % (test code = MO%) 7.7 % 4-13 N EOSINOPHIL % (test code = EO%) 1.2 % 0-6 N BASOPHIL % (test code = BA%) 0.6 % 0-2 N NUCLEATED RBC % (test code = 0.0 % 0-1.0 N NRBC%) NEUTROPHIL # (test code = NT#) 4.26 K/mm3 2.0-7.6 N IMMATURE GRANULOCYTE # (test 0.02 x10 3/uL 0-0.03 N code = IG#) LYMPHOCYTE # (test code = LY#) 2.28 K/mm3 1.0-3.8 N MONOCYTE # (test code = MO#) 0.56 K/mm3 0.1-0.8 N EOSINOPHIL # (test code = EO#) 0.09 K/mm3 0.0-0.2 N BASOPHIL # (test code = BA#) 0.04 K/mm3 0.0-0.2 N NUCLEATED RBC # (test code = 0.00 K/mm3 0.0-0.1 N NRBC#) Notes Date/Time Note Provider Source 2019-07-13 07:54:00-00:00 [id number] [facility] [id number] [place] [address] PATIENT NAME: SIA ESCAMILLA ADMIT DATE: 07/07/19 ACCOUNT NO: [id number] ROOM NO: [facility] AGE: 78 REPORT TYPE: eTRANSESOPHAGEAL ECHO SEX: F ADMITTING PHYSICIAN:Carlos Alberto Cash MD ATTENDING PHYSICIAN:Carlos Alberto Cash MD *[facility]* [address] [place] [address] Transesophageal Echocardiogram Patient: Sia Escamilla Study Date: 07/07/2019 BP: Location: [facility] URN: [id number] : 1940 Age: 78 Height: / Gender: F Weight: / BMI/BSA: / *Ordering Physician: * Carlos Alberto Cash MD *Interpreting Physician: * Carlos Alberto Cash MD *Extruding Machine Operator: * Shaunna Kumari RDCS, ETHAN Indications: PVI, EP, EVAL CECY. Study data: Consent: The risks, benefits, and al ternatives to the procedure were explained to the patient and info rmed consent was obtained. Procedure: Initial setup: The patient was brought to the laboratory in the fasting state.Intravenous acce ss was obtained. Surface ECG leads and pulse oximetric signals were monit ored. Sedation. Moderate sedation was administered by anesthesiology cesario rodriguez. Transesophageal echocardiography was performed. Topical anesthes ia was obtained using viscous lidocaine. A transesophageal probe (SN: [id number]) was inserted by the attending student services coordinator without difficulty. L ocation: Catheterization laboratory. [facility] Patient [facility] number: CATHLAB3. Study status: Scheduled. Study completion: The patient tolerated the procedure well. There were no complications. Findings Left ventricle: The cavity size is normal. Systo lic function is normal. PATIENT NAME: SIA ESCAMILLA ACCOUNT #: [id number] [place] [address] PATIENT NAME: SIA ESCAMILLA ADMIT DATE: 07/07/19 ACCOUNT NO: [id number] ROOM NO: [facility] AGE: 78 REPORT TYPE: eTRANSESOPHAGEAL ECHO SEX: F ADMITTING PHYSICIAN:Carlos Alberto Cash MD ATTENDING PHYSICIAN:Carlos Alberto Cash MD Left atrium: The atrium is normal in size. There is no left atrial appendage thrombus. Right atrium: The atrium is normal in size. Atrial septum: No defect or patent foramen ovale is identified. Aorta: There is mild atheromatous plaque. Aortic valve: The leaflets are normal thickness. There is mild regurgitation. Mitral valve: The leaflets are normal thickness. There is mild regurgitation. Tricuspid valve: The valve is structurally yoandy l. There is trivial regurgitation. Pulmonic valve: Not well visualized. There is tr ivial regurgitation. Conclusions Summary: Left ventricle: The cavity size is norm al. Systolic function is normal. Prepared and electronically signed by Carlos Alberto Cash MD 07/13/2019 07:54 at 0754 PATIENT NAME: SIA ESCAMILLA ACCOUNT #: [id number] 2019-07-08 08:10:00-00:00 [facility] ([facility] Cardiology Progress Note REPORT#:[id number] REPORT STATUS: Signed DATE:07/08/19 TIME: 08 PATIENT: SIA ESCAMILLA UNIT #: [id number] ROOM/BED: [address] : 41 AGE: 78 SEX: F ATTEND: Thang Cash MD ADM AUTHOR: Carlos Alberto Cash MD * ALL edits or amendments must be made on the [employer]/computer document * Subjective Chief Complaint: AFIB Patient reports: No: chest pain, palpitations, shortness of breat h. Objective General VS/I O: 24 hour I O ending at 0700: 07/08 0700 07/07 1900 Intake Total 300 Output Total 150 Balance 300 -150 Intake, Oral 300 Number Voids 3 Output, Urine 150 Patient 95.4 kg Weight Weight Stated/Reported Measurement Method Vital Signs: Date Time Temp Pulse Resp B/P B/P Pulse O2 O2 F low FiO2 Mean Ox Delivery Rate 07/08 075 98.2 60 17 102/64 76.5 92 07/08 0443 99.3 62 18 104/63 77.0 91 Room air 07/07 2309 98.6 65 18 112/67 82.0 92 Room air 07/07 1926 97.9 66 18 104/42 63.0 94 Room air 07/07 1719 98.1 61 111/69 83.2 93 07/07 1719 98.1 61 111/69 83.2 93 07/07 1418 98.3 60 16 104/67 79 93 Patient Weight Weight (lb): 210 Weight (oz): 5.14 Weight (kg): 95.400 Medications: Active Meds + DC'd Last 24 Hrs Atorvastatin Calcium 20 MG BEDTIME PO Enoxaparin Sodium 50 MG Q12HR SUBQ (DC) Enoxaparin Sodium 50 MG Q12HR SUBQ Flecainide Acetate 50 MG Q12HR PO Nebivolol 5 MG BEDTIME PO Sodium Chloride 1,000 ML ONCE ONE IV (DC) Pantoprazole 40 MG DAILY PO Zolpidem Tartrate 10 MG BEDTIME PRN PO Morphine Sulfate 0 .STK-MED ONE .ROUTE (DC) Morphine Sulfate 2 MG Q3H PRN PRN IV Heparin Sodium 0 .STK-MED ONE .ROUTE (DC) Sodium Chloride 1,000 ML .STK-MED ONE IV (DC) Sodium Chloride 100 ML .STK-MED ONE IV (DC) Ephedrine Sulfate 0 .STK-MED ONE .ROUTE (DC) Physical Exam General appearance: alert, awake, oriented Head/Eyes: atraumatic, normocephalic ENT: moist mucosal membranes Neck: no JVD Cardiovascular: CV assessment: regular rate and rhythm Respiratory: clear to auscultation, no distress Lower extremity: LE assessment: no edema Musculoskeletal: full range of motion Neuro/PROJECT ESTIMATOR: alert, oriented X 3, CN II-XII intact Skin: dry, intact Wound/incision: Site condition: dressing clean dry Psychiatry: normal affect, normal judgment/insig ht, normal mood Results Findings/Data: Laboratory Tests 07/08 0430 Chemistry Sodium (137 - 145 MMOL/L) 136 L Potassium (3.5 - 5.1 MMOL/L) 3.9 Chloride (98 - 107 MMOL/L) 105 Carbon Dioxide (22 - 30 MMOL/L) 24 Anion Gap (14 - 24 MMOL/L) 11 L BUN (7 - 17 MG/DL) 12 Creatinine (0.52 - 1.04 MG/DL) 0.60 Glomerular Filtr Rate > 60 Glucose (74 - 106 MG/DL) 98 Calcium (8.4 - 10.2 MG/DL) 7.5 L Laboratory Tests 07/07 07/07 07/07 07/07 07/07 1052 1034 1014 0957 0934 Coagulation Activated Coag Time (74 - 137 SEC) 296 H 301 H 329 H 329 H 296 H 07/07 0900 Coagulation Activated Coag Time (74 - 137 SEC) 252 H Laboratory Tests 07/08 0520 Hematology WBC (3.8 - 9.8 K/MM3) 6.5 RBC (3.58 - 4.97 M/MM3) 3.27 L Hgb (11.2 - 14.9 G/DL) 8.7 L Hct (33.2 - 43.5 %) 29.1 L MCV (80.7 - 99.1 fL) 89 MCH (27.0 - 34.1 pg) 26.6 L MCHC (32.2 - 35.7 %) 29.9 L RDW (12.1 - 15.2 %) 14.9 Plt Count (129 - 368 K/MM3) 163 MPV (7.4 - 10.4 fl) 9.4 Neut % (Auto) (43 - 75 %) 67.0 Lymph % (Auto) (14 - 44 %) 21.9 Hunt % (Auto) (4 - 13 %) 8.8 Eos % (Auto) (0 - 6 %) 1.7 Baso % (Auto) (0 - 2 %) 0.3 Neut # (Auto) (2.0 - 7.6 K/mm3) 4.32 Lymph # (Auto) (1.0 - 3.8 K/mm3) 1.41 Hunt # (Auto) (0.1 - 0.8 K/mm3) 0.57 Eos # (Auto) (0.0 - 0.2 K/mm3) 0.11 Baso # (Auto) (0.0 - 0.2 K/mm3) 0.02 Immature Gran % (0.0 - 2.0 %) 0.3 Nucleated RBC % (0 - 1.0 %) 0.0 Nucleated RBCs # (Man) (0.0 - 0.1 K/mm3) 0.00 Diagnosis, Assessment Plan Free Text DxA P Notes Free Text DxA P Notes: IMP: PAF s/p PVI PLAN: d/c home f/u one week at 0756 RPT #:[id number] END OF REPORT 2019-07-07 18:32:00-00:00 [id number] [place] [address] PATIENT NAME: SIA ESCAMILLA ADMIT DATE: 07/07/19 ACCOUNT NO: [id number] ROOM NO: Z.359 AGE: 78 REPORT TYPE: CARDIAC CATHETERIZATION REPORT SEX: F ADMITTING PHYSICIAN:Carlos Alberto Cash MD ATTENDING PHYSICIAN:Carlos Alberto Cash MD PROCEDURE DATE: 07/07/2019 PROCEDURES: 1. Transseptal left heart catheterization. 2. Intracardiac echocardiography. 3. Three-dimensional interatrial mapping. 4. Atrial fibrillation ablation/pulmonary vein i solation. PREPROCEDURE DIAGNOSES: 1. Paroxysmal atrial fibrillation. 2. History of atrial flutter, status post radiof requency ablation. POSTPROCEDURE DIAGNOSES: 1. Paroxysmal atrial fibrillation. 2. History of atrial flutter, status post radiof requency ablation. VENEER PRODUCTION MACHINE OPERATOR: Carlos Alberto Cash MD OREMAN: None. ANESTHESIA: General endotracheal anesthesia. PROCEDURE DETAILS: After informed consent was ob tained explaining to the patient risks, benefits, and alternatives, the p atient brought to cardiac catheterization lab in the fasting postabsorptiv e state. She was prepped and draped in sterile fashion. L ocal anesthesia was applied over both femoral veins with 1% lidocaine. Access to both femoral veins was obtained using modified Seldinger technique with a m icropuncture kit and ultrasound guidance. An Agilis sheath was placed in the right femoral vein. A l ocking 8, standard 8, and 9-Tanzanian sheath were placed in left femoral vein. All sheaths were connected to heparinized saline infusion. Intracardiac echoca rdiography catheter was advanced via the 9-Tanzanian sheath and placed in t he right atrium. Intracardiac echocardiography was performed to visualize the interatrial septum. A quadripolar deflectable cath eter was advanced via the 8-Tanzanian sheath and placed in the right ventricle. A coronary sinus decapol ar catheter was advanced via the locking 8-Tanzanian sheath and placed in the co ronary sinus. A Brockenbrough BK1 needle was then advanced through the Agilis dilator and sheath. The sheath dilator and needle were withdrawn into the poste rior septal region. After appropriate placement of the interatrial septum, a transseptal puncture was performed. The needle was removed and th e Agilis wire was advanced through the dilator and sheath were advanced over the intera trial septum. The dilator was removed. The sheath was aspirated and flushed. L eft atrial recordings were PATIENT NAME: SIA ESCAMILLA ACCOUNT #: Z [id number] made. A Sargent pigtail wire was then advanced th rough the Agilis sheath into the left atrium. The Agilis sheath was exchanged for the cryo sheath, which was advanced over the wire into the left atr ium. The dilator and wire removed. The sheath was aspirated and flushed and con nected to heparinized saline infusion. The cryoballoon was then prepped and adv anced through the sheath into the left atrium. The Achieve catheter was then us ed to advance the balloon in to the os of the pulmonary veins. Sequential isolation of the pulmonary veins using cryotherapy was then performed starting at the l eft superior, then the left inferior, right inferior, and right superior vei ns. Esophageal temperature monitoring was utilized. Phrenic nerve p acing was utilized during isolation of the right pulmonary veins to ensure phre vince nerve integrity. At the end of the procedure, post-isolation, a voltage map was obt ained utilizing the PentaRay catheter. The PentaRay be ter was utilized initially to create a pre-ablation voltage map prior to exchanging the Agilis sheat h for the cryo sheath. At the end of the procedure, the cryo sheath wa s withdrawn into the right atrium. The quadripolar catheter was then placed in the low right atrium. A bidirectional block across the cavotricusp id isthmus was confirmed using differential pacing. At the end of the procedure, all catheters were removed. All sheaths were aspirated and flushed. The sheaths were removed and hemostasis achieved with a [id number] suture. The patient tolerated th e procedure well with no complications. CONCLUSIONS: 1. Successful pulmonary vein isolation. 2. Estimated blood loss 10 mL. 3. No complications. Dictated By: Carlos Alberto Cash MD WT: CATH:JANIS/PEPCHELSEA/NTS Conf#: [id number]/DID#: [id number] Authenticated by Carlos Alberto Cash MD On 07/14/19 06:32:02 PM at 1832 PATIENT NAME: SIA ESCAMILLA ACCOUNT #: [id number] 2019-07-07 06:54:00-00:00 [id number] [facility] [address] [place] [address] PATIENT NAME: SIA ESCAMILLA ADMIT DATE: 07/07/19 ACCOUNT NO: [id number] ROOM NO: [facility] AGE: 78 REPORT TYPE: ELECTROCARDIOGRAM SEX: F ADMITTING PHYSICIAN:Carlos Alberto Cash MD ATTENDING PHYSICIAN:Carlos Alberto Cash MD Order: [id number] Test Reason : A-FIB Test Date/Time Stamp: SatJul 07 2019 06:54:03 Blood Pressure : / mmHG Vent. Rate : 050 BPM Atrial Rate : 050 BPM P-R Int : 194 ms QRS Dur : 106 ms QT Int : 514 ms P-R-T Axes : 047 051 047 degree s QTc Int : 468 ms Sinus bradycardia Otherwise normal ECG When compared with ECG of 08-APR-2019 04:14, No significant change was found Confirmed by BELL EDWARDS ([id number]) on 07/07/2019 12:09:44 PM Referred By: Carlos Alberto Cash Confirmed by:BELL OVERTON at 1209 PATIENT NAME: SIA ESCAMILLA ACCOUNT #: Z [id number] 2019-04-08 12:39:00-00:00 [facility] ([facility]) Discharge Summary REPORT#:[id number] REPORT STATUS: Signed DATE:04/08/19 TIME: 1239 PATIENT: SIA ESCAMILLA UNIT #: [id number] [facility] AGE: 78 SEX: F ATTEND: Mary Villa MD ADM AUTHOR: Sandro Villa MD * ALL edits or amendments must be made on the [employer]/computer document * PCP PCP Discharge to: home General Information Free Text A P: Pt seen and examined in room with daughter at be dside. She's in NSR and is feeling better without lightheadedness. No diarh ea since admission and orthostatic vitals this AM d oes not show hypotension with positional change. d/w Dr Cash, will d/c home on BB and fleca inide, f/u outpt to discuss option for RFA. Orthostatic hypotension resolved, likely tr iggered by hypovolumia Date of admission: Observation Start Date: Date of admission: 04/06/19 Date of discharge: 04/08/19 Discharge diagnosis: - Afib with RVR, likely triggered by dehydration , now in NSR - Orthostratic hypotention, resolving with adeq uate hydration - Diarhea, likely laxative effect, resolved. - S/p Lumbar vertebral fusion surgery, pain con trolled - h/o HTN Hospital course: Pt is 78 yoF with h/o A-flutter s/p RFA 10/[address] Cash, who recently had lumbar fusion surgery last week, transfered from [place] [facility] after a feeling lightheaded and fell at home. Pt related she was given multiple doses of laxative prior to her back s urgery and has been having loose stool post-op. She has been feeling lightheaded when standing for l ast few days and has not been eating or drinking much due to her not f eeling. In [place] [facility], she's noted to be in Afib with RVR 130s, and was given multiple doses of IV diltiazem. She's also noted to have orthostat ic hypotension in [place] as well. Since last night , pt has been in NSR rate 70 s, and is feeling much better. She's fluid hydrated and repeat orthostatic BP has been unremarkable. She's on metoprolol and was started on flecainide this m orning after she's seen by Dr Cash. Per Dr Cash' s recommendation, she's disc harged in stable condition, f/u with him in office 1 -2 weeks Consultants: cardiology Pt. condition on discharge: fair, improved, stab le Med Rec PCP PCP: PCP: Undefined Provider Med Rec Discharge meds: Stop taking the following medications: LISINOPRIL (ZESTRIL) 20 MG TAB 20 MILLIGRAM ORAL TWICE DAILY. HYDROCHLOROTHIAZIDE (HYDRODIURIL) 25 MG TAB 25 MILLIGRAM ORAL DAILY. Continue taking these medications: ZOLPIDEM (AMBIEN) 10 MG TAB 10 MILLIGRAM ORAL BEDTIME. as needed for INSOMN IA CHOLESTYRAMINE/ASPARTAME (QUESTRAN LIGHT) 210 GM POWDER 4 GRAM ORAL EVERY OTHER DAY Instructions: 1/2 PACKET EVERY OTHER DAY NEBIVOLOL (BYSTOLIC) 5 MG TAB 5 MILLIGRAM ORAL BEDTIME. RIVAROXABAN (XARELTO) 15 MG TAB 15 MILLIGRAM ORAL BEDTIME. Instructions: RESTART ON 03/31/19 ROSUVASTATIN (CRESTOR) 10 MG TAB 10 MILLIGRAM ORAL BEDTIME. CHOLECALCIFEROL (VITAMIN D3) (VITAMIN D3) 1,000 UNITS CAP 1,000 UNITS ORAL DAILY. OMEPRAZOLE DR (PriLOSEC) 20 MG TAB.DR 20 MILLIGRAM ORAL DAILY NEEDED. as needed fo r OCC GERD CALCIUM/MAGNESIUM 300/300 MG (CALCIUM/MAGNESIUM 300/300 MG) 1 TAB TAB 1 TABLET ORAL DAILY. OMEGA-3 FATTY ACIDS/FISH OIL (OMEGA 3 1,000 MG S OFTGEL) 1,000 MG CAP 1,000 MILLIGRAM ORAL DAILY. Instructions: RESTART ON 04/02/19 Start taking the following new medications: FLECAINIDE (TAMBOCOR) 50 MG TAB 50 MILLIGRAM ORAL EVERY 12 HOURS. Qty = 60 No Refills Objective VS/I O Last Documented: Result Date Time O2 Delivery Nasal cannula 04/08 745 O2 Flow Rate 2.181502 04/08 745 Pulse Ox 95 04/08 739 B/P 112/70 04/08 739 B/P Mean 84.3 04/08 739 Temp 98.1 04/08 739 Pulse 75 04/08 739 Resp 18 04/08 739 FiO2 28 04/07 2051 24 hour I O ending at 0700: 04/08 0704/07 1900 Intake Total 1350.00 2150.00 Output Total 1250 700 Balance 100.00 1450.00 Intake, IV 1100.00 1300.00 Intake, Oral 250 850 Number 0 Bowel Movements Output, Urine 1250 700 Patient 99.4 kg Weight Weight Bed scale Measurement Method Patient Weight Weight (lb): 219 Weight (oz): 2.23 Weight (kg): 99.400 General appearance: alert, awake Head/Eyes: atraumatic, clear cornea, normal conj unctiva/sclera ENT: moist mucosal membranes Neck: non-tender Cardiovascular: regular rate rhythm, normal hear t sounds, no murmur Respiratory: clear to auscultation, no distress, aerating well, symmetric expansion GI: soft, non-tender, no distention, no mass/org anomegaly Extremities: moves all, no edema-all extremities Results Findings/Data: Laboratory Tests: 04/08 04/07 0543 1250 Chemistry Sodium (137 - 145 MMOL/L) 134 L Potassium (3.5 - 5.1 MMOL/L) 3.6 Chloride (98 - 107 MMOL/L) 99 Carbon Dioxide (22 - 30 MMOL/L) 29 BUN (7 - 17 MG/DL) 14 Creatinine (0.52 - 1.04 MG/DL) 0.60 0.80 Glomerular Filtr Rate > 60 Glucose (74 - 106 MG/DL) 106 Calcium (8.4 - 10.2 MG/DL) 8.0 L Phosphorus (2.5 - 4.5 MG/DL) 3.0 Magnesium (1.6 - 2.3 MG/DL) 1.7 Total Bilirubin (0.2 - 1.3 MG/DL) 0.5 AST (14 - 36 UNITS/L) 26 ALT (9 - 52 UNITS/L) 33 Total Alk Phosphatase (38 - 126 UNITS/L) 71 Total Protein (6.3 - 8.2 G/DL) 5.6 L Albumin (3.5 - 5.0 G/DL) 3.1 L Hematology WBC (3.8 - 9.8 K/MM3) 8.1 RBC (3.58 - 4.97 M/MM3) 3.15 L Hgb (11.2 - 14.9 G/DL) 9.7 L Hct (33.2 - 43.5 %) 30.3 L MCV (80.7 - 99.1 fL) 96 MCH (27.0 - 34.1 pg) 30.8 MCHC (32.2 - 35.7 %) 32.0 L RDW (12.1 - 15.2 %) 14.5 Plt Count (129 - 368 K/MM3) 202 231 MPV (7.4 - 10.4 fl) 8.9 Neut % (Auto) (43 - 75 %) 71.0 Lymph % (Auto) (14 - 44 %) 20.4 Hunt % (Auto) (4 - 13 %) 5.8 Eos % (Auto) (0 - 6 %) 2.2 Baso % (Auto) (0 - 2 %) 0.2 Neut # (Auto) (2.0 - 7.6 K/mm3) 5.76 Lymph # (Auto) (1.0 - 3.8 K/mm3) 1.66 Hunt # (Auto) (0.1 - 0.8 K/mm3) 0.47 Eos # (Auto) (0.0 - 0.2 K/mm3) 0.18 Baso # (Auto) (0.0 - 0.2 K/mm3) 0.02 Immature Gran % (0.0 - 2.0 %) 0.4 Nucleated RBC % (0 - 1.0 %) 0.0 Nucleated RBCs # (Man) (0.0 - 0.1 K/mm3) 0.00 Discharge Instructions Diet: cardiac Activity: as tolerated Additional instructions: F/U DR CASH 1-2 WEEKS Discharge management: greater than 30 mins, face to face encounter Time spent: Time spent with patient (minutes): 35 Follow-up Appointments PCP: PCP: Undefined Provider Attending Physician: Attending Physician: Sandro Villa MD Consulting provider 1: Provider 1: Carlos Alberto Cash MD Specialty: CARDIOVASC DIS Follow up timeframe: In 1-2 weeks Quality Medications Current medication review: I attest that the foregoing medication list in t he medical record is true, accurate, and complete to the best of my knowled ge. Advanced Care Plan 65 or Older Discussed with: patient Discussion included: code status (full code) at 0813 RPT #:[id number] END OF REPORT 2019-04-08 06:56:00-00:00 [facility] ([facility]) Cardiology Progress Note REPORT#:[id number] REPORT STATUS: Signed DATE:04/08/19 TIME: 0656 PATIENT: SIA ESCAMILLA UNIT #: [id number] [facility] AGE: 78 SEX: F ATTEND: Mary Villa MD ADM AUTHOR: Carlos Alberto Cash MD * ALL edits or amendments must be made on the [employer]/computer document * Subjective Chief Complaint: Palpitations Patient reports: No: chest pain, palpitations, shortness of breat h. Objective General VS/I O: 24 hour I O ending at 0700: 04/08 0700 04/07 1900 Intake Total 1350.00 2150.00 Output Total 1250 700 Balance 100.00 1450.00 Intake, IV 1100.00 1300.00 Intake, Oral 250 850 Number 0 Bowel Movements Output, Urine 1250 700 Patient 99.4 kg Weight Weight Bed scale Measurement Method Vital Signs: Date Time Temp Pulse Resp B/P B/P Pulse O2 O2 F low FiO2 Mean Ox Delivery Rate 04/08 0450 60 18 114/66 81.6 100 04/08 0447 60 18 122/70 87.6 100 Nasal cannula 04/08 044 98.1 60 18 116/73 87.6 99 Room air 04/07 2326 97.7 66 18 117/70 85.4 100 Room air 04/07 2242 Nasal 2.481721 cannula 04/07 2051 98 Nasal 2.863689 28 cannula 04/07 1928 98.1 71 18 131/52 78.5 100 Room air 04/07 1701 104/62 76 04/07 1626 98.4 82 17 92/58 69.2 99 Room air 04/07 1209 98.1 75 17 110/65 79.8 100 Nasal cannula 04/07 0816 109 17 91/61 70.7 99 Nasal cannula 04/07 0815 103 17 101/64 76.4 99 Nasal cannula 04/07 0812 98.1 77 17 97/61 73.0 99 Nasal cannula 04/07 0740 Nasal 2.970434 cannula 04/07 0734 99 Nasal 2.319769 28 cannula Patient Weight Weight (lb): 219 Weight (oz): 2.23 Weight (kg): 99.400 Medications: Active Meds + DC'd Last 24 Hrs Rivaroxaban 15 MG BEDTIME PO Calcium Carbonate 1,000 MG ONCE ONE PO (DC) Magnesium Oxide 800 MG ONCE ONE PO (DC) Ocgwd-1-Joqb Ethyl Esters 1 GM DAILY PO (CKD) Cholestyramine Resin 1 PKT DAILY PRN PO (CKD) Tramadol HCl 50 MG Q4H PRN PRN PO Sodium Chloride 500 ML BOLUS ONCE ONE IV (DC) Sodium Chloride 1,000 ML Q10H IV Flecainide Acetate 50 MG Q12HR PO Pantoprazole 40 MG AC BK PO Ipratropium [place] 0.5 MG Q4H PRN PRN NEB (DC) Levalbuterol HCl 1.25 MG RTQ6H PRN NEB Atorvastatin Calcium 20 MG BEDTIME PO Zolpidem Tartrate 10 MG BEDTIME PRN PO Acetaminophen 650 MG Q6H PRN PRN PO Aspirin 81 MG DAILY PO Metoprolol Tartrate 25 MG Q12HR PO Physical Exam General appearance: alert, awake, oriented Head/Eyes: atraumatic, normocephalic ENT: moist mucosal membranes Neck: no JVD Cardiovascular: CV assessment: regular rate and rhythm Respiratory: clear to auscultation, no distress Lower extremity: LE assessment: no edema Musculoskeletal: full range of motion Neuro/PROJECT ESTIMATOR: alert, oriented X 3, CN II-XII intact Skin: dry, intact Psychiatry: normal affect, normal judgment/insig ht, normal mood Results Findings/Data: Laboratory Tests 04/08 04/07 0543 1250 Chemistry Sodium (137 - 145 MMOL/L) 134 L Potassium (3.5 - 5.1 MMOL/L) 3.6 Chloride (98 - 107 MMOL/L) 99 Carbon Dioxide (22 - 30 MMOL/L) 29 BUN (7 - 17 MG/DL) 14 Creatinine (0.52 - 1.04 MG/DL) 0.60 0.80 Glomerular Filtr Rate > 60 Glucose (74 - 106 MG/DL) 106 Calcium (8.4 - 10.2 MG/DL) 8.0 L Phosphorus (2.5 - 4.5 MG/DL) 3.0 Magnesium (1.6 - 2.3 MG/DL) 1.7 Total Bilirubin (0.2 - 1.3 MG/DL) 0.5 AST (14 - 36 UNITS/L) 26 ALT (9 - 52 UNITS/L) 33 Total Alk Phosphatase (38 - 126 UNITS/L) 71 Total Protein (6.3 - 8.2 G/DL) 5.6 L Albumin (3.5 - 5.0 G/DL) 3.1 L Laboratory Tests 04/08 04/07 0543 1250 Hematology WBC (3.8 - 9.8 K/MM3) 8.1 RBC (3.58 - 4.97 M/MM3) 3.15 L Hgb (11.2 - 14.9 G/DL) 9.7 L Hct (33.2 - 43.5 %) 30.3 L MCV (80.7 - 99.1 fL) 96 MCH (27.0 - 34.1 pg) 30.8 MCHC (32.2 - 35.7 %) 32.0 L RDW (12.1 - 15.2 %) 14.5 Plt Count (129 - 368 K/MM3) 202 231 MPV (7.4 - 10.4 fl) 8.9 Neut % (Auto) (43 - 75 %) 71.0 Lymph % (Auto) (14 - 44 %) 20.4 Hunt % (Auto) (4 - 13 %) 5.8 Eos % (Auto) (0 - 6 %) 2.2 Baso % (Auto) (0 - 2 %) 0.2 Neut # (Auto) (2.0 - 7.6 K/mm3) 5.76 Lymph # (Auto) (1.0 - 3.8 K/mm3) 1.66 Hunt # (Auto) (0.1 - 0.8 K/mm3) 0.47 Eos # (Auto) (0.0 - 0.2 K/mm3) 0.18 Baso # (Auto) (0.0 - 0.2 K/mm3) 0.02 Immature Gran % (0.0 - 2.0 %) 0.4 Nucleated RBC % (0 - 1.0 %) 0.0 Nucleated RBCs # (Man) (0.0 - 0.1 K/mm3) 0.00 Laboratory Tests 04/07 1250 Chemistry Magnesium (1.6 - 2.3 MG/DL) 1.7 Diagnosis, Assessment Plan Free Text DxA P Notes Free Text DxA P Notes: IMP: PAF now SR PLAN: Medical rx. D/C planning f/u as outpatient. Consider PVI. at 0729 RPT #:[id number] END OF REPORT 2019-04-08 04:14:00-00:00 [id number] [address] PATIENT NAME: SIA ESCAMILLA ADMIT DATE: 04/06/19 ACCOUNT NO: [id number] ROOM NO: Z.358 AGE: 78 REPORT TYPE: ELECTROCARDIOGRAM SEX: F ADMITTING PHYSICIAN:Sandro Villa MD ATTENDING PHYSICIAN:Sandro Villa MD Order: [id number] Test Reason : PAFIB Test Date/Time Stamp: SatApr 08 2019 04:14:17 Blood Pressure : / mmHG Vent. Rate : 060 BPM Atrial Rate : 060 BPM P-R Int : 172 ms QRS Dur : 096 ms QT Int : 464 ms P-R-T Axes : 031 041 057 degree s QTc Int : 464 ms Normal sinus rhythm Nonspecific ST abnormality Abnormal ECG When compared with ECG of 07-APR-2019 07:49, No significant change was found Confirmed by BELL EDWARDS ([id number]) on 04/08/2019 7:10:37 AM Referred By: Sandro Villa Confirmed by:BELL ABDI at 0710 PATIENT NAME: SIA ESCAMILLA 2019-04-07 17:50:00-00:00 [id number] [place] [address] PATIENT NAME: SIA ESCAMILLA ADMIT DATE: 04/06/19 ACCOUNT NO: [id number] ROOM NO: Z.358 AGE: 78 REPORT TYPE: ECHOCARDIOGRAM SEX: F ADMITTING PHYSICIAN:Sandro Villa MD ATTENDING PHYSICIAN:Sandro Villa MD *[facility]* [address] [place] [address] Transthoracic Echocardiogram Patient: Sia Escamilla Study Date: 04/07/2019 BP: 100 / 66 Location: [facility] URN: [id number] [id number] : 1940 Age: 78 Height: 66 in / 167.6 cm Gender: F Weight: 174 .6 lb / 79.4 kg BMI/BSA: 28.2 kg/m 2 / 1.94 m 2 *Ordering Physician: * Sandro Villa *Interpreting Physician: * Bell Edwards MD *Extruding Machine Operator: * Shaunna Kumari RDCS, RVT Indications: AFIB WITH RVR. Study data: Transthoracic echocardiogram. Proced ure: Transthoracic echocardiography was performed. Images were obta ined using a [employer] cardiac ultrasound machine. Image quality was fair. Comp lete 2D, complete spectral Doppler, and color Doppler. Location: [facility]. Patient status: Inpatient. Patient room number: 358. Ovidio dy status: Routine. Findings Left ventricle: The cavity size is normal. Wall thickness is normal. The estimated ejection fraction is 60-64%. Wall motion is normal; there are no regional wall motion abnormalities. Doppl er parameters are consistent with abnormal left ventricular relaxa tion (grade 1 diastolic dysfunction). PATIENT NAME: SIA ESCAMILLA ACCOUNT #: Z [id number] Right ventricle: The cavity size is normal. Syst olic function is normal. Systolic pressure is within the normal r ramon. The estimated peak pressure is 39 mm Hg. Ventricular septum: The ventricular septum is no rmal. Left atrium: The atrium is normal in size. Right atrium: The atrium is normal in size. Atrial septum: No defect or patent foramen ovale is identified. Aorta: There is mild atheromatous plaque. Aortic valve: The valve is trileaflet. Thickenin g, consistent with sclerosis. Transvalvular velocity is within the normal range. There is no evidence of stenosis. There is mild regurgita tion. Mitral valve: The leaflets are mildly thickened. There is mild regurgitation. Tricuspid valve: The leaflets are normal thickne ss. There is mild-moderate regurgitation. Pulmonic valve: Not well visualized. There is no significant regurgitation. Pericardium: There is no pericardial effusion. N o evidence of pleural fluid accumulation. Systemic veins: Inferior vena cava: The vessel is normal in size . Measurements Left ventricle Value Ref Left atrium Value Ref SANJU, LAX 4.4 cm 3.8 - Area ES, A4C 14 cm 2 <=20 5.2 ESD, LAX 2.9 cm 2.2 - Right atrium Value Ref 3.5 Area, ES, A4C 14 cm 2 10 - 18 ESD/bsa, LAX 1.5 cm/m 2 1.3 - 2.1 Aortic valve Value Ref FS, LAX 33 % 27 - 45 Leaflet sep, MM 2.02 cm ------- ESD/bsa major ax, 2.8 cm/m 2 -------- Peak v, S 1.11 m/sec ------- A4C Mean v, S 0.75 m/sec ------- SANJU/bsa minor ax, 2.8 cm/m 2 -------- VTI, S 23.4 cm ------- A4C Mean grad, S 2.6 mm Hg ------- SANJU major ax, A2C 6.6 cm -------- Peak grad, S 4.9 mm Hg ------- ESD major ax, A2C 4.8 cm -------- LVOT/AV, VTI ratio 0.89 ------- SANJU/bsa major ax, 3.4 cm/m 2 -------- SAAD, VTI 2.61 cm 2 ------- A2C LVOT/AV, Vpeak ratio PATIENT NAME: SIA ESCAMILLA ACCOUNT #: Z [id number] 0.9 ------- ESD/bsa major ax, 2.5 cm/m 2 -------- SAAD, Vmax 2.65 cm 2 ------- A2C PW, ED 0.9 cm 0.6 - Mitral valve Value Ref 0.9 Peak E 0.66 m/sec ------- PW, ES 1.1 cm -------- Peak A 0.9 m/sec ------- IVS/PW, ED 0.87 -------- Mean v, D 0.57 m/sec ------- EF 61 % 54 - 74 VTI leaflet coapt 26.1 cm ------- IVRT 128 ms -------- Decel time 210 ms ------- E', lat vero, TDI 7.0 cm/sec >=10.0 PHT 121 ms ------- E/e', lat vero, TDI 9 -------- Mean grad, D 1.4 mm Hg ------- E', med vero, TDI 6.0 cm/sec >=7.0 Peak grad, D 3.5 mm Hg ------- E/e', med vero, TDI 11 -------- Peak E/A ratio 0.73 ------- E', avg, TDI 6.5 cm/sec -------- MVA, PHT 1.8 cm 2 ------- E/e', avg, TDI 10 <=14 MR peak v 3.06 m/sec ------- LVOT Value Ref Pulmonic valve Value Ref Diam, S 1.93 cm -------- RI v, ED 0.68 m/sec ------- Area 2.9 cm 2 -------- Peak leslie, S 1 m/sec -------- Tricuspid valve Value Ref Mean leslie, S 0.66 m/sec -------- TR peak v 2.71 m/sec <=2.8 VTI, S 20.8 cm -------- Peak RV-RA grad, S 29 mm Hg ------- Peak grad, S 4 mm Hg -------- Mean grad, S 4 mm Hg -------- Aortic root Value Ref SV 61 ml -------- Root diam, ED MM 3.19 cm ------- Qs 4.18 L/min -------- Qs/bsa 2.1 L/(min-m 2) -------- Pulmonary arter y Value Ref SV/bsa 31 ml/m 2 -------- Pressure, S 34.4 mm Hg ------- Ventricular septum Value Ref Systemic veins Value Ref IVS, ED 0.8 cm 0.6 - Estimated CVP PATIENT NAME: SIA ESCAMILLA ACCOUNT #: Z [id number] 10 mm Hg ------- 0.9 IVS, ES 1.3 cm -------- Right ventricle Value Ref SANJU, LAX 2.2 cm -------- Pressure, S 39 mm Hg -------- RVOT Value Ref Peak v, S 1.01 m/sec -------- Peak grad, S 4 mm Hg -------- Conclusions Summary: 1. Left ventricle: The cavity size is normal. Wa ll thickness is normal. The estimated ejection fraction is 60-64%. Wall motion is normal; there are no regional wall motion abnormalities . Doppler parameters are consistent with abnormal left ventricular relaxation (grade 1 diastolic dysfunction). 2. Aortic valve: There is mild regurgitation. 3. Mitral valve: There is mild regurgitation. 4. Tricuspid valve: There is mild-moderate regur gitation. Prepared and electronically signed by Bell Edwards MD 04/07/2019 17:50 at 1751 PATIENT NAME: SIA ESCAMILLA ACCOUNT #: Z [id number] 2019-04-07 07:49:00-00:00 [id number] [place] [id number] PATIENT NAME: SIA ESCAMILLA ADMIT DATE: 04/06/19 ACCOUNT NO: [id number] ROOM NO: Z.358 AGE: 78 REPORT TYPE: ELECTROCARDIOGRAM SEX: F ADMITTING PHYSICIAN:Sandro Villa MD ATTENDING PHYSICIAN:Sandro Villa MD Order: [id number] Test Reason : PAFIB Test Date/Time Stamp: SatApr 07 2019 07:49:45 Blood Pressure : / mmHG Vent. Rate : 077 BPM Atrial Rate : 077 BPM P-R Int : 146 ms QRS Dur : 094 ms QT Int : 418 ms P-R-T Axes : 079 070 063 degree s QTc Int : 473 ms Normal sinus rhythm Nonspecific ST abnormality Abnormal ECG When compared with ECG of 21-OCT-2018 06:53, premature atrial complexes are no longer present ST now depressed in Anterior leads Nonspecific T wave abnormality no longer evident in Lateral leads Confirmed by BELL EDWARDS ([id number]) on 04/07/2019 7:59:53 AM Referred By: Sandro Villa Confirmed by:BELL ABDI at 0800 PATIENT NAME: SIA ESCAMILLA ACCOUNT #: [id number] 2019-04-07 07:49:00-00:00 [id number] [place] [id number] PATIENT NAME: SIA ESCAMILLA ADMIT DATE: 04/06/19 ACCOUNT NO: [id number] ROOM NO: Z.358 AGE: 78 REPORT TYPE: ELECTROCARDIOGRAM SEX: F ADMITTING PHYSICIAN:Sandro Villa MD ATTENDING PHYSICIAN:Sandro Villa MD Order: [id number] Test Reason : PAFIB Test Date/Time Stamp: SatApr 07 2019 07:49:45 Blood Pressure : / mmHG Vent. Rate : 077 BPM Atrial Rate : 077 BPM P-R Int : 146 ms QRS Dur : 094 ms QT Int : 418 ms P-R-T Axes : 079 070 063 degree s QTc Int : 473 ms Normal sinus rhythm Nonspecific ST abnormality Abnormal ECG When compared with ECG of 21-OCT-2018 06:53, premature atrial complexes are no longer present ST now depressed in Anterior leads Nonspecific T wave abnormality no longer evident in Lateral leads Confirmed by BELL EDWARDS ([id number]) on 04/07/2019 5:52:56 PM Referred By: Sandro Villa Confirmed by:BELL ABDI at 1753 PATIENT NAME: SIA ESCAMILLA ACCOUNT #: [id number] 2019-04-07 07:40:00-00:00 [id number] [place] [address] PATIENT NAME: SIA ESCAMILLA ADMIT DATE: 04/06/19 ACCOUNT NO: [id number] ROOM NO: Z.358 AGE: 78 REPORT TYPE: CONSULTATION REPORT SEX: F ADMITTING PHYSICIAN:Sandro Villa MD ATTENDING PHYSICIAN:Sandro Villa MD CONSULTATION DATE: 04/07/2019 CONSULTING PHYSICIAN: Carlos Alberto Cash MD REFERRING PHYSICIAN: Dr. Mariee. REASON FOR CONSULTATION: We are asked to evaluat e this patient for atrial fibrillation. HISTORY OF PRESENT ILLNESS: This is a 78-year-ol d female with a history of hypertension, prediabetes, atrial flutte r, status post ablation in October 2018. She was brought to the [facility] a fter developing weakness with dizziness and collapsing. There was no loss of c onsciousness. She began feeling poorly several days prior to presentatio n. She had orthostatic dizziness. She underwent L4, L5, S1 fusion appro ximately 2 weeks ago. She had been doing well, ambulating. Currently, she has no chest pain. She feels somewhat better. She was noted in [place] [facility] ER to have atrial fibrillation with rapid ventricular response. She converted to sinus rhythm with medical therapy. PAST MEDICAL HISTORY: 1. Atrial flutter, status post atrial flutter ab lation 10/21/2018. 2. Hypertension. PAST SURGICAL HISTORY: Status post L4, L5, S1 fu danielle. HOME MEDICATIONS: Calcium, vitamin D3, cholestyr amine, hydrochlorothiazide, lisinopril, nebivolol, Xarelto, Crestor, and Amb ien. ALLERGIES: PENICILLIN AND CODEINE. FAMILY HISTORY: Positive for stroke in her mothe r and heart disease in her father, who at age 55. SOCIAL HISTORY: No tobacco. Occasional alcohol. REVIEW OF SYSTEMS: CONSTITUTIONAL: No complaints of fever or chills . ENMT: No complaints of headache. EYES: No complaints of blurred vision. RESPIRATORY: No complaints of shortness of breat h. CARDIOVASCULAR: No complaints of chest pain. Rap id palpitations prior to conversion to sinus rhythm. PATIENT NAME: SIA ESCAMILLA ACCOUNT #: Z [id number] GASTROINTESTINAL: No complaints of nausea or vom iting. GENITOURINARY: No complaints of urinary frequenc y or dysuria. MUSCULOSKELETAL: No complaints of joint pain. SKIN: No complaints of skin rash. NEUROLOGIC: Near syncopal episodes with atrial f ibrillation. PHYSICAL EXAMINATION: GENERAL: Well-nourished female, in no acute dist ress. VITAL SIGNS: Blood pressure 100/66, pulse 76, re spiratory rate 18, O2 saturations 98%. ENMT: Atraumatic, normocephalic. RESPIRATORY: Normal effort. LUNGS: Clear to auscultation bilaterally. CARDIOVASCULAR: Normal S1 and S2. No S3 or S4. NECK: JVP is normal. There are no carotid bruits . NEUROLOGIC: Cranial nerves II through XII are in tact. No focal motor deficits noted. LABORATORY DATA: White blood cell count 7.2, hem oglobin 11.3, and platelets 170. Sodium 135, potassium 3.7, chloride 104, CO2 of 24, BUN 22, creatinine 1, and glucose 112. Magnesium 2.1. INR 1. DIAGNOSTIC STUDIES: Admission electrocar diogram shows atrial fibrillation with rapid ventricular response. Telemetry now shows sinus rhythm. IMPRESSION: 1. Atrial fibrillation with rapid ventri cular response, now converted to sinus rhythm. 2. History of atrial flutter, status post ablati on, October 2018. 3. Hypertension. 4. Status post L4, L5, S1 fusion approximately 2 weeks ago. RECOMMENDATIONS: 1. Continue home medications and add flecainide. 2. Review 2D echocardiogram. Dictated By: Carlos Alberto Cash MD WT: CON:Z.HIM/PEPGR/NTS Conf#: [id number]/DID#: [id number] Authenticated by Carlos Alberto Cash MD On 04/08/20 07:03:09 AM at 0703 PATIENT NAME: SIA ESCAMILLA ACCOUNT #: [id number] 2019-04-07 00:20:00-00:00 [facility] ([facility]) Hospitalist History Physical REPORT#:[id number] REPORT STATUS: Signed DATE:04/07/19 TIME: 002 PATIENT: SIA ESCAMILLA UNIT #: [id number] ROOM/BED: [address] : 41 AGE: 78 SEX: F ATTEND: Mary Villa MD ADM AUTHOR: Henrik Ruiz MD R1 * ALL edits or amendments must be made on the Get[employer]/computer document * Henrik Ruiz 04/07/19 0020: History of Present Illness HPI Chief complaint: hypotension, afib, s/p fall PCP: PCP: Undefined Provider HPI: Patient is a 78 y/o f with p mhx of Afib s/p abilation in october by Dr. cash on xarelto, HTN, prediabetes, anxiety, insomnia, an d seasonal allergies who presents s/p from orthostatic hypotensio n and afib. Pt reports having L4-L5-S1 fusion surgery at [facility] 2 we eks ago.. Reports since yesterday, she has been having dizzines that's worse during sit ting and standing. Today, she reports going to the bathroom and feeling dizzy which lead her to fall on her back. Prior to her fall, she experienced dizzine ss and diaphoresis. She was picked up by EMS and was sravani en to [facility]. ECG was c/w Afib with a rate of 110 and was given diltiazem. Repeat ECG c/w normal s inus rhythem and rate of 82. Orthostatic SBP 150 while ly ing supine and 101 while sitting with dizziness. CXR with no signs of acute cardi opulmonary dz. She was transferred here to f/u with Dr. cash. In addition pt r eports 4 day hx of watery diarrhea occuring 4 times per day. She denies any nausea, vomiting, fevers , chills, chest pain or shortness of breath. [facility] Labs reviewed: Na 136, K 4.0, gluc 127, Cr 0.88, BUN 19, WBC 9.75, hgb 11.9, UA negative, pro-bnp 208, tropon inI 0.003. History Past surgical history: Reports: (L4-L5-S1 fus ion). Alcohol use: Denies EtOH use Drug use: Denies recreational drugs Smoking status for patients 13 years old or olde r: Never Smoker Medication/Allergy-Vaccine Hx Home Medications: CALCIUM/MAGNESIUM 300/300 MG 1 TAB PO DAILY CHOLECALCIFEROL (VITAMIN D3) (VITAMIN D3) 1,000 UNITS PO DAILY CHOLESTYRAMINE/ASPARTAME (QUESTRAN LIGHT) 4 GM P O QODAY HYDROCHLOROTHIAZIDE (HYDRODIURIL) 25 MG PO DAILY LISINOPRIL (ZESTRIL) 20 MG PO BID NEBIVOLOL (BYSTOLIC) 5 MG PO BEDTIME OMEGA-3 FATTY ACIDS/FISH OIL (OMEGA 3 1,000 MG S OFTGEL) 1,000 MG PO DAILY OMEPRAZOLE DR (PriLOSEC) 20 MG PO DAILY PRN PRN OCC GERD RIVAROXABAN (XARELTO) 15 MG PO BEDTIME ROSUVASTATIN (CRESTOR) 10 MG PO BEDTIME ZOLPIDEM (AMBIEN) 10 MG PO BEDTIME PRN INSOMNIA Allergies: Coded Allergies: Penicillins (Severe, VOMITING 11/16/16) codeine (Severe, HALLUCINATIONS 11/16/16) Review of Systems Constitutional: Denies: chills, fatigue, fever. Skin: Denies: abrasion, bruising, rash, swelling. Respiratory: Denies: pleurisy, SOB. Cardiovascular: Denies: chest pain, edema. GI: Reports: diarrhea. Denies: abdominal pain, const ipation, nausea, vomiting. : Denies: dysuria, flank pain. Musculoskeletal: Denies: joint pain. Heme: Denies: bleeding, bruising. Neuro: Reports: lightheaded. Denies: headache, syncope, weakness. Psych: Denies: depression. Objective General VS/I O: Vital Signs: Date Time Temp Pulse Resp B/P B/P Pulse O2 O2 F low FiO2 Mean Ox Delivery Rate 04/06 2234 97.5 81 18 117/74 88.4 97 Room air Patient Weight Weight (lb): Weight (oz): Weight (kg): Medications: Active Meds + DC'd Last 24 Hrs Rivaroxaban 15 MG BEDTIME PO Pantoprazole 40 MG AC BK PO Ipratropium [place] 0.5 MG Q4H PRN PRN NEB Levalbuterol HCl 1.25 MG RTQ6H PRN NEB Atorvastatin Calcium 20 MG BEDTIME PO Zolpidem Tartrate 10 MG BEDTIME PRN PO Acetaminophen 650 MG Q6H PRN PRN PO Aspirin 81 MG DAILY PO Metoprolol Tartrate 25 MG Q12HR PO Physical Exam General appearance: alert, awake, oriented Head/Eyes: atraumatic, EOMI, normocephalic Cardiovascular: normal heart sounds Respiratory: aerating well, no distress Abdomen: non-tender, normal bowel sounds, soft, no distention Genitourinary: no flank pain Extremities: moves all, no edema Skin: no rash Diagnosis, Assessment Plan Free Text DxA P Notes Free Text DxA P Notes: Patient is a 78 y/o f with p mhx of Afib s/p abilation in october by Dr. cash on xarelto, HTN, prediabetes, anxiety, insomnia, an d seasonal allergies who presents s/p from orthostatic hypotensio n and afib. Pt reports having L4-L5-S1 fusion surgery at [facility] 2 we eks ago.. Reports since yesterday, she has been having dizzines that's worse during sit ting and standing. Today, she reports going to the bathroom and feeling dizzy which lead her to fall on her back. Prior to her fall, she experienced dizzine ss and diaphoresis. She was picked up by EMS and was sravani en to [facility]. ECG was c/w Afib with a rate of 110 and was given diltiazem. Repeat ECG c/w normal s inus rhythem and rate of 82. Orthostatic SBP 150 while ly ing supine and 101 while sitting with dizziness. CXR with no signs of acute cardi opulmonary dz. She was transferred here to f/u with Dr. cash. In addition pt r eports 4 day hx of watery diarrhea occuring 4 times per day. She denies any nausea, vomiting, fevers , chills, chest pain or shortness of breath. [facility] Labs reviewed: Na 136, K 4.0, gluc 127, Cr 0.88, BUN 19, WBC 9.75, hgb 11.9, UA negative, pro-bnp 208, tropon inI 0.003. Problem List: 1-Afib s/p abalation 2-Ortostatic hypotension 3-Diarrhea 4-HTN 5-Prediabetes 6-Anxiety 7-Insomnia Assessment and plan: 1-Afib -s/p ablation with Dr. Cash in 09/23. Current ly on xarelto. ECG was c/w Afib with a rate of 110 and was given diltiazem. Repeat ECG c/w normal sinus rhythem and rate of 82. Started metoprolol 25mg q 12hours. Dr. Cash consulted. Echo ordered. Will monitor. 2-Orthostatic Hypotension -could possibly be due to volume depletion from recent hx of diarrhea. Orthostatics checked at [facility] and c/ SBP 150 while lying supine and 101 while sitting with dizziness IVFs started. Will cont to check orthostatics. Check I's and O's. 3-Diarrhea: -Current hospitalization for spine surgery. Rep orts being placed on a medication to help move her bowels. Possibly 2/2 stool softner use. Will get stool clx to rule out c-dif due to recent hospitalization 4-Hypertension -currently blood pressure controlled. Will hold lisinopril and diuretics for now to prevent worsening of hypotension. 5-Prediabetes: -Glucose at 127. Will monitor. 6-Anxiety: -Currently controlled 7-Insomnia: -cont. zolpidem 8-Other: -DVT PPX: SCDs -GI PPX: pepcid -Diet: cardiac -Activity: fall precautions -PT/OT ordered Sandro VillaDasha 04/07/19 1627: Diagnosis, Assessment Plan Free Text DxA P Notes Free Text DxA P Notes: Pt seen and examined with dr. Joseph ohara nd agree with her assessment and plan. Pt is 78 yoF with h/o A-flutter s/p RFA 10/[address] Cash, who recently had lumbar fusion surgery last week, transfered from [facility] after a feeling lightheaded and fell at home. Pt related she was given multiple doses of laxative prior to her back s urgery and has been having loose stool post-op. She has been feeling lightheaded when standing for l ast few days and has not been eating or drinking much due to her not f eeling. In [facility] ER, she's noted to be in Afib with RVR 130s, and was given multiple doses of IV diltiazem. She's also noted to have orthostat ic hypotension in [place] as well. Since last night , pt has been in NSR rate 70 s, and is feeling much better. She's fluid hydrated and repeat orthostatic BP has been unremarkable. She's on metoprolol and was started on flecainide this morning after she's s een by Dr Cash. - Afib with RVR, likely triggered by dehydratio n, now in NSR - Orthostratic hypotention, resolving with adeq uate hydration - Diarhea, likely laxative effect, resolved. - S/p Lumbar vertebral fusion surgery, pain con trolled - h/o HTN, BOP borderline low, will monitor on current meds Quality Medications Current medication review: I attest that the foregoing medication list in t he medical record is true, accurate, and complete to the best of my knowled ge. Advanced Care Plan 65 or Older Discussed with: patient Discussion included: code status (full code) at 1940 RPT #:[id number] END OF REPORT 2019-04-07 00:20:00-00:00 [facility] ([facility]) Hospitalist History Physical REPORT#:[id number] REPORT STATUS: Signed DATE:04/07/19 TIME: 002 PATIENT: SIA ESCAMILLA UNIT #: [id number] ROOM/BED: [address] : 41 AGE: 78 SEX: F ATTEND: Mary Villa MD ADM AUTHOR: Henrik Ruiz MD R1 * ALL edits or amendments must be made on the Get[employer]/computer document * Henrik Ruiz 04/07/19 0020: History of Present Illness HPI Chief complaint: hypotension, afib, s/p fall PCP: PCP: Undefined Provider HPI: Patient is a 78 y/o f with p mhx of Afib s/p abilation in october by Dr. cash on xarelto, HTN, prediabetes, anxiety, insomnia, an d seasonal allergies who presents s/p from orthostatic hypotensio n and afib. Pt reports having L4-L5-S1 fusion surgery at [facility] 2 we eks ago.. Reports since yesterday, she has been having dizzines that's worse during sit ting and standing. Today, she reports going to the bathroom and feeling dizzy which lead her to fall on her back. Prior to her fall, she experienced dizzine ss and diaphoresis. She was picked up by EMS and was sravani en to [facility]. ECG was c/w Afib with a rate of 110 and was given diltiazem. Repeat ECG c/w normal s inus rhythem and rate of 82. Orthostatic SBP 150 while ly ing supine and 101 while sitting with dizziness. CXR with no signs of acute cardi opulmonary dz. She was transferred here to / with Dr. cash. In addition pt r eports 4 day hx of watery diarrhea occuring 4 times per day. She denies any nausea, vomiting, fevers , chills, chest pain or shortness of breath. [facility] Labs reviewed: Na 136, K 4.0, gluc 127, Cr 0.88, BUN 19, WBC 9.75, hgb 11.9, UA negative, pro-bnp 208, tropon inI 0.003. History Past surgical history: Reports: (L4-L5-S1 fus ion). Alcohol use: Denies EtOH use Drug use: Denies recreational drugs Smoking status for patients 13 years old or olde r: Never Smoker Medication/Allergy-Vaccine Hx Allergies: Coded Allergies: Penicillins (Severe, VOMITING 11/16/16) codeine (Severe, HALLUCINATIONS 11/16/16) Review of Systems Constitutional: Denies: chills, fatigue, fever. Skin: Denies: abrasion, bruising, rash, swelling. Respiratory: Denies: pleurisy, SOB. Cardiovascular: Denies: chest pain, edema. GI: Reports: diarrhea. Denies: abdominal pain, const ipation, nausea, vomiting. : Denies: dysuria, flank pain. Musculoskeletal: Denies: joint pain. Heme: Denies: bleeding, bruising. Neuro: Reports: lightheaded. Denies: headache, syncope, weakness. Psych: Denies: depression. Objective General VS/I O: Vital Signs: Date Time Temp Pulse Resp B/P B/P Pulse O2 O2 F low FiO2 Mean Ox Delivery Rate 04/06 2234 97.5 81 18 117/74 88.4 97 Room air Patient Weight Weight (lb): Weight (oz): Weight (kg): Medications: Active Meds + DC'd Last 24 Hrs Rivaroxaban 15 MG BEDTIME PO Pantoprazole 40 MG AC BK PO Ipratropium [place] 0.5 MG Q4H PRN PRN NEB Levalbuterol HCl 1.25 MG RTQ6H PRN NEB Atorvastatin Calcium 20 MG BEDTIME PO Zolpidem Tartrate 10 MG BEDTIME PRN PO Acetaminophen 650 MG Q6H PRN PRN PO Aspirin 81 MG DAILY PO Metoprolol Tartrate 25 MG Q12HR PO Physical Exam General appearance: alert, awake, oriented Head/Eyes: atraumatic, EOMI, normocephalic Cardiovascular: normal heart sounds Respiratory: aerating well, no distress Abdomen: non-tender, normal bowel sounds, soft, no distention Genitourinary: no flank pain Extremities: moves all, no edema Skin: no rash Diagnosis, Assessment Plan Free Text DxA P Notes Free Text DxA P Notes: Patient is a 78 y/o f with p mhx of Afib s/p abilation in october by Dr. cash on xarelto, HTN, prediabetes, anxiety, insomnia, an d seasonal allergies who presents s/p from orthostatic hypotensio n and afib. Pt reports having L4-L5-S1 fusion surgery at [facility] 2 we eks ago.. Reports since yesterday, she has been having dizzines that's worse during sit ting and standing. Today, she reports going to the bathroom and feeling dizzy which lead her to fall on her back. Prior to her fall, she experienced dizzine ss and diaphoresis. She was picked up by EMS and was sravani en to [facility]. ECG was c/w Afib with a rate of 110 and was given diltiazem. Repeat ECG c/w normal s inus rhythem and rate of 82. Orthostatic SBP 150 while ly ing supine and 101 while sitting with dizziness. CXR with no signs of acute cardi opulmonary dz. She was transferred here to f/u with Dr. cash. In addition pt r eports 4 day hx of watery diarrhea occuring 4 times per day. She denies any nausea, vomiting, fevers , chills, chest pain or shortness of breath. [facility] Labs reviewed: Na 136, K 4.0, gluc 127, Cr 0.88, BUN 19, WBC 9.75, hgb 11.9, UA negative, pro-bnp 208, tropon inI 0.003. Problem List: 1-Afib s/p abalation 2-Ortostatic hypotension 3-Diarrhea 4-HTN 5-Prediabetes 6-Anxiety 7-Insomnia Assessment and plan: 1-Afib -s/p ablation with Dr. Cash in 09/23. Current ly on xarelto. ECG was c/w Afib with a rate of 110 and was given diltiazem. Repeat ECG c/w normal sinus rhythem and rate of 82. Started metoprolol 25mg q 12hours. Dr. Cash consulted. Echo ordered. Will monitor. 2-Orthostatic Hypotension -could possibly be due to volume depletion from recent hx of diarrhea. Orthostatics checked at [facility] and c/ SBP 150 while lying supine and 101 while sitting with dizziness IVFs started. Will cont to check orthostatics. Check I's and O's. 3-Diarrhea: -Current hospitalization for spine surgery. Rep orts being placed on a medication to help move her bowels. Possibly 2/2 stool softner use. Will get stool clx to rule out c-dif due to recent hospitalization 4-Hypertension -currently blood pressure controlled. Will hold lisinopril and diuretics for now to prevent worsening of hypotension. 5-Prediabetes: -Glucose at 127. Will monitor. 6-Anxiety: -Currently controlled 7-Insomnia: -cont. zolpidem 8-Other: -DVT PPX: SCDs -GI PPX: pepcid -Diet: cardiac -Activity: fall precautions -PT/OT ordered Sandro Villa 04/07/19 1627: History Medication/Allergy-Vaccine Hx Home Medications: CALCIUM/MAGNESIUM 300/300 MG 1 TAB PO DAILY CHOLECALCIFEROL (VITAMIN D3) (VITAMIN D3) 1,000 UNITS PO DAILY CHOLESTYRAMINE/ASPARTAME (QUESTRAN LIGHT) 4 GM P O QODAY FLECAINIDE (TAMBOCOR) 50 MG PO Q12HR NEBIVOLOL (BYSTOLIC) 5 MG PO BEDTIME OMEGA-3 FATTY ACIDS/FISH OIL (OMEGA 3 1,000 MG S OFTGEL) 1,000 MG PO DAILY OMEPRAZOLE DR (PriLOSEC) 20 MG PO DAILY PRN PRN OCC GERD RIVAROXABAN (XARELTO) 15 MG PO BEDTIME ROSUVASTATIN (CRESTOR) 10 MG PO BEDTIME ZOLPIDEM (AMBIEN) 10 MG PO BEDTIME PRN INSOMNIA Discontinued Medications HYDROCHLOROTHIAZIDE (HYDRODIURIL) 25 MG PO DAILY LISINOPRIL (ZESTRIL) 20 MG PO BID Diagnosis, Assessment Plan Free Text DxA P Notes Free Text DxA P Notes: Pt seen and examined with dr. Joseph ohara nd agree with her assessment and plan. Pt is 78 yoF with h/o A-flutter s/p RFA 10/[address] Cash, who recently had lumbar fusion surgery last week, transfered from [place] [facility] after a feeling lightheaded and fell at home. Pt related she was given multiple doses of laxative prior to her back s urgery and has been having loose stool post-op. She has been feeling lightheaded when standing for l ast few days and has not been eating or drinking much due to her not f eeling. In [place] [facility], she's noted to be in Afib with RVR 130s, and was given multiple doses of IV diltiazem. She's also noted to have orthostat ic hypotension in [place] as well. Since last night , pt has been in NSR rate 70 s, and is feeling much better. She's fluid hydrated and repeat orthostatic BP has been unremarkable. She's on metoprolol and was started on flecainide this morning after she's s een by Dr Cash. - Afib with RVR, likely triggered by dehydratio n, now in NSR - Orthostratic hypotention, resolving with adeq uate hydration - Diarhea, likely laxative effect, resolved. - S/p Lumbar vertebral fusion surgery, pain con trolled - h/o HTN, BOP borderline low, will monitor on current meds Quality Medications Current medication review: I attest that the foregoing medication list in [facility] medical record is true, accurate, and complete to the best of my knowled ge. Advanced Care Plan 65 or Older Discussed with: patient Discussion included: code status (full code) at 1940 at 1741 RPT #:[id number] END OF REPORT 2019-03-29 10:03:00-00:00 [facility] ([facility]) Discharge Summary REPORT#:[id number] REPORT STATUS: Signed DATE:03/29/19 TIME: 1003 PATIENT: SIA ESCAMILLA UNIT #: [id number] [facility] AGE: 78 SEX: F ATTEND: Devon Wooten MD ADM AUTHOR: Sadiq Mckinney * ALL edits or amendments must be made on the el ectronic/computer document * General Information Date of discharge: 03/29/19 Hospital course: Surgeon: MD [employer] Piece Assembler: JOVANI Mckinney Preadmission Diagnosis: Lumbar Radiculopathy Postadmission Diagnosis: Lumbar Radiculopathy Procedure Preformed: Posterior Lumbar Fusion L4- S1 Significant Findings: None Complications: None The patient was taken from the OR to the Recover y room in stable condition Hospital Course: The patient was admitted to the hospital for the aforementioned procedure. Postoperative course was unr emarkable. The patient was up and ambulatory, taking well a regular diet and voiding without difficulty. Labs were stable. Incision was clean and dry. Patient was to be discharged home and begin a walking exercise program. Patient was given general prec autions for bending, lifting, twisting and turning. Infection and neurological warnings were given. The patient was given instructions for bathing, brace wear, wound care and to return to clinic f or follow up in 3 weeks. Discharge medications include pain medicine, mus andrey relaxers, steroids and antibiotics. The patient was to call the office with any problems or difficulties post the time of discharge to home. Intraoperative findings and expected outcome were discussed. Potential probl ems at other levels were discussed as well. The patient understood each o f these things at the time of discharge to home. Med Rec Med Rec Discharge meds: Continue taking these medications: LISINOPRIL (ZESTRIL) 20 MG TAB 20 MILLIGRAM ORAL TWICE DAILY. ZOLPIDEM (AMBIEN) 10 MG TAB 10 MILLIGRAM ORAL BEDTIME. as needed for INSOMN IA CHOLESTYRAMINE/ASPARTAME (QUESTRAN LIGHT) 210 GM POWDER 4 GRAM ORAL EVERY OTHER DAY Instructions: 1/2 PACKET EVERY OTHER DAY NEBIVOLOL (BYSTOLIC) 5 MG TAB 5 MILLIGRAM ORAL BEDTIME. ROSUVASTATIN (CRESTOR) 10 MG TAB 10 MILLIGRAM ORAL BEDTIME. HYDROCHLOROTHIAZIDE (HYDRODIURIL) 25 MG TAB 25 MILLIGRAM ORAL DAILY. CHOLECALCIFEROL (VITAMIN D3) (VITAMIN D3) 1,000 UNITS CAP 1,000 UNITS ORAL DAILY. OMEPRAZOLE DR (PriLOSEC) 20 MG TAB.DR 20 MILLIGRAM ORAL DAILY NEEDED. as needed fo r OCC GERD CALCIUM/MAGNESIUM 300/300 MG (CALCIUM/MAGNESIUM 300/300 MG) 1 TAB TAB 1 TABLET ORAL DAILY. The following medications have been changed: Old: RIVAROXABAN (XARELTO) 15 MILLIGRAM ORAL BEDTIME. New: RIVAROXABAN (XARELTO) 15 MG TAB 15 MILLIGRAM ORAL BEDTIME. Instructions: RESTART ON 03/31/19 Old: OMEGA-3 FATTY ACIDS/FISH OIL (OMEGA 3 1,000 MG S OFTGEL) 1,000 MILLIGRAM ORAL DAILY. New: OMEGA-3 FATTY ACIDS/FISH OIL (OMEGA 3 1,000 MG S OFTGEL) 1,000 MG CAP 1,000 MILLIGRAM ORAL DAILY. Instructions: RESTART ON 04/02/19 Electronically Signed by Sadiq Mckinney on at 1003 RPT #:[id number] END OF REPORT 2019-03-29 10:03:00-00:00 [facility] ([facility]) Discharge Summary REPORT#:[id number] REPORT STATUS: Signed DATE:03/29/19 TIME: 1003 PATIENT: SIA ESCAMILLA UNIT #: [id number] ROOM/BED: [address] : [address] AGE: 78 SEX: F ATTEND: Devon Wooten MD ADM AUTHOR: Sadiq Mckinney * ALL edits or amendments must be made on the [employer]/computer document * General Information Date of discharge: 03/29/19 Hospital course: Surgeon: MD [employer] Piece Assembler: JOVANI Mckinney Preadmission Diagnosis: Lumbar Radiculopathy Postadmission Diagnosis: Lumbar Radiculopathy Procedure Preformed: Posterior Lumbar Fusion L4- S1 Significant Findings: None Complications: None The patient was taken from the OR to the Recover y room in stable condition Hospital Course: The patient was admitted to the hospital for the aforementioned procedure. Postoperative course was unr emarkable. The patient was up and ambulatory, taking well a regular diet and voiding without difficulty. Labs were stable. Incision was clean and dry. Patient was to be discharged home and begin a walking exercise program. Patient was given general prec autions for bending, lifting, twisting and turning. Infection and neurological warnings were given. The patient was given instructions for bathing, brace wear, wound care and to return to clinic f or follow up in 3 weeks. Discharge medications include pain medicine, mus andrey relaxers, steroids and antibiotics. The patient was to call the office with any problems or difficulties post the time of discharge to home. Intraoperative findings and expected outcome were discussed. Potential probl ems at other levels were discussed as well. The patient understood each o f these things at the time of discharge to home. Med Rec Med Rec Discharge meds: Continue taking these medications: LISINOPRIL (ZESTRIL) 20 MG TAB 20 MILLIGRAM ORAL TWICE DAILY. ZOLPIDEM (AMBIEN) 10 MG TAB 10 MILLIGRAM ORAL BEDTIME. as needed for INSOMN IA CHOLESTYRAMINE/ASPARTAME (QUESTRAN LIGHT) 210 GM POWDER 4 GRAM ORAL EVERY OTHER DAY Instructions: 1/2 PACKET EVERY OTHER DAY NEBIVOLOL (BYSTOLIC) 5 MG TAB 5 MILLIGRAM ORAL BEDTIME. ROSUVASTATIN (CRESTOR) 10 MG TAB 10 MILLIGRAM ORAL BEDTIME. HYDROCHLOROTHIAZIDE (HYDRODIURIL) 25 MG TAB 25 MILLIGRAM ORAL DAILY. CHOLECALCIFEROL (VITAMIN D3) (VITAMIN D3) 1,000 UNITS CAP 1,000 UNITS ORAL DAILY. OMEPRAZOLE DR (PriLOSEC) 20 MG TAB.DR 20 MILLIGRAM ORAL DAILY NEEDED. as needed fo r OCC GERD CALCIUM/MAGNESIUM 300/300 MG (CALCIUM/MAGNESIUM 300/300 MG) 1 TAB TAB 1 TABLET ORAL DAILY. The following medications have been changed: Old: RIVAROXABAN (XARELTO) 15 MILLIGRAM ORAL BEDTIME. New: RIVAROXABAN (XARELTO) 15 MG TAB 15 MILLIGRAM ORAL BEDTIME. Instructions: RESTART ON 03/31/19 Old: OMEGA-3 FATTY ACIDS/FISH OIL (OMEGA 3 1,000 MG S OFTGEL) 1,000 MILLIGRAM ORAL DAILY. New: OMEGA-3 FATTY ACIDS/FISH OIL (OMEGA 3 1,000 MG S OFTGEL) 1,000 MG CAP 1,000 MILLIGRAM ORAL DAILY. Instructions: RESTART ON 04/02/19 Electronically Signed by Sadiq Mckinney on at 1003 at 0720 RPT #:[id number] END OF REPORT 2019-03-29 10:01:00-00:00 [facility] ([facility]) Clinical Note REPORT#:[id number] REPORT STATUS: Signed DATE:03/29/19 TIME: 1001 PATIENT: SIA ESCAMILLA UNIT #: [id number] ROOM/BED: [address] : 41 AGE: 78 SEX: F ATTEND: Devon Wooten MD ADM AUTHOR: Sadiq Mckinney * ALL edits or amendments must be made on the el ectronic/computer document * Clinical Note Note: Patient doing well. Afebrile. Vitals stable. Amb ulating well. Laboratory Tests 03/29 1621 1119 Chemistry POC Glucose (60 - 125 mg/dL) 85 98 101 107 Laboratory Tests 03/29 0500 Hematology Hgb (10.7 - 13.9 g/dL) 8.7 L Hct (32.1 - 42.1 %) 27.2 L Laboratory Tests 03/28 1200 Toxicology Vancomycin Trough (15.0 - 20.0 mcg/mL) 12.50 L Vital Signs Date Temp Pulse Resp B/P B/P Mean Pulse Ox FiO2 03/28-03/29 96.8-97.7 58-90 14-18 104-138/49-80 71-99.1 95-99 28 Intake Output 03/29 0700 03/28 2300 03/28 1500 Intake Total Output Total 80 140 800 Balance -80 -140 -800 Number Voids 3 1 Output, 80 140 Drainage Output, Urine 800 Exam: Neuro Intact Impression: Post Op Posterior Lumbar Fusion L4-S 1 Plan: DC Drains Change Dressing DC to Home post good po, void and ambulating Send with home Rx Return to clinic in 3 weeks Electronically Signed by Sadiq Mckinney on at 1002 RPT #:[id number] END OF REPORT 2019-03-29 10:01:00-00:00 [facility] ([facility]) Clinical Note REPORT#:[id number] REPORT STATUS: Signed DATE:03/29/19 TIME: 1000 PATIENT: SIA ESCAMILLA UNIT #: [id number] ROOM/BED: [address] : 41 AGE: 78 SEX: F ATTEND: Devon Wooten MD ADM AUTHOR: Sadiq Mckinney * ALL edits or amendments must be made on the [employer] document * Clinical Note Note: Patient doing well. Afebrile. Vitals stable. Amb ulating well. Laboratory Tests 03/29 162 1119 Chemistry POC Glucose (60 - 125 mg/dL) 85 98 101 107 Laboratory Tests 03/29 0500 Hematology Hgb (10.7 - 13.9 g/dL) 8.7 L Hct (32.1 - 42.1 %) 27.2 L Laboratory Tests 03/28 1200 Toxicology Vancomycin Trough (15.0 - 20.0 mcg/mL) 12.50 L Vital Signs Date Temp Pulse Resp B/P B/P Mean Pulse Ox FiO2 03/28-03/29 96.8-97.7 58-90 14-18 104-138/49-80 71-99.1 95-99 28 Intake Output 03/29 0700 03/28 2300 03/28 1500 Intake Total Output Total 80 140 800 Balance -80 -140 -800 Number Voids 3 1 Output, 80 140 Drainage Output, Urine 800 Exam: Neuro Intact Impression: Post Op Posterior Lumbar Fusion L4-S 1 Plan: DC Drains Change Dressing DC to Home post good po, void and ambulating Send with home Rx Return to clinic in 3 weeks Electronically Signed by Sadiq Mckinney on at 1002 at 0720 RPT #:[id number] END OF REPORT 2019-03-29 09:14:00-00:00 [facility] ([facility]) Internal Medicine Prog. Note REPORT#:[id number] REPORT STATUS: Signed DATE:03/29/19 TIME: 913 PATIENT: SIA ESCAMILLA UNIT #: [id number] ROOM/BED: [facility]-A : 41 AGE: 78 SEX: F ATTEND: Devon Wooten MD ADM AUTHOR: Navneet Osullivan MD * ALL edits or amendments must be made on the [employer]/computer document * Subjective Patient reports: no complain ts, no abdominal pain, no chest pain, no dizziness ( when getting OOB), no headac he, no heartburn, no nausea, no shortness of breath, no vomiting, ambulating, feeling better, pain co ntrolled, passing flatus Objective General VS/I O: Vital Signs Date Temp Pulse Resp B/P B/P Mean Pulse Ox FiO2 03/28-03/29 96.8-97.7 58-90 14-18 104-138/49-80 71-99.1 95-99 28 Last Documented: Result Date Time Pulse Ox 99 03/29 0446 B/P 111/69 03/29 0446 B/P Mean 82.7 03/29 0446 Temp 96.8 03/29 0446 Pulse 67 03/29 0446 Resp 14 03/29 0446 FiO2 28 03/29 0102 O2 Delivery Nasal cannula 03/29 010 O2 Flow Rate [id number] 03/29 0102 24 hour I O ending at 0700: 03/29 0700 03/28 1900 Intake Total Output Total 140 880 Balance -140 -880 Number Voids 4 Output, 140 80 Drainage Output, Urine 800 Patient Weight Weight (lb): 213 Weight (oz): 13.57 Weight (kg): 96.615 Post-op: day 3 Physical Exam General appearance: alert, awake, no acute distr ess Cardiovascular: normal heart sounds, regular rat e rhythm, no murmur Respiratory: clear to auscultation Abdomen: abnormal bowel sounds (hypoactive), non -tender, soft, no distention Genitourinary: no amezcua Extremities: Extremities: no calf tenderness, no edema Results Findings/Data: Laboratory Tests 03/29/19 0500: [Embedded Image Not Available] Laboratory Tests 03/29 03/28 03/28 03/28 0551 2014 1621 1119 Chemistry POC Glucose (60 - 125 mg/dL) 85 98 101 107 Laboratory Tests 03/29 0500 Hematology Hgb (10.7 - 13.9 g/dL) 8.7 L Hct (32.1 - 42.1 %) 27.2 L Laboratory Tests 03/28 1200 Toxicology Vancomycin Trough (15.0 - 20.0 mcg/mL) 12.50 L Results: labs reviewed Diagnosis, Assessment Plan Problem List/A P: 1. Type 2 diabetes mellitus without complicatio ns 2. Essential (primary) hypertension 3. Gastro-esophageal reflux disease without eso phagitis 4. NURIA (obstructive sleep apnea) 5. A-fib 6. Postoperative anemia due to acute blood loss Free Text DxA P Notes Free Text DxA P Notes: BP is low normal this AM. BS's remain no rmal. I will DC Accuchecks. Pt remains in a regular cardiac rhythm. Continue currrent t reatment. Continue to mobilize. Electronically Signed by Navneet Osullivan MD on at 0927 [facility] #:[id number] END OF REPORT 2019-03-28 16:38:00-00:00 [id number] [place] [id number] PATIENT NAME: SIA ESCAMILLA ADMIT DATE: 03/26/19 ACCOUNT NO: [id number] ROOM NO: Y.502 AGE: 78 REPORT TYPE: OPERATIVE REPORT SEX: F ADMITTING PHYSICIAN:Devon Wooten MD ATTENDING PHYSICIAN:Devon Wooten MD OPERATION DATE:03/26/19 PREOPERATIVE DIAGNOSES: Spondylolisthesis, post laminectomy, L4-L5, with degenerative change and vacu um disk, L5-S1, with right L5 lumbar radiculopathy. POSTOPERATIVE DIAGNOSES: Spondylolisthesis, post laminectomy, L4-L5, with degenerative change and vacu um disk, L5-S1, with right L5 lumbar radiculopathy, with facet fracture, L4-L5. PROCEDURES PERFORMED: 1. Redo laminectomies bilaterally at L4-L5. 2. Laminectomy, facetectomy, and foraminotomies of L5 and S1, with bilateral hemilamina at L3-L4. 3. Posterolateral fusion with segmental instrume ntation, L4 through sacrum. 4. Transforaminal lumbar interbody fusion with A esculap plasma-coated PEEK cages, L4-L5 and L5-S1 with autograft and epidur al catheter. SURGEON: Devon Wooten MD OREMAN: CLARISA Jones The skilled assistance of CLARISA Trejo was ne cessary during this complex spinal procedure. He assisted with every aspect of the operation including but not limited to, proper and safe position ing of the patient, obtaining adequate surgical exposure, manipulation of the s urgical instruments, the delicate task of providing suction to the surgical wound immed iately adjacent to the spinal cord and neural elements, the delicate task of r etraction of the soft tissues including muscles, trachea, and esophagus for ad equate surgical exposure, the continual process of hemostasis during the proce dure itself in addition to surgical wound closure and r emoval of patient form the operating room bed safely and returning him to the [facility] bed. His assistance allowed me to perform the most sensitive in technical portions of this operation using four well trained hands, thus enhancing patient safety. Th e extremely technical portions of this procedure would not be possible without the help of the skilled dietary assistant familiar with the procedure who is also capable of performing the aforementioned tasks and who is experienced working with the ne ural structures. Our facility is not a teaching hospital and as such there are no surgical residents or interns available to assist. ANESTHESIA: General endotracheal anesthesia. COMPLICATIONS: None. PATIENT NAME: SIA ESCAMILLA ACCOUNT #: Y [id number] DISPOSITION: The patient was taken from the operating room to the recovery room in stable condition. INDICATIONS FOR SURGICAL INTERVENTION: Ms. Felice Escamilla is a 78-year-old female with a progressive right lumb ar radiculopathy. The patient had grade I to grade II spondylolisthesis at L4- L5. She was undergone management with medicines, exercises, injections , and conservative measures. With failure of conservative treatment, the patient had a previous laminectomy in the past at the L4-L5 interval. It was discus sed with her at length her options for management including continued conse rvative medicines, exercise, injections. Further injection and surgical inter vention were also discussed including the decompression and fusion including the procedure, risks, benefits, list of complications. The possibility includes the L5-S1 interval was also discussed with the patient because of the vacuum disk at L5-S1 interval. The procedure, risks, benefits, and list of complications were discussed at length. It was felt the patient had progressive L5 radic ulopathy with the post laminectomy spondylolisthesis at L5-S1. The lele ent, because of the continued pain and radiculopathy affec ting her quality of life, elected to proceed forward with surgical intervention. She understo od the procedure, risks, benefits, and list of complications. PROCEDURE IN DETAIL: The patient was taken to [facility] operating room. She was placed under general endotracheal anesthesia, po sitioned with her neck in a neutral position, upper extr emities well padded, and her pulses intact. She had been given appropriate perioperative antibiotics and 10 mg of Decadron. Her previous incision was marked. The patien t was prepped and draped. The incision was carried down through the skin and subcutaneous tissue down to the lamina and dissected laterally to identify the transverse p rocesses of L4, L5, and S1. This was done without complication. The previous laminectomy site at L4-L5 was identified. Using straight and curved curette, t he scar tissue was elevated, and redo decompression was carried out at the L4 -L5 interval. The scar tissue was noted to extend to the right and to the left , and the dissection to the stenosis and foraminal narro wing at this level was much greater than what would have been required for the TLIF alone. A t L5-S1, decompression was carried out without complication decompr essing the L5 nerve root through the lateral recess around the pedicle into the foramen and the S1 n erve root through the L5-S1 lateral recess around the pe dicle into the foramen. This was done to the right and to the left hand sides, and at the L3-L4, th rough the lamina of L4 to further decompress the L4 nerve root edwin und the pedicle into the foramen. This was done to the right and to the left hand side. After completion of each of the redo decompressions, a high-speed bur was us ed to make a starting hole in the L4 pedicle. A Steffee pr obe, ball-ended probe, and tap were placed down the pedicle. The same procedure was carried out at the right L5, right S1, and left L4, L5, and S1 pedicles. This was done without c omplication. Thorough irrigation with bacitracin-impregnated saline so lution was carried out. Meticulous hemostasis was obtained. A high-speed bur was used to decorticate bilaterally at L4-L5 and L5-S1, and auto graft and allograft were packed in the lateral gutters for fusion. Instrumentation was placed into the left L4, L5, and S1 pedicles and the right L4, L5, an d S1 pedicles while directly palpating the pedicles. This was done without difficulty. Intraoperative radiographs showed good alignment of the instrumentation. In terconnecting melissa was placed. Distraction was applied to t he right hand side. The disk space was opened using #15 blade at the L5-S1 interval. The disk space was sized with PATIENT NAME: SIA ESCAMILLA ACCOUNT #: Y [id number] appropriate-sized Aesculap PEEK cage. Autograft was packed anteriorly as well as allograft in the disk space. This was done wi thout complication. The graft was tamped into place with an excellent interfer ence fit. The distraction was released. Compression was applied across the gra ft. After completion of this at L5-S1, the same procedure was carried out at L4-L5 with removal of the disk templating with the appropri ate size packing of autograft anteriorly as well as allograft and impacting the template at the previously templated Aesculap PEEK cage into place, and the dis traction was released. Compression was applied, and each of the top tightening fasteners were torque d to appropriate tension. Intraoperative radiographs showed good alignment of the grafts and instrumentation. Catheter was placed. Two medium Hemovacs were placed. The fascia was closed using #1 Vicryl, subcutaneous tissue with 2-0 Vicryl, skin with 3-0 Vicryl. Steri-Strips and sterile dressi ng applied. The patient was taken from the operating room to recovery room i n stable condition. Postoperative plan to be up and ambulatory. Intr aoperative findings were discussed with the patient's family including at L4-L5 and L5-S1 intervals in both these areas. Dictated By: Devon Wooten MD WT: OP:INDIGO/STEFANIE/HAYLIE Conf#: [id number]/DID#: [id number] Authenticated and Edited by Devon hair MD On 03/30/19 7:18:59 AM Electronically Signed by MD marc Dangelo n 03/30/19 at 0723 PATIENT NAME: SIA ESCAMILLA ACCOUNT #: Y [id number] 2019-03-28 11:52:00-00:00 [facility] ([facility]) Clinical Note REPORT#:[id number] REPORT STATUS: Signed DATE:03/28/19 TIME: 115 PATIENT: SIA ESCAMILLA UNIT #: [id number] [facility] AGE: 78 SEX: F ATTEND: Devon Wooten MD ADM AUTHOR: Foster Rodrigues MD * ALL edits or amendments must be made on the [employer] document * Clinical Note Note: Patient seen and ID'd. Doing well, pain well controlled. Took one pain pill last night. VSS Epidural DC'd, tip intact. Visible skin under ta pe C/D/I. Patient informed that would possibly need PO med s for pain. RN informed epidural removed. Electronically Signed by Foster Rodrigues MD on at 1153 RPT #:[id number] END OF REPORT 2019-03-28 09:46:00-00:00 [facility] ([facility]) Clinical Note REPORT#:[id number] REPORT STATUS: Signed DATE:03/28/19 TIME: 945 PATIENT: SIA ESCAMILLA UNIT #: [id number] ROOM/BED: [address] : 41 AGE: 78 SEX: F ATTEND: Devon Wooten MD ADM AUTHOR: Sadiq Mckinney PA * ALL edits or amendments must be made on the [employer] document * Clinical Note Note: Patient doing well. Afebrile. Vitals stable. Amb ulating well. Laboratory Tests 03/28 03/27 0523 2010 Chemistry POC Glucose (60 - 125 mg/dL) 113 143 H Laboratory Tests 03/28 0500 Hematology Hgb (12 - 16 g/dL) 8.6 L Hct (37 - 47 %) 26.7 L Vital Signs Date Temp Pulse Resp B/P B/P Mean Pulse Ox FiO2 03/27-03/28 96.6-98.4 60-70 14-20 108-144/51-66 69.9-94 93-100 28 Intake Output 03/28 0700 03/27 2300 03/27 1500 Intake Total 880.00 640.00 Output Total 2730 90 Balance -1850.00 640.00 -90 Intake, IV 400.00 400.00 Intake, Oral 480 240 Output, 130 90 Drainage Output, Urine 2600 Patient 213 lb Weight Exam: Neuro Intact Impression: Post Op Posterior Lumbar Fusion L4-S 1 Plan: Out of Bed 4-6 hours Ambulate with PT Wean and DC Epidural DC Amezcua catheter 2 hours after DC Epidural Continue Drains Continue IV Antibiotics Electronically Signed by Sadiq Mckinney on at 0947 RPT #:[id number] END OF REPORT 2019-03-28 09:46:00-00:00 [facility] ([facility]) Clinical Note REPORT#:[id number] REPORT STATUS: Signed DATE:03/28/19 TIME: 09 PATIENT: SIA ESCAMILLA UNIT #: [id number] ROOM/BED: [address] : 41 AGE: 78 SEX: F ATTEND: Devon Wooten MD ADM AUTHOR: Sadiq Mckinney * ALL edits or amendments must be made on the [employer]/computer document * Clinical Note Note: Patient doing well. Afebrile. Vitals stable. Amb ulating well. Laboratory Tests 03/28 Chemistry POC Glucose (60 - 125 mg/dL) 113 143 H Laboratory Tests 03/28 0500 Hematology Hgb (12 - 16 g/dL) 8.6 L Hct (37 - 47 %) 26.7 L Vital Signs Date Temp Pulse Resp B/P B/P Mean Pulse Ox FiO2 03/27-03/28 96.6-98.4 60-70 14-20 108-144/51-66 69.9-94 93-100 28 Intake Output 03/28 0700 03/27 2300 03/27 1500 Intake Total 880.00 640.00 Output Total 2730 90 Balance -1850.00 640.00 -90 Intake, IV 400.00 400.00 Intake, Oral 480 240 Output, 130 90 Drainage Output, Urine 2600 Patient 213 lb Weight Exam: Neuro Intact Impression: Post Op Posterior Lumbar Fusion L4-S 1 Plan: Out of Bed 4-6 hours Ambulate with PT Wean and DC Epidural DC Amezcua catheter 2 hours after DC Epidural Continue Drains Continue IV Antibiotics Electronically Signed by Sadiq Mckinney on at 0947 at 0721 RPT #:[id number] END OF REPORT 2019-03-28 07:58:00-00:00 [facility] ([facility]) Internal Medicine Prog. Note REPORT#:[id number] REPORT STATUS: Signed DATE:03/28/19 TIME: 757 PATIENT: SIA ESCAMILLA UNIT #: [id number] ROOM/BED: [address] : 41 AGE: 78 SEX: F ATTEND: Devon Wooten MD ADM AUTHOR: Navneet Osullivan MD * ALL edits or amendments must be made on the [employer] document * Subjective Patient reports: no complain ts, no abdominal pain, no chest pain, no dizziness ( when getting OOB), no headac he, no heartburn, no nausea, no shortness of breath, no vomiting, feeling better, pain controlled, pa ssing flatus Objective General VS/I O: Vital Signs Date Temp Pulse Resp B/P B/P Mean Pulse Ox FiO2 03/27-03/28 96.6-98.4 60-70 14-20 108-144/51-66 69.9-94 93-100 28 Last Documented: Result Date Time Pulse Ox 100 03/28 0703 B/P 131/58 03/28 0703 B/P Mean 84 03/28 0703 O2 Delivery Nasal cannula 03/28 07 Temp 97.2 03/28 07 Pulse 60 03/28 0703 Resp 14 03/28 0703 FiO2 28 03/28 0202 O2 Flow Rate 2.764906 03/28 0202 24 hour I O ending at 0700: 03/28 0700 03/27 1900 Intake Total 1520.00 Output Total 2730 90 Balance -1210.00 -90 Intake, IV 800.00 Intake, Oral 720 Output, 130 90 Drainage Output, Urine 2600 Patient 213 lb Weight Patient Weight Weight (lb): 213 Weight (oz): 13.57 Weight (kg): 96.615 Post-op: day 2 Physical Exam General appearance: alert, awake, no acute distr ess Cardiovascular: normal heart sounds, regular rat e rhythm, no murmur Respiratory: clear to auscultation Abdomen: non-tender, normal bowel sounds, soft, no distention Genitourinary: amezcua Extremities: Extremities: no calf tenderness, no edema Results Findings/Data: Laboratory Tests 03/28/19499: [Embedded Image Not Available] Laboratory Tests 03/28 Chemistry POC Glucose (60 - 125 mg/dL) 113 143 H Laboratory Tests 03/28 500 Hematology Hgb (12 - 16 g/dL) 8.6 L Hct (37 - 47 %) 26.7 L Results: labs reviewed Diagnosis, Assessment Plan Problem List/A P: 1. Type 2 diabetes mellitus without complicatio ns 2. Essential (primary) hypertension 3. Gastro-esophageal reflux disease without eso phagitis 4. NURIA (obstructive sleep apnea) 5. A-fib 6. Postoperative anemia due to acute blood loss Free Text DxA P Notes Free Text DxA P Notes: BP is controlled. BS's are normal. Pt remains in a regular cardiac rhythm. Continue currrent treatment. Continue to mobiliz e. Electronically Signed by Navneet Osullivan MD on at 0837 RPT #:[id number] END OF REPORT 2019-03-27 08:49:00-00:00 [id number] [place] [address] PATIENT NAME: SIA ESCAMILLA ADMIT DATE: 03/26/19 ACCOUNT NO: [id number] ROOM NO: Y.502 AGE: 78 REPORT TYPE: CONSULTATION REPORT SEX: F ADMITTING PHYSICIAN:Devon Wooten MD ATTENDING PHYSICIAN:Devon Wooten MD CONSULTATION DATE: 03/27/2019 CONSULTING PHYSICIAN: Navneet Osullivan MD ATTENDING PHYSICIAN: Devon Wooten MD CONSULTING PHYSICIAN: Navneet Osullivan MD REASON FOR CONSULTATION: Postoperative medical e valuation and management of patient with multiple medical problems. HISTORY OF PRESENT ILLNESS: The patient is a 78- year-old white female with lumbar degenerative disk dis ease, who underwent transforaminal lumbar interbody fusion and fixation, L4-L5, yesterday. T he patient tolerated surgery well. She currently denies any chest pain, shortne ss of breath, nausea, or vomiting. She has adequate pain control, at the presen t time with her fentanyl epidural [employer]. She denies any lightheadedness or headac he when getting up out of bed. She has been passing flatus this morning. PAST MEDICAL HISTORY: Adult-onset diabetes aquilinolamberto ventura (diet controlled). The patient also has hypertension, obstructive sleep apnea, atrial fibrillation (status post ablation, 2018) and have gastroesophageal reflux disease, and hypercholesterolemia. She denies any coronar y artery disease, congestive heart failure, asthma, or history of deep venous thrombosis. PAST SURGICAL HISTORY: Cholecystectomy. Cataract removal. Bunionectomy. ALLERGIES: PENICILLIN AND CODEINE. CURRENT MEDICATIONS: Xarelto 15 mg at bedtime (o n hold), cholestyramine 4 gm every other day, lisinopril 20 mg b.i.d., nebivo lol 5 mg at bedtime, rosuvastatin 10 mg at bedtime, zolpidem 10 mg at bedtime p.r.n. insomnia, calcium/magnesium 300/300 da yanet, hydrochlorothiazide 25 mg q.a.m., omega-3 fish oil 1000 mg daily (on hold), omeprazole 20 mg daily p.r.n. indigestion, vitamin D 1000 units daily, postop dexamethasone 4 mg IV q. 6 hours for 4 doses, then Medrol Dosepak. Fentanyl epidural [employer]. FAMILY HISTORY: Mother had hypertension. Father had coronary artery disease. SOCIAL HISTORY: The patient is a retired secreta ry. She does not smoke and occasionally drinks alcohol. PATIENT NAME: SIA ESCAMILLA ACCOUNT #: Y [id number] REVIEW OF SYSTEMS: The patient reports having dy spnea on exertion. She denies any exertional chest pain, o rthopnea, PND, black tarry stools, bright red blood per rectum, or dysuria. PHYSICAL EXAMINATION: GENERAL: Well-developed, obese white female in n o apparent distress. VITAL SIGNS: Pulse 66 and regular, respirations 14, blood pressure 124/71, temperature 98.2, oxygen saturation 95% on room air. EYES: EOMI. PERRLA. Sclerae are anicteric. OROPHARYNX: Clear. NECK: No adenopathy, thyromegaly, masses, tender ness, JVD, or carotid bruits. LUNGS: Clear to auscultation. HEART: Regular rate and rhythm without murmurs, gallops, or rubs. ABDOMEN: Bowel sounds present throughout. No hep atosplenomegaly, masses, tenderness, bruits or distention. EXTREMITIES: No clubbing, cyanosis, or edema. No calf or thigh swelling or posterior tenderness. No Homans sign or palpable cords bilaterally. No pedal lesions. LABORATORY DATA: Hemoglobin 9.8, hematocrit 29.9 . Sodium 134, potassium 4.4, chloride 98, bicarbonate 26, BUN 10, creatinine 0.81, GFR 68.6, glucose 191, calcium 7.7. IMPRESSION: 1. Adult-onset diabetes mellitus (type 2), diet controlled. Postop use of steroids is causing the patient's blood sugar to be markedly elevated. 2. Hypertension. Blood pressure well controlled at the present time. 3. Obstructive sleep apnea. The patient does not use a CPAP machine. 4. Gastroesophageal reflux disease. Asymptomatic . 5. Atrial fibrillation. The patient is currently in a regular cardiac rhythm. 6. Hypercholesterolemia. 7. Status post lumbar fusion. The patient is cur rently stable. 8. Acute blood loss anemia secondary to surgery. Moderate. 9. Hyponatremia. Mild. Stable. Most likely secon christina to hydrochlorothiazide use. 10. Hypocalcemia. Mild. Of no clinical significa nce. PLAN: 1. Sugar-free clear liquid diet. We will advance to 1800-calorie ADA, low-cholesterol diet this morning as the patient is now passing flatus. 2. Continue thigh-high VERNON hose. 3. Continue sequential compression devices to fam th feet. 4. Continue mobilization. 5. Recheck H and H in a.m. 6. Q.a.c. and at bedtime Accu-Cheks. 7. Humalog moderate dose regimen sliding scale. 8. Discontinue remaining dos es of scheduled dexamethasone and subsequent Medrol Dosepak due to markedly elevated blood sugars. 9. The patient may restart Xarelto on 03/31/2019 . 10. The patient may restart fish oil on 04/02/20 19. 11. Hold cholestyramine while the patient is in the hospital to decrease risk of ileus formation. 12. Hold lisinopril and hydrochlorothiazide if s ystolic blood pressure less than 120. PATIENT NAME: SIA ESCAMILLA ACCOUNT #: Y [id number] 13. Hold labetalol for systo lic blood pressure less than 105 or heart rate less than 50. 14. Dose omeprazole daily wh ile the patient is in the hospital due to increased risk of reflux postop. 15. The patient to sleep with oxygen each night while in the hospital. The patient's flow rate will be titrated in order fo r the patient to maintain a saturation of at least 92%. Thank you very much for this consultation. I deisy l follow patient with you during her hospitalization. Dictated By: Navneet Osullivan MD WT: CON:INDIGO/BASSAM/NTS Conf#: [id number]/DID#: [id number] Authenticated by Navneet Osullivan MD On 03/28/2019 08:40:44 AM Electronically Signed by Navneet Osullivan MD on at 0841 PATIENT NAME: SIA ESCAMILLA ACCOUNT #: Y [id number] 2019-03-27 08:38:00-00:00 [facility] ([facility]) Clinical Note REPORT#:[id number] REPORT STATUS: Signed DATE:03/27/19 TIME: 08 PATIENT: SIA ESCAMILLA UNIT #: [id number] ROOM/BED: [address] : 41 AGE: 78 SEX: F ATTEND: Devon Wooten MD ADM AUTHOR: Shelly Garzon * ALL edits or amendments must be made on the [employer]computer document * Clinical Note Note: Ask to manage postoperative pain by Dr. GONG ON Epidural X IV Medication FENT 10/BUP 0.0625% Pump Settings: Ba bib Rate 3 Dose 1 Delay 15 1 Hour Limit 9 [employer] Use OCCASIONAL Assessment VAS 3 L.O.S. 1 Res pirator Quality 1 Side Effects: X None PT IS POD 1 S/P TLIF ALERT AND COMFORTABLE SITTING IN CHAIR. STATES SHE DID WALK LAST NIGHT WITHOUT PROBLEM. PLAN: CONTINUE EPIDURAL TODAY, D/C TOMORROW. Site Assessment: X Site non-tender and free of r edness, swelling or exudates. Catheter Discontinued NO Portions of this section were scribed by Christine Lester on 03/27/19 at 0838 at 1320 RPT #:[id number] END OF REPORT 2019-03-27 08:22:00-00:00 [facility] ([facility]) Internal Medicine Prog. Note REPORT#:[id number] REPORT STATUS: Signed DATE:03/27/19 TIME: 821 PATIENT: SIA ESCAMILLA UNIT #: [id number] [facility] AGE: 78 SEX: F ATTEND: Devon Wooten MD ADM AUTHOR: Navneet Osullivan MD * ALL edits or amendments must be made on the [employer]/computer document * Subjective Comments: Consult Note Dictated Objective General VS/I O: Vital Signs Date Temp Pulse Resp B/P B/P Mean Pulse Ox FiO2 03/26-03/27 96.1-98.2 66-75 12- 111-141/56-83 76.8-98.4 95-100 32 Last Documented: Result Date Time Pulse Ox 95 03/27 0710 B/P 124/71 03/27 0710 B/P Mean 88.6 03/27 0710 O2 Delivery Room air 03/27 0710 Temp 98.2 03/27 0710 Pulse 66 03/27 0710 Resp 14 03/27 0710 FiO2 32 03/27 0536 O2 Flow Rate 3.811289 03/27 0536 24 hour I O ending at 0700: 03/27 0700 03/26 1900 Intake Total 1100.00 105.00 Output Total 875 125 Balance 225.00 -20.00 Intake, IV 1100.00 100.00 Intake, Oral 5 Output, 405 75 Drainage Output, Urine 470 50 Patient 214 lb Weight Weight Standing scale Measurement Method Patient Weight Weight (lb): 213 Weight (oz): 13.57 Weight (kg): 97.000 Physical Exam General appearance: alert, awake, no acute distr ess Diagnosis, Assessment Plan Problem List/A P: 1. Type 2 diabetes mellitus without complicatio ns 2. Essential (primary) hypertension 3. Gastro-esophageal reflux disease without eso phagitis 4. NURIA (obstructive sleep apnea) 5. A-fib Electronically Signed by Navneet Osullivan MD on at 1901 RPT #:[id number] END OF REPORT 2019-03-27 07:24:00-00:00 [facility] ([facility]) Clinical Note REPORT#:[id number] REPORT STATUS: Signed DATE:03/27/19 TIME: 723 PATIENT: SIA ESCAMILLA UNIT #: [id number] [facility] AGE: 78 SEX: F ATTEND: Devon Wooten MD ADM AUTHOR: Sadiq Mckinney * ALL edits or amendments must be made on the [employer]/computer document * Clinical Note Note: Patient doing well. Afebrile. Vitals stable. Amb ulating well. Laboratory Tests 03/27 415 Chemistry Sodium (136 - 145 mmol/L) 134 L Potassium (3.5 - 5.1 mmol/L) 4.4 Chloride (98 - 107 mmol/L) 98.0 Carbon Dioxide (21 - 32 mmol/L) 26.0 BUN (7 - 18 mg/dL) 10 Creatinine (0.55 - 1.30 mg/dL) 0.81 Glomerular Filtr Rate (>60) 68.6 Glucose (70 - 110 mg/dL) 191 H Calcium (8.2 - 10.1 mg/dL) 7.7 L Laboratory Tests 03/27 415 Hematology Hgb (12 - 16 g/dL) 9.8 L Hct (37 - 47 %) 29.9 L Vital Signs Date Temp Pulse Resp B/P B/P Mean Pulse Ox FiO2 03/26-03/27 96.1-98.2 66-75 - 111-141/56-83 76.8-98.4 95-100 32 Intake Output 03/27 0700 03/26 2300 03/26 1500 Intake Total 405.00 Output Total 375 625 Balance -375 -220 Intake, IV 400.00 Intake, Oral 5 Output, 125 355 Drainage Output, Urine 250 270 Patient 214 lb Weight Weight Standing scale Measurement Method Exam: Neuro Intact Impression: Post Op Posterior Lumbar Fusion L4-S 1 Plan: Out of Bed 4-6 hours Ambulate with PT Continue Epidural and Amezcua catheter Continue Drains Continue IV Antibiotics Electronically Signed by Sadiq Mckinney on at 0724 RPT #:[id number] END OF REPORT 2019-03-27 07:24:00-00:00 [facility] ([facility]) Clinical Note REPORT#:[id number] REPORT STATUS: Signed DATE:03/27/19 TIME: 07 PATIENT: SIA ESCAMILLA UNIT #: [id number] ROOM/BED: [address] : 41 AGE: 78 SEX: F ATTEND: Devon Wooten MD ADM AUTHOR: Sadiq Mckinney * ALL edits or amendments must be made on the [employer]/computer document * Clinical Note Note: Patient doing well. Afebrile. Vitals stable. Amb ulating well. Laboratory Tests 03/27 415 Chemistry Sodium (136 - 145 mmol/L) 134 L Potassium (3.5 - 5.1 mmol/L) 4.4 Chloride (98 - 107 mmol/L) 98.0 Carbon Dioxide (21 - 32 mmol/L) 26.0 BUN (7 - 18 mg/dL) 10 Creatinine (0.55 - 1.30 mg/dL) 0.81 Glomerular Filtr Rate (>60) 68.6 Glucose (70 - 110 mg/dL) 191 H Calcium (8.2 - 10.1 mg/dL) 7.7 L Laboratory Tests 03/27 415 Hematology Hgb (12 - 16 g/dL) 9.8 L Hct (37 - 47 %) 29.9 L Vital Signs Date Temp Pulse Resp B/P B/P Mean Pulse Ox FiO2 03/26-03/27 96.1-98.2 66-75 12- 111-141/56-83 76.8-98.4 95-100 32 Intake Output 03/27 0700 03/26 2300 09/19 1500 Intake Total 405.00 Output Total 375 625 Balance -375 -220 Intake, IV 400.00 Intake, Oral 5 Output, 125 355 Drainage Output, Urine 250 270 Patient 214 lb Weight Weight Standing scale Measurement Method Exam: Neuro Intact Impression: Post Op Posterior Lumbar Fusion L4-S 1 Plan: Out of Bed 4-6 hours Ambulate with PT Continue Epidural and Amezcua catheter Continue Drains Continue IV Antibiotics Electronically Signed by Sadiq Mckinney on at 0724 at 0721 RPT #:[id number] END OF REPORT 2019-03-26 13:37:00-00:00 [facility] ([facility] Brief Op Note REPORT#:[id number] REPORT STATUS: Signed DATE:03/26/19 TIME: 1336 PATIENT: SIA ESCAMILLA UNIT #: [id number] ROOM/BED: [place] [address] : 41 AGE: 78 SEX: F ATTEND: Devon Wooten MD ADM AUTHOR: Devon Wooten MD * ALL edits or amendments must be made on the [employer]/computer document * Op/Inv Proc Note - Brief Pre-procedure diagnosis: Lumbar Radiculopathy Post-procedure diagnosis: same as pre procedure dx Procedures performed: Redo Laminectomy L4-5, Trevor ectomy L5-S1; TLIF with posterior instrumentation L4 -5 and L5-S1 with Aesculap PEEK cage, autograft and allograft Primary Surgeon: Sugar Head Piece Assembler(s): Hank Findings: Same as above Complications: none Estimated blood loss in ml's: 400 ml Specimens removed/altered: none Drain(s): Amezcua Catheter Placed, Medium Hemovac at 1338 RPT #:[id number] END OF REPORT 2018-10-22 21:09:00-00:00 [id number] [address] PATIENT NAME: SIA ESCAMILLA ADMIT DATE: 10/21/18 ACCOUNT NO: [id number] ROOM NO: Z.439 AGE: 78 REPORT TYPE: HISTORY AND PHYSICAL SEX: F ADMITTING PHYSICIAN:Jesse Borjas MD ATTENDING PHYSICIAN:Jesse Borjas MD ADMISSION DATE: 10/21/2018 This is a patient who was admitted post-ablation for atrial flutter. She has done well. She is status post RFA done yesterday . HISTORY OF PRESENT ILLNESS: This is a 78-year-ol d female, who was doing well until last year when she sta rted having atrial flutter and AFib, which made her feel very tired and finally with the medicines, it did not work. She came in for ablation. She is doing well at this time. PAST MEDICAL HISTORY: Hypertension, also coronar y artery disease, hyperlipidemia, mitral insufficiency, pulmonary hypertension, aortic insufficiency, acid reflux and anxiety disorder. PAST SURGICAL HISTORY: Tubal ligation, bunion trevino rgery, and torn cartilage in both knees. ALLERGIES: CODEINE AND PENICILLIN. SOCIAL HISTORY: Does not smoke or drink. REVIEW OF SYSTEMS: Ten points reviewed, pertinen t findings as noted above. MEDICATIONS: Medications that she takes on a hollis ly basis includes rivaroxaban 15 mg daily, Questran daily, lisinopril 20 mg b.i.d., Bystolic 5 daily, omega-3 fatty acid 1000 daily, Crestor 10 daily, Lexapro 10 daily, zolpidem p.r.n., hydrochlorothiazide 12.5 daily, potassium 550 mg daily, and Singulair 10 mg daily. PHYSICAL EXAMINATION: GENERAL: The patient is awake, alert, oriented, looks comfortable. VITAL SIGNS: Noted. HEENT: Pupils are round and reactive. Oropharynx pink. Tongue in midline. Uvula in midline. NECK: No JVD or bruit. CHEST: No crackles or wheezing. CARDIOVASCULAR: Regular rate and rhythm. S1 and S2 normal. ABDOMEN: Soft, nontender. Bowel sounds present. EXTREMITIES: No edema. LABORATORY DATA AND STUDIES: Noted. PATIENT NAME: SIA ESCAMILLA ACCOUNT #: Z [id number] ASSESSMENT: 1. Paroxysmal atrial fibrillation/atrial flutter , status post RFA. 2. History of hypertension. 3. History of coronary artery disease. 4. History of hyperlipidemia. 5. Depression and anxiety disorder. 6. Obesity with BMI 35.3. PLAN: The patient is doing well. She will be dis charged home today. Dictated By: Jason Burrell MD WT: HP:ISMAEL/KATHERINE/HAYLIE Conf#: [id number]/DID#: [id number] Authenticated by Jason Burrell MD On 10/25/2018 04:22:58 PM Electronically Signed by Jason Burrell MD on at 1623 PATIENT NAME: SIA ESCAMILLA 2018-10-22 16:50:00-00:00 [id number] [place] [address] PATIENT NAME: SIA ESCAMILLA ADMIT DATE: 10/21/18 ACCOUNT NO: [id number] ROOM NO: [facility] AGE: 78 REPORT TYPE: eTRANSESOPHAGEAL ECHO SEX: F ADMITTING PHYSICIAN:Jesse Borjas MD ATTENDING PHYSICIAN:Jesse Borjas MD *[facility]* [address] [place] [address] Transesophageal Echocardiogram Patient: Sia Escamilla Study Date: 10/21/2018 BP: Location: [facility] URN: [id number] : 1940 Age: 78 Height: / Gender: F Weight: / BMI/BSA: / *Ordering Physician: * Carlos Alberto Cash MD *Interpreting Physician: * Carlos Alberto Cash MD *Extruding Machine Operator: * Cruz Gallegos BS, RCS, RVS Indications: Atrial Fibrillation. Study data: Consent: The risks, benefits, and al ternatives to the procedure were explained to the patient and info rmed consent was obtained. Procedure: Initial setup: The patient was brought to the laboratory in the fasting state.Intravenous acce ss was obtained. Surface ECG leads and pulse oximetric signals were monit ored. Sedation. Moderate sedation was administered by cardiology staff. T ransesophageal echocardiography was performed. Topical anesthes ia was obtained using viscous lidocaine. A transesophageal probe (SN: [id number]) was inserted by the attending student services coordinator without difficulty. I mages were obtained using a [employer] cardiac ultrasound machine. Image brigitte lity was adequate. The transesophageal probe was removed. Location: [facility] heterization laboratory. Patient status: Outpatient. Patient room number: Physical Medicine Physician Room 3. Study completion: The patient tolerated the procedure well. There were no complications. Findings PATIENT NAME: SIA ESCAMILLA ACCOUNT #: Z [id number] [place] [address] PATIENT NAME: SIA ESCAMILLA ADMIT DATE: 10/21/18 ACCOUNT NO: [id number] ROOM NO: Z.439 AGE: 78 REPORT TYPE: eTRANSESOPHAGEAL ECHO SEX: F ADMITTING PHYSICIAN:Jesse Borjas MD ATTENDING PHYSICIAN:Jesse Borjas MD Left ventricle: The cavity size is normal. Systo lic function is normal. Right ventricle: The cavity size is normal. Syst olic function is normal. Left atrium: The atrium is normal in size. The a ppendage is of normal size. Emptying velocity is normal. There is no e vidence of a thrombus in the atrial cavity or appendage. No spontaneou s echo contrast is observed. Right atrium: The atrium is normal in size. Ther e is no evidence of a thrombus in the atrial cavity or appendage. Atrial septum: No defect or patent foramen ovale is identified. Echo contrast study shows no xsfhw-lq-rheh atrial lev el shunt. Aorta: The aorta is mildly calcified. Aortic valve: The leaflets are normal thickness. There is mild regurgitation. Mitral valve: The leaflets are normal thickness. There is mild regurgitation. Tricuspid valve: There is mild regurgitation. Pulmonic valve: There is no significant regurgit ation. Pericardium: There is no pericardial effusion. Conclusions Summary: 1. Left ventricle: The cavity size is normal. Sy stolic function is normal. 2. Left atrium: There is no evidence of a thromb us in the atrial cavity or appendage. No spontaneous echo contrast is o bserved. 3. Right atrium: There is no evidence of a throm bus in the atrial cavity or appendage. 4. Atrial septum: No defect or patent foramen ov beatriz is identified. Echo contrast study shows no pzcxk-tu-bney atrial le leslie shunt. Prepared and electronically signed by Carlos Alberto Cash MD 10/22/2018 16:50 PATIENT NAME: SIA ESCAMILLA ACCOUNT #: [id number] [address] PATIENT NAME: SIA ESCAMILLA ADMIT DATE: 10/21/18 ACCOUNT NO: [id number] [facility]GE[facility] 78 REPORT TYPE: eTRANSESOPHAGEAL ECHO SEX: F ADMITTING PHYSICIAN:Jesse Borjas MD ATTENDING PHYSICIAN:Jesse Borjas MD at 1651 PATIENT NAME: SIA ESCAMILLA ACCOUNT #: [id number] 2018-10-22 10:37:00-00:00 [facility] ([facility]) History Physical - Adult REPORT#:[id number] REPORT STATUS: Signed DATE:10/22/18 TIME: 1037 PATIENT: SIA ESCAMILLA UNIT #: [id number] ROOM/BED: [address] : 41 AGE: 78 SEX: F ATTEND: Jesse Borjas MD ADM AUTHOR: Jason Burrell MD * ALL edits or amendments must be made on the [employer]/computer document * History of Present Illness HPI Chief complaint: [id number] History Smoking status for patients 13 years old or olde r: Never Smoker Medication/Allergy-Vaccine Hx Allergies: Coded Allergies: Penicillins (Severe, VOMITING 11/16/16) codeine (Severe, HALLUCINATIONS 11/16/16) Quality Medications Current medication review: I attest that the foregoing medication list in [facility] medical record is true, accurate, and complete to the best of my knowled ge. Advanced Care Plan 65 or Older Discussed with: patient Discussion included: code status BMI Screening > 25 or < 18.5 Patient's BMI: Current BMI: 35.3 BMI status/follow-up: abnl BMI, pt to F/U w/PCP Tobacco Use/Counseling Tobacco use/counseling: non tobacco user HTN Screening/Follow-up Last documented vitals: Last Documented: Result Date Time Pulse Ox 95 10/22 0701 B/P 133/75 10/22 0701 B/P Mean 94.7 10/22 0701 O2 Delivery Room air 10/22 0701 Temp 97.7 10/22 0701 Pulse 61 10/22 0701 Resp 16 10/22 0701 B/P assess/follow-up: pre-existing hx of HTN Electronically Signed by Jason Burrell MD on at 2110 RPT #:[id number] END OF REPORT 2018-10-22 06:02:00-00:00 [facility] ([facility]) Cardiology Progress Note REPORT#:[id number] REPORT STATUS: Signed DATE:10/22/18 TIME: 0602 PATIENT: SIA ESCAMILLA UNIT #: [id number] ROOM/BED: [address] : 41 AGE: 78 SEX: F ATTEND: Jesse Borjas MD ADM AUTHOR: Carlos Alberto Cash MD * ALL edits or amendments must be made on the [employer] document * Subjective Patient reports: No: chest pain, palpitations, shortness of breat h. Objective General VS/I O: 24 hour I O ending at 0700: 10/22 0700 10/21 1900 Intake Total 400.00 Output Total Balance 400.00 Intake, IV 400.00 Patient 102.1 kg Weight Weight Bed scale Measurement Method Vital Signs: Date Time Temp Pulse Resp B/P B/P Pulse O2 O2 F low FiO2 Mean Ox Delivery Rate 10/22 0545 97.7 59 17 113/71 85.0 96 Room air 10/22 0031 97.9 67 17 106/70 82.2 94 Room air 10/21 2036 97.3 69 17 138/79 98.8 94 Room air 10/21 1822 66 18 113/61 78 10/21 1730 67 16 110/62 78 10/21 1630 65 16 113/65 81 10/21 1528 63 18 110/56 74 10/21 1525 97.9 66 18 121/74 89.6 95 Room air 10/21 1430 66 18 118/66 83 10/21 1407 61 16 103/54 70.4 96 10/21 1315 65 18 118/58 78 10/21 1300 65 16 113/58 76 10/21 1245 97.5 60 18 116/54 75.1 95 Medications: Active Meds + DC'd Last 24 Hrs Rivaroxaban 15 MG DAILY PO Atorvastatin Calcium 20 MG BEDTIME PO Nebivolol 5 MG DAILY PO Hydrochlorothiazide 12.5 MG DAILY PO Lisinopril 20 MG BID PO Citalopram Hydrobromide 20 MG DAILY PO Cholestyramine Resin 1 PKT BID PO (CKD) Montelukast Sodium 10 MG DAILY PRN PRN PO Zolpidem Tartrate 10 MG BEDTIME PRN PO Sodium Chloride 1,000 ML ONCE ONE IV (DC) Fentanyl Citrate 0 .STK-MED ONE .ROUTE (DC) Midazolam HCl 0 .STK-MED ONE .ROUTE (DC) Lidocaine 0 .STK-MED ONE .ROUTE (DC) Midazolam HCl 0 .STK-MED ONE .ROUTE (DC) Benzocaine 0 .STK-MED ONE .ROUTE (DC) Lidocaine HCl 0 .STK-MED ONE .ROUTE (DC) Isoproterenol HCl 0 .STK-MED ONE .ROUTE (DC) Sodium Chloride 0 .STK-MED ONE IV (DC) Fentanyl Citrate 0 .STK-MED ONE .ROUTE (DC) Heparin Sodium 0 .STK-MED ONE .ROUTE (DC) Heparin Sodium/Sodium Chloride 500 ML .STK-MED O NE IV (DC) Lidocaine 0 .STK-MED ONE .ROUTE (DC) Midazolam HCl 0 .STK-MED ONE .ROUTE (DC) Sodium Chloride 3,000 ML .STK-MED ONE IV (DC) Physical Exam General appearance: alert, awake, oriented Head/Eyes: atraumatic, normocephalic ENT: moist mucosal membranes Neck: no JVD Cardiovascular: CV assessment: regular rate and rhythm Respiratory: clear to auscultation, no distress Lower extremity: LE assessment: no edema Musculoskeletal: full range of motion Neuro/PROJECT ESTIMATOR: alert, oriented X 3, CN II-XII intact Skin: dry, intact Wound/incision: Site condition: dressing clean dry Psychiatry: normal affect, normal judgment/insig ht, normal mood Results Findings/Data: Laboratory Tests 10/21 06 Chemistry Sodium (137 - 145 MMOL/L) 138 Potassium (3.5 - 5.1 MMOL/L) 3.9 Chloride (98 - 107 MMOL/L) 98 Carbon Dioxide (22 - 30 MMOL/L) 25 Anion Gap (14 - 24 MMOL/L) 19 BUN (7 - 17 MG/DL) 26 H Creatinine (0.52 - 1.04 MG/DL) 1.10 H Glomerular Filtr Rate 48 Glucose (74 - 106 MG/DL) 133 H Calcium (8.4 - 10.2 MG/DL) 9.4 Magnesium (1.6 - 2.3 MG/DL) 2.1 Laboratory Tests 10/21 0635 Coagulation INR (0.8 - 1.1) 1.0 APTT (22.0 - 33.0 SECONDS) 28.3 PT Patient/Control Mix (9.6 - 11.6 SECONDS) 10. 5 Laboratory Tests 10/21 0635 Hematology WBC (3.8 - 9.8 K/MM3) 7.3 RBC (3.58 - 4.97 M/MM3) 4.74 Hgb (11.2 - 14.9 G/DL) 14.4 Hct (33.2 - 43.5 %) 43.8 H MCV (80.7 - 99.1 fL) 92 MCH (27.0 - 34.1 pg) 30.4 MCHC (32.2 - 35.7 %) 32.9 RDW (12.1 - 15.2 %) 13.6 Plt Count (129 - 368 K/MM3) 211 MPV (7.4 - 10.4 fl) 10.4 Neut % (Auto) (43 - 75 %) 58.8 Lymph % (Auto) (14 - 44 %) 31.4 Hunt % (Auto) (4 - 13 %) 7.7 Eos % (Auto) (0 - 6 %) 1.2 Baso % (Auto) (0 - 2 %) 0.6 Neut # (Auto) (2.0 - 7.6 K/mm3) 4.26 Lymph # (Auto) (1.0 - 3.8 K/mm3) 2.28 Hunt # (Auto) (0.1 - 0.8 K/mm3) 0.56 Eos # (Auto) (0.0 - 0.2 K/mm3) 0.09 Baso # (Auto) (0.0 - 0.2 K/mm3) 0.04 Immature Gran % (0.0 - 2.0 %) 0.3 Nucleated RBC % (0 - 1.0 %) 0.0 Nucleated RBCs # (Man) (0.0 - 0.1 K/mm3) 0.00 Laboratory Tests 10/21 0635 Chemistry Magnesium (1.6 - 2.3 MG/DL) 2.1 Laboratory Tests 10/21 0635 Coagulation APTT (22.0 - 33.0 SECONDS) 28.3 Diagnosis, Assessment Plan Free Text DxA P Notes Free Text DxA P Notes: IMP: AFL s/p RFA PLAN: Review labs D/C Planning at 1748 RPT #:[id number] END OF REPORT 2018-10-21 11:00:00-00:00 [id number] [facility] [address] [place] [address] PATIENT NAME: SIA ESCAMILLA ADMIT DATE: 10/21/18 ACCOUNT NO: [id number] ROOM NO: Z.439 AGE: 78 REPORT TYPE: OPERATIVE REPORT SEX: F ADMITTING PHYSICIAN:Jesse Borjas MD ATTENDING PHYSICIAN:Jesse Borjas MD OPERATION DATE: 10/21/2018 PROCEDURES: 1. Diagnostic electrophysiology study. 2. Left atrial recordings. 3. Three-dimensional interatrial mapping. 4. Ablation of typical isthmus-dependent atrial flutter. PREPROCEDURE DIAGNOSIS: Atrial flutter. POSTPROCEDURE DIAGNOSIS: Typical isthmus-depende nt counterclockwise atrial flutter. SURGEON: Carlos Alberto Cash MD OREMAN: None ANESTHESIA: Local with sedation PROCEDURE DETAILS: After informed consent was ob tained explaining to the patient risks, benefits, and alternatives, the pasha rees was brought to the cardiac catheterization lab in the fasting posta bsorptive state. She was prepped and draped in sterile fashion. Local ane sthesia was applied over both femoral veins with 1% lidocaine. Access to the v eins was obtained using modified Seldinger technique with a micropunctur e kit. An 8-Tanzanian and two 6-Tanzanian sheaths were placed in left femoral vei ns. A locking 8, standard 8, and an Agilis sheath were placed in the right fe moral veins. All sheaths were aspirated and flushed and connected to h eparinized saline infusion. Ultrasound guidance was utilized for access. A 5-Tanzanian Isaias ephson catheter was advanced via 6-Tanzanian sheath and placed in the high right atrium. A steerable quadripolar catheter was adv anced via the 8-Tanzanian sheath on the left and placed in the HIS position. A 5-Tanzanian Cournand cathete r was advanced via the remaining 6-Tanzanian sheath an d placed in the right ventricular apex. A decapolar CS catheter was advanced through the loc jn 8-Tanzanian sheath and placed in the coronary sinus. An isthmus DuoDeca catheter was advanced via the 8-Tanzanian sheath on the right and placed in the right atri um around the marino. A ThermoCool SmartTouch ablati on catheter was advanced via the Agilis sheath and a three-dimensional map of the atrial activation s equence was created. This revealed counterclockwise atrial flutter. Entrai nment from the cavotricuspid isthmus was performed. This also confirmed isthm us-dependent counterclockwise atrial flutter. Multiple RF applications were th en made across the cavotricuspid isthmus result ing in termination of atrial flutter. Bidirectional PATIENT NAME: SIA ESCAMILLA ACCOUNT #: [id number] block was verified with differential pacing. The patient tolerated the procedure well with no complications. At the end of the procedure, all catheters were removed. All s heaths were aspirated and flushed and hemostasis was achieved with local pressure. The patient tolerated the procedure well with no complications. CONCLUSIONS: 1. Successful ablation of typical counterclockwi se cavotricuspid isthmus- dependent atrial flutter. 2. Estimated blood loss 15 mL. 3. No complications. Dictated By: Carols Alberto Cash MD WT: OP:ISMAEL/MIL/HAYLIE Conf#: [id number]/DID#: [id number] cc: Bell Edwards MD Authenticated and Edited by Carlos Alberto Cash MD On 10/21/18 2:46:41 PM at 1448 PATIENT NAME: SIA ESCAMILLA 2018-10-21 06:53:00-00:00 [id number] [place] [id number] PATIENT NAME: SIA ESCAMILLA ADMIT DATE: 10/21/18 ACCOUNT NO: [id number] ROOM NO: Z.9 AGE: 78 REPORT TYPE: ELECTROCARDIOGRAM SEX: F ADMITTING PHYSICIAN:Jesse Borjas MD ATTENDING PHYSICIAN:Jesse Borjas MD Order: [id number] Test Reason : ATRIAL FLUTTER Test Date/Time Stamp: SatOct 21 2018 06:53:08 Blood Pressure : / mmHG Vent. Rate : 069 BPM Atrial Rate : 069 BPM P-R Int : 170 ms QRS Dur : 106 ms QT Int : 462 ms P-R-T Axes : 057 045 047 degree s QTc Int : 495 ms Sinus rhythm with premature atrial complexes Incomplete right bundle branch block Prolonged QT Abnormal ECG When compared with ECG of 17-NOV-2016 05:50, premature atrial complexes are now present ST no longer depressed in Lateral leads Nonspecific T wave abnormality now evident in La teral leads QT has lengthened Confirmed by BELL EDWARDS ([id number]) on 10/21/2018 4:42:56 PM Referred By: Carlos Alberto Cash Confirmed by:BELL OVERTON at 1643 PATIENT NAME: SIA ESCAMILLA ACCOUNT #: [id number]
--- NOTE | 2023-01-03 12:39 | RAD REPORT ---
EXAM DESCRIPTION: US - Extremity Venous Uni Ltd - 01/03/2023 12:33 pm CLINICAL HISTORY: SWELLING Leg swelling and edema. COMPARISON: <Comparisons> FINDINGS: Left lower extremity venous system was interrogated with Doppler technique. Normal flow, c ompressibility and augmentation was noted. There is no DVT present. IMPRESSION: No evidence of left lower extremity deep venous thrombosis.
--- NOTE | 2023-01-03 13:18 | RAD REPORT ---
EXAM DESCRIPTION: RAD - Knee Left 3 View - 01/03/2023 1:01 pm CLINICAL HISTORY: knee pain COMPARISON: No comparisons TECHNIQUE: Left knee, 3 views. FINDINGS: No fracture, dislocation or periosteal reaction.No joint effusion seen. No joint space amada rowing, although suboptimal angulation on the AP and oblique views limits evaluation particularly isidro ng the medial weight-bearing compartment. Linear sclerotic density along the distal tibial shaft, may relate to a remote small bone infarct. No soft tissue abnormality. Clinical concerns for internal derangement or occult bony injury could be further assessed with MR im aging. IMPRESSION: No acute osseus abnormality. Findings as above.
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
[2023-01-03 14:04] VITALS: BP 115/66; TEMP 97.9; O2SAT 96
== END 2023-01-03 13:57 | disposition home or self-care (01) ==
LOC: ER 11:49
DX: S80.02XA Contusion of left knee, initial encounter (principal); I10 Essential (primary) hypertension; E78.00 Pure hypercholesterolemia, unspecified
CPT/HCPCS: 93971; 99283

== ENCOUNTER → 2023-08-05 | Emergency (ER) | payer OTHER ==
[~2023-08-05] MED LIST: NA CHLORIDE 0.9% 1,000 ML ONE; ONDANSETRON 4 MG/2 ML VIAL ONE
[2023-08-05 20:40] LABS: Absolute Lymphocytes (CBC) 0.7 K/uL (0.7-4.9); Hematocrit 38.1 % (36.0-45.0); Lymphocytes % 16.3 % (15.3-44.8); MCV 94.8 fL (80-100); MPV 7.4 fL (7.6-11.3); Platelets 200 thou/uL (152-406); RBC Red Blood Cell Count 4.02 M/uL (3.86-4.86)
[2023-08-05 21:00] LABS: Albumin 3.3 g/dL (3.4-5.0); Bilirubin Total 0.6 mg/dL (0.2-1.0); Potassium 3.5 mEq/L (3.5-5.1); Protein, Total 6.2 g/dL (6.4-8.2)
--- NOTE | 2023-08-05 21:04 | ER ---
Nurse's Notes [facility] Name: Sia Anne Age: 82 yrs Sex: Female : 1940 Arrival Date: 08/05/2023 Time: 19:45 Bed 13 Private MD: Diagnosis: Nausea with vomiting, unspecified Presentation: 08/05 20:13 Chief complaint: EMS states: Pt took a supplement called Kidlandia brain today at 1300 and cm10 then started feeling nauseous and dizzy. Pt denies any pain. Pt eating crackers during triage. Coronavirus screen: Vaccine status: Patient reports receiving the 2nd dose of the covid vaccine. Client denies travel out of the [place] in the last 14 days. Ebola Screen: Patient denies travel to an Ebola-affected area in the 21 days before illness onset. No symptoms or risks identified at this time. Initial Sepsis Screen: Does the patient meet any 2 criteria? No. Patient's initial sepsis screen is negative. Does the patient have a suspected source of infection? No. Patient's initial sepsis screen is negative. Risk Assessment: Do you want to hurt yourself or someone else? Patient reports no desire to harm self or others. Onset of symptoms was August 05, 2023. 20:13 Method Of Arrival: EMS: [facility] cm10 20:13 Acuity: GABY 3 cm10 20:16 Care prior to arrival: Glucose check: 124. cm10 Historical: - Allergies: 20:11 No Known Allergies; cm10 - Home Meds: 20:11 lisinopril 20 mg oral tablet daily [Active]; hydrochlorothiazide 25 mg Oral tablet cm10 daily [Active]; Cholestyramine Light oral [Active]; escitalopram oxalate 10 mg oral tablet [Active]; atorvastatin 20 mg oral tablet [Active]; - PMHx: 20:11 Hypercholesterolemia; Hypertensive disorder; cm10 - Immunization history:: Adult Immunizations up to date. - Social history:: Smoking status: Patient denies any tobacco usage or history of. Screenin:39 Abuse screen: Denies threats or abuse. Denies injuries from another. Nutritional ha1 screening: No deficits noted. Tuberculosis screening: No symptoms or risk factors identified. Assessment: 20:00 General: Appears comfortable, Behavior is calm, cooperative. Pain: Denies pain. Neuro: ha1 Level of Consciousness is awake, alert, obeys commands, Oriented to person, place, time, situation. Neuro: Reports weakness generalized. Cardiovascular: Capillary refill < 3 seconds Patient's skin is warm and dry. Respiratory: Airway is patent Respiratory effort is even, unlabored, Respiratory pattern is regular, symmetrical. GI: Abdomen is flat, non-distended, Bowel sounds present X 4 quads. Abd is soft and non tender Reports nausea. Derm: Skin is pink, warm \T\ dry. Vital Signs: 20:13 BP 173 / 81; Pulse 69; Resp 16 S; Temp 97.1; Pulse Ox 99% on R/A; Weight 79.38 kg; cm10 Height 5 ft. 7 in. ; Pain 0/10; 20:38 BP 174 / 79; Pulse 64; Resp 17 S; Pulse Ox 99% on R/A; ha1 20:13 Body Mass Index 27.41 (79.38 kg, 170.18 cm) cm10 20:13 Pain Scale: Adult cm10 ED Course: 19:48 Patient arrived in ED. sb4 19:50 Rossi Bain PA-C is PHCP. sb4 19:50 Manfred Armas DO is Attending Physician. sb4 20:00 Patient has correct armband on for positive identification. Placed in gown. Bed in low ha1 position. Call light in reach. Side rails up X2. Adult w/ patient. 20:05 Inserted saline lock: 22 gauge in left antecubital area, using aseptic technique. Blood ha1 collected. 20:11 Josafat Corrales, RN is Primary Nurse. bp 20:16 Triage completed. cm10 20:16 Arm band placed on Patient placed in an exam room, on a stretcher, on pulse oximetry. cm10 20:23 CBC with Diff Sent. ha1 20:23 CMP Sent. ha1 20:23 Lipase Sent. ha1 20:36 CBC with Diff Sent. ha1 20:36 CMP Sent. ha1 20:36 Lipase Sent. ha1 21:32 Provided Education on: medication administration . ha1 21:32 No provider procedures requiring assistance completed. IV discontinued, intact, ha1 bleeding controlled, No redness/swelling at site. Pressure dressing applied. Administered Medications: 20:36 Drug: Ondansetron IVP 4 mg IVP once; over 2 minutes Route: IVP; Site: left antecubital; ha1 21:33 Follow up: Response: No adverse reaction; Marked relief of symptoms; RASS: Alert and ha1 Calm (0) 21:06 Drug: NS 0.9% IV 1000 ml IV at 1 bolus Per protocol; 1000 mL bolus Route: IV; Rate: 1 ha1 bolus; Site: left antecubital; 21:33 Follow up: Response: No adverse reaction; IV Status: Completed infusion; IV Intake: ha1 1000ml Medication: 20:39 VIS not applicable for this client. ha1 Intake: 21:33 IV: 1000ml; Total: 1000ml. ha1 Outcome: 21:04 Discharge ordered by . sb4 21:32 Discharged to home via wheelchair, with family, ha1 21:32 Condition: stable 21:32 Discharge instructions given to patient, family, Instructed on discharge instructions, follow up and referral plans. medication usage, Demonstrated understanding of instructions, follow-up care, medications, Prescriptions given X 1, 21:33 Patient left the ED. ha1 Signatures: Josafat Corrales RN RN Mariella Demarco RN RN ha1 Rossi Bain, PA-C PA-C Gely Mckinley, RN RN cm10
--- NOTE | 2023-08-05 21:05 | EDPHYS ---
Physician Documentation [facility] Name: Sia Anne Age: 82 yrs Sex: Female : 1940 Arrival Date: 08/05/2023 Time: 19:45 Bed 13 Private MD: ED Physician Manfred Armas HPI: 08/05 19:58 This 82 yrs old Female presents to ER via Unassigned with complaints of nausea/vomiting.sb4 19:58 The patient presents to the emergency department with nausea, vomiting. Onset: The sb4 symptoms/episode began/occurred this morning. Possible causes: supplement. patient states that she took an "alpha brain" supplement this afternoon on an empty stomach to try and combat brain fog. she states that shortly after, she starting experiencing nausea and vomiting and generally not feeling well. VSS for EMS. upon my assessment, her only complaint is that she is hungry. Historical: - Allergies: 20:11 No Known Allergies; cm10 - Home Meds: 20:11 lisinopril 20 mg oral tablet daily [Active]; hydrochlorothiazide 25 mg Oral tablet cm10 daily [Active]; Cholestyramine Light oral [Active]; escitalopram oxalate 10 mg oral tablet [Active]; atorvastatin 20 mg oral tablet [Active]; - PMHx: 20:11 Hypercholesterolemia; Hypertensive disorder; cm10 - Immunization history:: Adult Immunizations up to date. - Social history:: Smoking status: Patient denies any tobacco usage or history of. ROS: 19:58 Constitutional: Negative for fever, chills, and weight loss, sb4 19:58 Abdomen/GI: Positive for nausea and vomiting, 19:58 All other systems are negative, Exam: 19:58 Constitutional: This is a well developed, well nourished patient who is awake, alert, sb4 and in no acute distress. Head/Face: Normocephalic, atraumatic. Eyes: Extra-ocular motions intact. Periorbital areas with no swelling, redness, or edema. ENT: Mucous membranes moist. Cardiovascular: Regular rate and rhythm with a normal S1 and S2. Respiratory: Lungs have equal breath sounds bilaterally, clear to auscultation and percussion. No rales, rhonchi or wheezes noted. No increased work of breathing, no retractions or nasal flaring. Abdomen/GI: Soft, non-tender, no distension. Skin: Warm, dry with normal turgor. Normal color with no rashes, no lesions, and no evidence of cellulitis. MS/ Extremity: Pulses equal, no cyanosis. Neurovascular intact. Full, normal range of motion. Neuro: Awake and alert, GCS 15, oriented to person, place, time, and situation. Motor strength 5/5 in all extremities. Sensory grossly intact. Vital Signs: 20:13 BP 173 / 81; Pulse 69; Resp 16 S; Temp 97.1; Pulse Ox 99% on R/A; Weight 79.38 kg; cm10 Height 5 ft. 7 in. ; Pain 0/10; 20:38 BP 174 / 79; Pulse 64; Resp 17 S; Pulse Ox 99% on R/A; ha1 20:13 Body Mass Index 27.41 (79.38 kg, 170.18 cm) cm10 20:13 Pain Scale: Adult cm10 MDM: 19:50 Patient medically screened. sb4 19:58 Differential diagnosis: gastroenteritis, drug reaction. sb4 20:05 ED course: alpha brain contains vitamin B6, L-tyrosine, oat extract, sb4 phosphatidylserine, cat's claw extract, L-alpha glycerylphosphoylcholine, bacopa extract, huperzia laya extract, L-leucine, prterostilbene, vegetarian capsule, and silica. 21:04 Data reviewed: vital signs, nurses notes, lab test result(s), and as a result, I will sb4 discharge patient. Counseling: I had a detailed discussion with the patient and/or guardian regarding the historical points, exam findings, and any diagnostic results supporting the discharge/admit diagnosis, lab results, to return to the emergency department if symptoms worsen or persist or if there are any questions or concerns that arise at home. 08/05 19:54 Order name: CBC with Diff; Complete Time: 20:49 sb4 08/05 19:54 Order name: CMP; Complete Time: 21:03 sb4 08/05 19:54 Order name: Lipase; Complete Time: 21:03 sb4 08/05 19:54 Order name: IV Saline Lock; Complete Time: 20:23 sb4 08/05 19:54 Order name: Labs collected and sent; Complete Time: 20:23 sb4 Administered Medications: 20:36 Drug: Ondansetron IVP 4 mg IVP once; over 2 minutes Route: IVP; Site: left antecubital; ha1 21:33 Follow up: Response: No adverse reaction; Marked relief of symptoms; RASS: Alert and ha1 Calm (0) 21:06 Drug: NS 0.9% IV 1000 ml IV at 1 bolus Per protocol; 1000 mL bolus Route: IV; Rate: 1 ha1 bolus; Site: left antecubital; 21:33 Follow up: Response: No adverse reaction; IV Status: Completed infusion; IV Intake: ha1 1000ml Disposition: 20:22 I was immediately available on-site in the Emergency Department for consultation in the ms3 care of the patient. Disposition Summary: 08/05/23 21:04 Discharge Ordered Notes: Location: Home sb4 Problem: new sb4 Symptoms: have improved sb4 Condition: Stable sb4 Diagnosis - Nausea with vomiting, unspecified sb4 Followup: sb4 - With: Emergency Department - When: As needed - Reason: Trouble breathing, Worsening of condition Discharge Instructions: - Discharge Summary Sheet sb4 - Nausea and Vomiting, Adult sb4 Forms: - Medication Reconciliation Form sb4 - Thank You Letter sb4 - Antibiotic Education sb4 - Prescription Opioid Use sb4 - Patient Portal Instructions sb4 - Leadership Thank You Letter sb4 Prescriptions: - Zofran 4 mg Oral Tablet - take 1 tablet ORAL route every 12 hours As needed; 20 tablet; Refills: 0, sb4 Product Selection Permitted Signatures: Dispatcher [employer] EDManfred Edwards DO DO ms3 Mariella Hernández RN RN ha1 Rossi Bain PA-C PA-C sb4 Gely Flower RN RN cm10
[2023-08-06 01:42] VITALS: BP 174/79; TEMP 97.1; O2SAT 99
== END ==
LOC: ER 19:45
DX: R11.2 Nausea with vomiting, unspecified (principal); I10 Essential (primary) hypertension; E78.00 Pure hypercholesterolemia, unspecified
CPT/HCPCS: 85025; 36415; 83690; 80053; J2405; J7030